=== PATIENT | male | born 1955 | race Caucasian/White ===

== ENCOUNTER 2023-01-13 06:57 | Inpatient (IN) ==
[2023-01-13] MEDS ORDERED: LIDOCAINE 5% 1 PATCH TD STA (07:16)
[2023-01-13] MEDS ORDERED: MoRPHine SULFATE 2 MG/ML CARP IV STA (07:16)
--- NOTE | 2023-01-13 07:23 | Emergency Department Note ---
History of Present Illness General Chief complaint: Back Injury/Pain Time Seen by Provider: 01/13/23 07:04 History of Present Illness Maximum Pain Intensity: 10 This is a 67-year-old male that presents to the emergency department via private vehicle accompanied by with complaints of "right low back/leg pain". The patient notes over the past few days he has had some mild discomfort to the right low back and then last night while sitting seem to sharply worsen. He notes that it radiates from the right low back down the right leg. He has to stay in a slightly hunched over position to have any comfort. He notes that if he attempts to lay flat or stand the pain is significant. He notes low back pain earlier this year which led to him receiving an injection he lives was a steroid injection at [facility] by Dr. Ma on November 21 of this year. Patient notes that the pain he has today is significantly worsened compared to pain he has had before in the back. He denies any fevers, chills, chest pain, shortness of breath or abdominal pain. He notes perhaps some numbness in the right anterior thigh region. No weakness. No bowel or bladder incontinence. No numbness or tingling in genital region. No fevers. No infectious symptoms. No history of spine surgery. Home Medications Medication Instructions Recorded Confirmed Type aspirin 81 mg tablet,delayed 81 mg PO PM 04/14/19 01/13/23 History release (Aspir-) atorvastatin 40 mg tablet 40 mg PO HS 04/14/19 01/13/23 History losartan 25 mg tablet 25 mg PO PM 04/14/19 01/13/23 History semaglutide 1 mg/dose (2 mg/1.5 1 mg subcut WK 04/14/19 01/13/23 History mL) subcutaneous pen injector (Ozempic) glipizide 10 mg tablet, extended See Rx Instructions .Route .COMPLEX 01/13/23 01/13/23 History release 24 hr glipizide 5 mg tablet, extended See Rx Instructions .Route .COMPLEX 01/13/23 01/13/23 History release 24 hr metformin 500 mg tablet,extended 2,000 mg PO PM 01/13/23 01/13/23 History release 24 hr Allergies Allergy/AdvReac Type Severity Reaction Status Date / Time bee venom protein (honey bee) Allergy Intermediate ITCHING/SWE Verified 01/13/23 09:58 LLING Penicillins Allergy Unknown RASH Verified 01/13/23 09:58 Past Med/Surg History Medical History Osteoarthritis Diabetes mellitus, type 2 Hyperlipidemia Hypertension Surgical History History of right cataract surgery 04/20/2019. 2mg versed. no issues. History of appendectomy History of total knee replacement BILAT History of colonoscopy History of tooth extraction History of tonsillectomy Family History Father Colon cancer Social History Smoking Status: Never smoker Second Hand Exposure: No; Do You Dip or Chew Tobacco: No; Hx Alcohol Use: No Hx Substance Use: Yes Last Used Substance Other:: Last used in 1985. Substance Use Type Other:: Alcohol Preferred Language: Pashto Communication Ability: Effective Laboratory Aide Required: No Beliefs That Will Affect Care: None Current Living Situation: Spouse Other Information That Helps Us Care for You: No Feels Safe at Home: Yes Safety Concerns: Feels Safe At This Time Assistive Devices: Denture - Upper and Denture - Lower Review of Systems A total of 10 systems reviewed and were otherwise negative Physical Exam Vital Signs Vital Signs - 24 hr 01/13/23 07:01 01/13/23 07:37 01/13/23 07:37 Temperature 36.2 C L Temperature Source Temporal Artery Scan Pulse Rate 76 Pulse Rate [Apical] 75 Respiratory Rate 18 18 Respiratory Effort / Characteristics Non-Labored Respiratory Depth Normal Blood Pressure 175/88 H Blood Pressure [Left Arm] Blood Pressure Mean 117 Blood Pressure Mean [Left Arm] Pulse Oximetry 97 98 99 Oxygen Delivery Method Room Air Room Air Sepsis Recent Fever Within 48 Hours No Sepsis New/Unexplained Change in Mental Status No Sepsis Action Taken by Nursing No Action Required 01/13/23 09:36 01/13/23 09:38 Temperature Temperature Source Pulse Rate 81 Pulse Rate [Apical] 75 Respiratory Rate 16 Respiratory Effort / Characteristics Respiratory Depth Blood Pressure Blood Pressure [Left Arm] 135/82 Blood Pressure Mean Blood Pressure Mean [Left Arm] 99 Pulse Oximetry 97 Oxygen Delivery Method Sepsis Recent Fever Within 48 Hours Sepsis New/Unexplained Change in Mental Status Sepsis Action Taken by Nursing VITAL SIGNS - Vital signs and nursing notes were reviewed. Stable and afebrile. GENERAL -67-year-old male appearing his stated age who is in no acute distress but appears to be in pain. Communicates well with provider and answers questions appropriately. SKIN - Without rashes. No meningeal or petechial rash. No herpetic lesions. The skin overlying the right low back is unremarkable. HEAD - NC/AT. EYES - PERRL with EOMI bilaterally. Sclera anicteric. EARS - No deformities of external structures noted on gross examination bilaterally. NOSE - Midline and without cyanosis. No epistaxis or purulent drainage noted. MOUTH/OROPHARYNX - Without perioral cyanosis. NECK - Neck with FROM. No nuchal rigidity. LUNGS - Chest wall symmetric without accessory muscle use, intercostals retractions, or central cyanosis. Normal vesicular breath sounds CTA B/L. No wheezes, rales, or rhonchi appreciated. CARDIAC - RRR with S1/S2. No murmur, rubs, or gallops appreciated. ABDOMEN - Abdominal contour normal without pulsations or visible masses. BS normoactive all four quadrants. No tenderness, palpable masses, hepatosplenomegaly, or ascites noted. EXTREMITIES - No clubbing or peripheral cyanosis. +5/5 strength noted in UE/LE bilaterally. All Musculoskeletalthe patient is able to stand at the bedside but in a hunched over position. He is not able to stand up straight or any normal position. He is also not able to lay flat without severe pain. NEUROLOGIC - Cranial nerves II through XII grossly intact. No deficits of the lower extremities. PSYCH - A&O, and cooperates fully with examiner. Pt is very pleasant and interacts well with examiner. Course Administered Medications Hydrocodone Bitart/Acetaminophen (Hydrocodone/Acetamophen 5/325mg Tab) 1 tab PO Q6H PRN PRN Reason: Severe Pain (Scale 7, 8, 9,10) Stop: 01/27/23 11:41 Last Admin: 01/13/23 20:20 Dose: 1 tab Documented By: BALA Aspirin (Aspirin 81 Mg Ectab) 81 mg PO PM SYMONE Stop: 02/12/23 20:59 Last Admin: 01/13/23 20:21 Dose: 81 mg Documented By: BALA Atorvastatin Calcium (Atorvastatin 40 Mg Tab) 40 mg PO HS [facility] Stop: 02/12/23 20:59 Last Admin: 01/13/23 20:20 Dose: 40 mg Documented By: BALA Docusate Sodium (Docusate Sodium 100 Mg Cap) 100 mg PO BID [facility] Stop: 02/12/23 10:59 Last Admin: 01/13/23 20:23 Dose: 100 mg Documented By: Admin: 01/13/23 11:15 Dose: 100 mg Documented By: KHUSHI Heparin Sodium (Porcine) (Heparin Sod 5,000 Unit/0.5 Ml Vial) 5,000 units SQ Q12 [facility] Stop: 02/12/23 20:59 Last Admin: 01/13/23 20:21 Dose: 5,000 units Documented By: BALA Insulin Aspart (Insulin Aspart Per Unit Charge) 0 units SC ACHS [facility] Stop: 02/12/23 11:29 Last Admin: 01/13/23 21:39 Dose: Not Given Documented By: BALA Co-signed By: JEROD Admin: 01/13/23 17:32 Dose: Not Given Documented By: Admin: 01/13/23 12:56 Dose: Not Given Documented By: JOSE Insulin Glargine (Lantus Per Unit Charge) 8 units SQ BID [facility] Stop: 02/12/23 10:44 Last Admin: 01/13/23 21:39 Dose: 8 units Documented By: BALA Co-signed By: JEROD Admin: 01/13/23 11:15 Dose: 8 units Documented By: KHUSHI Co-signed By: JERE Losartan Potassium (Losartan Potassium 25 Mg Tab) 25 mg PO PM [facility] Stop: 02/12/23 20:59 Last Admin: 01/13/23 20:21 Dose: 25 mg Documented By: BALA Miscellaneous (Remove Lidoderm Patch) 1 each N/A DAILY@2100 [facility] Stop: 02/12/23 20:59 Last Admin: 01/13/23 21:40 Dose: 1 each Documented By: BALA Oxycodone HCl (Oxycodone Hcl Ir 5 Mg Tab (Immediate Release)) 5 mg PO Q6H PRN PRN Reason: Moderate Pain (Scale 4, 5, 6) Stop: 01/27/23 11:41 Last Admin: 01/13/23 14:26 Dose: 5 mg Documented By: JOSE Discontinued Medications Fentanyl Citrate (Fentanyl Citrate Pf 100 Mcg/2 Ml Vial) 50 mcg IV NOW STA Stop: 01/13/23 08:16 Last Admin: 01/13/23 08:20 Dose: 50 mcg Documented By: AUGUSTUS Ketorolac Tromethamine (Ketorolac Tromethamine 15 Mg/Ml Vial) 10 mg IV NOW ONE Stop: 01/13/23 10:05 Last Admin: 01/13/23 10:26 Dose: 10 mg Documented By: AUGUSTUS Lidocaine (Lidocaine 5% 1 Patch) 1 patch TD NOW STA Stop: 01/13/23 07:17 Last Admin: 01/13/23 07:28 Dose: 1 patch Documented By: AUGUSTUS Morphine Sulfate (Morphine Sulfate 2 Mg/Ml Carp) 2 mg IV NOW STA Stop: 01/13/23 07:17 Last Admin: 01/13/23 07:28 Dose: 2 mg Documented By: AUGUSTUS Medical Decision Making Laboratory Data 01/13/23 07:30 01/13/23 07:30 Lab Results 01/13/23 Range/Units 07:30 WBC 6.97 (4.8-10.8) K/ul RBC 4.69 L (4.70-6.10) M/uL Hgb 13.9 L (14.0-18.0) g/dl Hct 41.2 L (42.0-52.0) % MCV 87.8 (80.0-100.0) fL MCH 29.6 (25.0-34.0) pg MCHC 33.7 (32.0-36.0) g/dL RDW Std Deviation 45.8 (36.4-46.3) fL RDW Coeff of [place] 14.3 (11.5-14.5) % Plt Count 201 (130-400) K/uL MPV 10.0 (9.4-12.4) fL Immature Gran % (Auto) 0.6 % Neut % (Auto) 70.5 % Lymph % (Auto) 19.9 % [place] % (Auto) 5.9 % Eos % (Auto) 2.7 % Baso % (Auto) 0.4 % Neut # (Auto) 4.91 (1.40-6.50) K/uL Lymph # (Auto) 1.39 (1.20-3.40) K/uL [place] # (Auto) 0.41 (0.11-0.59) K/uL Eos # (Auto) 0.19 (0.00-0.50) K/uL Baso # (Auto) 0.03 (0.00-0.20) K/uL Immature Gran # (Auto) 0.04 (0.01-0.20) K/uL Sodium 142 (136-145) mmol/L Potassium 4.2 (3.5-5.1) mmol/L Chloride 109 H (98-107) mmol/L Carbon Dioxide 22 (21-32) mmol/L Anion Gap 11 (3-11) BUN 22 (6-23) mg/dl Creatinine 1.05 (0.6-1.4) mg/dl Est Cr Clr Drug Dosing 71.6 ml/min Est GFR ( Amer) 84.1 ml/min Est GFR (Non-Af Amer) 72.6 ml/min BUN/Creatinine Ratio 21.0 H (10-20) Glucose 117 H (70-99(Fasting)) mg/dl Calcium 9.2 (8.6-10.3) mg/dl Total Bilirubin 0.6 (0.2-1.0) mg/dl AST 29 (13-39) U/L ALT 26 (7-52) U/L Alkaline Phosphatase 48 (34-104) U/L Total Protein 7.4 (6.0-8.3) gm/dl Albumin 4.4 (3.4-5.0) gm/dl Globulin 3.0 (2.5-4.0) gm/dl Albumin/Globulin Ratio 1.5 (0.9-2) Imaging Data Radiologist's Impression: CT abd pelvis wo con, CT lumbar spine wo con CLINICAL HISTORY: R low back pain, into R gluteal area, down R leg TECHNIQUE: Helical axial images of the abdomen and pelvis were obtained. Automated dose lowering techniques and/or adjustment according to patient size were utilized for this exam. This exam was performed without intravenous contrast. COMPARISON: None available at the time of this dictation. FINDINGS: Lower chest: No acute abnormality. Atherosclerotic disease is seen in the coronary arteries. Liver: Unremarkable. No focal lesions are seen. Gallbladder and biliary tree: No calcified gallstones. Normal caliber wall. No intra- or extrahepatic biliary ductal dilation. Pancreas: Unremarkable, no focal lesions. Spleen: Unremarkable. Adrenals: Unremarkable. Kidneys and ureters: Nonobstructive nephrolithiasis is seen. Bladder: Unremarkable. Reproductive organs: Unremarkable. Bowel: Diverticulosis is seen without evidence of diverticulitis. There is a tiny hiatal hernia. Lymph nodes Retroperitoneal: Unremarkable. Pelvic: Unremarkable. Mesenteric: Unremarkable. Peritoneum: Normal. Vessels: Atherosclerotic calcifications are seen. Abdominal wall: Left fat containing inguinal hernia. Bones: Prominent degenerative changes are seen in the spine and left greater than right hip joints. Partial visualization of degenerative disc disease in the lower spine which may result in significant neural foraminal stenosis. IMPRESSION: 1. No acute abnormalities in particular no evidence of fracture or other acute abnormality to explain leg pain. Degenerative changes are seen in the spine, if there is concern for neural foraminal stenosis, MRI can be performed. 2. Nonobstructive nephrolithiasis. 3. Diverticulosis without diverticulitis. ACT 112: Negative or not required by law. Electronically signed by: Saúl Ag M.D. 01/13/2023 8:52 AM MDM Narrative Patient was seen and evaluated as above in room A02. Review was performed of triage nursing notes and vital signs. After obtaining a thorough history and physical examination the above work up was performed. Patient presents today for evaluation of rather acute and sudden worsening of right low back pain that radiates down the right leg. No known trauma or injury. The patient is not able to stand straight up or lie flat. He notes severe pain when attempting to do those movements. He has to stay essentially in a crouched or hunched position. No evidence of cauda equina syndrome. Options of care were discussed with the patient. IV access was established. He was medicated with IV analgesics as well as lidocaine patch. Labs were drawn. There is no leukocytosis. There is minor anemia noted with hemoglobin at 13.9. No emergent metabolic disturbance. Glucose 117. Urinalysis reveals what is likely a contaminated sample. Noting the patient's symptoms decision was made to proceed with L-spine CT as well as abdomen/pelvis CT to further evaluate noting the severity of his pain. Patient was sent to the CT scanner after receiving IV analgesics but unfortunately was unable to lie flat and had to return for additional IV analgesics. Results as above. There were no acute abnormalities seen. Degenerative changes are seen in the spine. Although MRI may be beneficial to further evaluate, the patient notes he is not able to lay flat for extended period of time presently. The patient does not have any neurovascular deficits. The patient did receive IV analgesics here in the emergency department. He continued with inability to fully stand up straight or lie flat for any period of time. I discussed options in regard to inpatient versus outpatient management. I discussed these options with his present at bedside as well. At this time we will proceed with inpatient management. I am concerned that if the patient would go home in this present state he would be of increased fall risk and would have I believe a difficult time managing his pain as even despite IV pain meds here, his pain persisted. Case was discussed with the hospitalist service. Please refer to further documentation regarding his stay. I suspect lumbar radiculopathy on the right. I did decide to hold off on steroids at the present time pending further evaluation and management. The patient is diabetic. While in the department, I personally reevaluated the patient several times and each time the patient was found to be resting comfortably. The patient was educated upon management, educated upon todays findings/results, educated upon importance of follow up from today's visit, educated upon symptoms in which to return, had questions answered prior to discharge, verbalized understanding, and was discharged home in good condition. Case was discussed with the attending physician. GCS: 15 In the evaluation and treatment of this patient the following differential diagnosis entertained: Fracture, dislocation, subluxation, cauda equina syndrome, AAA, diverticulitis, appendicitis, torsion, osteomyelitis, piriformis syndrome, strain, sprain, among others. Impression & Plan Radicular pain of right lower extremity, Right low back pain Discharge Plan Visit Data Chief Complaint: Back Injury/Pain ED Provider: [facility] Midlevel Provider: Moody Zaidi Discharge Problem: Radicular pain of right lower extremity, Right low back pain Patient Disposition: Admitted As Inpatient Condition: Good Discharge Instructions Interventions: ED Discharge Assessment Last Done: 01/13/23 11:47
[2023-01-13 07:56] LABS: Basophils # (auto) 0.03 K/uL (0.00-0.20); Basophils % (auto) 0.4 %; Eosinophils # (auto) 0.19 K/uL (0.00-0.50); Eosinophils % (auto) 2.7 %; Hematocrit (blood only) 41.2 % (42.0-52.0); Hemoglobin 13.9 g/dl (14.0-18.0); Immature Granulocytes # (auto) 0.04 K/uL (0.01-0.20); Immature Granulocytes % (auto) 0.6 %; Lymphocytes # (auto) 1.39 K/uL (1.20-3.40); Lymphocytes % (auto) 19.9 %; Mean Corpuscular Hemoglobin 29.6 pg (25.0-34.0); Mean Corpuscular Hgb Conc 33.7 g/dL (32.0-36.0); Mean Corpuscular Volume 87.8 fL (80.0-100.0); Monocytes # (auto) 0.41 K/uL (0.11-0.59); Monocytes % (auto) 5.9 %; Neutrophils # (auto) 4.91 K/uL (1.40-6.50); Neutrophils % (auto) 70.5 %; Platelet Count 201 K/uL (130-400); RDW Coefficient of Variation 14.3 % (11.5-14.5); RDW Standard Deviation 45.8 fL (36.4-46.3); Red Blood Count 4.69 M/uL (4.70-6.10); White Blood Count 6.97 K/ul (4.8-10.8)
[2023-01-13 08:15] LABS: Albumin Globulin Ratio 1.5 (0.9-2); Albumin Level 4.4 gm/dl (3.4-5.0); Bilirubin,Total 0.6 mg/dl (0.2-1.0); Calcium 9.2 mg/dl (8.6-10.3); Creatinine Clr Calc Pharmacy 71.6 ml/min; Est GFR (African American) 84.1 ml/min; Est GFR (Non-African American) 72.6 ml/min; Potassium 4.2 mmol/L (3.5-5.1); Total Protein 7.4 gm/dl (6.0-8.3)
[2023-01-13] MEDS ORDERED: fentaNYL citrate PF 100 MCG/2 ML VIAL IV STA (08:15)
--- NOTE | 2023-01-13 08:53 | CT Scan Report ---
CT abd pelvis wo con, CT lumbar spine wo con CLINICAL HISTORY: R low back pain, into R gluteal area, down R leg TECHNIQUE: Helical axial images of the abdomen and pelvis were obtained. Automated dose lowering tech niques and/or adjustment according to patient size were utilized for this exam. This exam was perfor med without intravenous contrast. COMPARISON: None available at the time of this dictation. FINDINGS: Lower chest: No acute abnormality. Atherosclerotic disease is seen in the coronary arteries. Liver: Unremarkable. No focal lesions are seen. Gallbladder and biliary tree: No calcified gallstones. Normal caliber wall. No intra- or extrahepatic biliary ductal dilation. Pancreas: Unremarkable, no focal lesions. Spleen: Unremarkable. Adrenals: Unremarkable. Kidneys and ureters: Nonobstructive nephrolithiasis is seen. Bladder: Unremarkable. Reproductive organs: Unremarkable. Bowel: Diverticulosis is seen without evidence of diverticulitis. There is a tiny hiatal hernia. Lymph nodes Retroperitoneal: Unremarkable. Pelvic: Unremarkable. Mesenteric: Unremarkable. Peritoneum: Normal. Vessels: Atherosclerotic calcifications are seen. Abdominal wall: Left fat containing inguinal hernia. Bones: Prominent degenerative changes are seen in the spine and left greater than right hip joints. P artial visualization of degenerative disc disease in the lower spine which may result in significant neural foraminal stenosis. IMPRESSION: 1. No acute abnormalities in particular no evidence of fracture or other acute abnormality to explai n leg pain. Degenerative changes are seen in the spine, if there is concern for neural foraminal sten osis, MRI can be performed. 2. Nonobstructive nephrolithiasis. 3. Diverticulosis without diverticulitis. ACT 112: Negative or not required by law. Electronically signed by: Saúl Ag M.D. 01/13/2023 8:52 AM
[2023-01-13] MEDS ORDERED: KETOROLAC TROMETHAMINE 15 MG/ML VIAL IV ONE (10:04)
[2023-01-13] MEDS ORDERED: ONDANSETRON INJ 2 MG/ML 2 ML VIAL IV PRN (10:39)
[2023-01-13] MEDS ORDERED: ALUMINUM/MAGNESIUM SUSP 30 ML UDC PO PRN (10:39)
[2023-01-13] MEDS ORDERED: POLYETHYLENE (MIRALAX) 17 GM PACK PO PRN (10:39)
[2023-01-13] MEDS ORDERED: ACETAMINOPHEN 325 MG TAB PO PRN (10:39)
[2023-01-13] MEDS ORDERED: GLUCOSE 40% GEL 15 GM TUBE PO PRN (10:42)
[2023-01-13] MEDS ORDERED: CARBOHYDRATES FOR HYPOGLYCEMIA PO PRN (10:42)
[2023-01-13] MEDS ORDERED: DEXTROSE 50% 50 ML SYRINGE IV PRN (10:42)
[2023-01-13] MEDS ORDERED: GLUCOSE 10 TAB/TUBE PO PRN (10:42)
[2023-01-13] MEDS ORDERED: GLUCAGON FOR INJ 1 MG VIAL SQ PRN (10:42)
--- NOTE | 2023-01-13 10:56 | History & Physical Report ---
Date of Service January 13, 2023 Assessment & Plan (1) Radicular pain of right lower extremity: (2) Right low back pain: Plan Patient came in with abrupt worsening of right lower back pain since yesterday, radiating down to RLE. He is being managed for the following: Right low back pain RLE radicular symptoms Symptoms as above, admitting imaging with no acute finding or fracture. Concern for neural foraminal stenosis, MRI could not be performed as patient not able to lie flat. Continue with pain management, bowel regimen included, nausea control. MRI lumbar spine in the a.m., orthospine consult in the a.m. if symptoms persist. PT/OT when able. Other chronic medical conditions: As mentioned in the HPI, continue with/resume home meds as and when able. DVT prophylaxis: Heparin subcu Full code History of Present Illness Chief Complaint: Right low back pain Primary Care Provider: Preeti Landin MD 67-year-old male with PMH of T2DM, HLD, HTN, BPH presented to the ED with complaint of abrupt worsening of right lower back pain since yesterday, patient notes that he has been having some right low back pain for past couple of days. Reports pain is sharp, radiating down right lower extremity up to ankle, unable to lie flat or stand, slept on recliner last night, it is affecting his activities of daily living severely and hence decided to come to the hospital. Patient reports pain of 8/10 intensity. Patient denies fever/headache/dizziness/sore throat/cough/chest pain/palpitations/abdominal pain/acute changes in his bowel or bladder habits. Patient reports he generally walks 3 miles a day without any shortness of breath/chest pain/getting winded/dizziness. Patient reports no smoking, quitting drinking in 1995, denies use of recreational drugs Full code Medications reviewed with the patient, plan of care discussed with the patient and patient was agreeable. Allergies Allergy/AdvReac Type Severity Reaction Status Date / Time bee venom protein (honey bee) Allergy Intermediate ITCHING/SWE Verified 01/13/23 09:58 LLING Penicillins Allergy Unknown RASH Verified 01/13/23 09:58 Home Medications Medication Instructions Recorded Confirmed Type aspirin 81 mg tablet,delayed 81 mg PO PM 04/14/19 01/13/23 History release (Aspir-) atorvastatin 40 mg tablet 40 mg PO HS 04/14/19 01/13/23 History losartan 25 mg tablet 25 mg PO PM 04/14/19 01/13/23 History semaglutide 1 mg/dose (2 mg/1.5 1 mg subcut WK 04/14/19 01/13/23 History mL) subcutaneous pen injector (Ozempic) glipizide 10 mg tablet, extended See Rx Instructions .Route .COMPLEX 01/13/23 01/13/23 History release 24 hr glipizide 5 mg tablet, extended See Rx Instructions .Route .COMPLEX 01/13/23 01/13/23 History release 24 hr metformin 500 mg tablet,extended 2,000 mg PO PM 01/13/23 01/13/23 History release 24 hr Past Med/Surg History Medical History Osteoarthritis Diabetes mellitus, type 2 Hyperlipidemia Hypertension Surgical History History of right cataract surgery 04/20/2019. 2mg versed. no issues. History of appendectomy History of total knee replacement BILAT History of colonoscopy History of tooth extraction History of tonsillectomy Family History Father Colon cancer Social History Smoking Status: Never smoker Second Hand Exposure: No; Do You Dip or Chew Tobacco: No; Hx Alcohol Use: No Hx Substance Use: No Preferred Language: Croatian Communication Ability: Effective Fitness Club Manager Required: No Beliefs That Will Affect Care: None Current Living Situation: Spouse Feels Safe at Home: Yes Assistive Devices: Denture - Upper, Denture - Lower and Glasses Review of Systems Review of Systems: Negative otherwise mentioned in HPI. Physical Exam Physical Exam: GENERAL: Alert and oriented x3. Mild distress due to pain, on RA. HEENT: No pallor, no icterus. Pupils equal, round and reactive to light. Oral mucosa moist. NECK: No JVD, no neck masses. HEART: S1 and S2 heard. Regular rate and rhythm. No murmur, no gallop. RESPIRATORY SYSTEM: Normal AP diameter. No accessory muscle use. No wheezing, no crackles. ABDOMEN: Soft, bowel sounds present, nontender, no distention. CENTRAL NERVOUS SYSTEM: No facial droop. Speech is clear. Obeys simple commands. Moves extremities. EXTREMITIES: No edema, no erythema seen. SLRT could not be performed as patient cannot lie flat, patient was sitting up in bed/leaning forward. Results & Data Results & Data Vital Signs (Past 12 Hours) Vital Signs Temp Pulse Pulse Resp BP BP Pulse Ox 01/13/23 10:39 56 L 16 122/82 97 01/13/23 09:38 81 01/13/23 09:36 75 16 135/82 97 01/13/23 07:37 99 01/13/23 07:37 75 18 98 01/13/23 07:01 36.2 C L 76 18 175/88 H 97 O2 Del Method 01/13/23 10:39 01/13/23 09:38 01/13/23 09:36 01/13/23 07:37 01/13/23 07:37 Room Air 01/13/23 07:01 Room Air
[2023-01-13] MEDS: LANTUS PER UNIT CHARGE SQ SCH ×2 (11:15→21:39)
[2023-01-13] MEDS: DOCUSATE SODIUM 100 MG CAP PO SCH ×2 (11:15→20:23)
[2023-01-13] MEDS: INSULIN ASPART PER UNIT CHARGE SC SCH ×3 (12:56→21:39)
[2023-01-13] MEDS: oxyCODONE HCL IR 5 MG TAB (IMMEDIATE RELEASE) PO PRN (14:26)
[2023-01-13 18:17] LABS: Appearance Urine Cloudy (Clear); Bacteria Urine Automated Negative (Negative); Bilirubin Urine Negative (Negative); Blood Urine 3+ (Negative); Color Urine Yellow; Glucose Urine UA Negative (Negative); Ketones Urine Trace (Negative); Leukocyte Esterase Urine Negative (Negative); Nitrite Urine Negative (Negative); Protein Urine Trace (Negative); RBC Urine Automated >30 /hpf (0-4); Specific Gravity Urine 1.025 (1.000-1.030); Urobilinogen Urine Negative (Negative)
[2023-01-13] MEDS: ATORVASTATIN 40 MG TAB PO SCH (20:20)
[2023-01-13] MEDS: HYDROCODONE/ACETAMOPHEN 5/325MG TAB PO PRN (20:20)
[2023-01-13] MEDS: HEPARIN SOD 5,000 UNIT/0.5 ML VIAL SQ SCH (20:21)
[2023-01-13] MEDS: ASPIRIN 81 MG ECTAB PO SCH (20:21)
[2023-01-13] MEDS ORDERED: LOSARTAN POTASSIUM 25 MG TAB PO SCH (21:00)
[2023-01-13] MEDS: KETOROLAC TROMETHAMINE 15 MG/ML VIAL IV PRN (23:28)
[2023-01-14] MEDS: HYDROCODONE/ACETAMOPHEN 5/325MG TAB PO PRN (03:10)
[2023-01-14 06:13] LABS: Hematocrit (blood only) 36.2 % (42.0-52.0); Hemoglobin 12.4 g/dl (14.0-18.0); Mean Corpuscular Hgb Conc 34.3 g/dL (32.0-36.0); Mean Corpuscular Volume 87.7 fL (80.0-100.0); Mean Platelet Volume 9.7 fL (9.4-12.4); Platelet Count 158 K/uL (130-400); RDW Standard Deviation 44.4 fL (36.4-46.3); Red Blood Count 4.13 M/uL (4.70-6.10); White Blood Count 5.53 K/ul (4.8-10.8)
[2023-01-14 06:31] LABS: BUN Creatinine Ratio 22.8 (10-20); Calcium 8.6 mg/dl (8.6-10.3); Creatinine Clr Calc Pharmacy 66.1 ml/min; Est GFR (African American) 76.2 ml/min; Est GFR (Non-African American) 65.7 ml/min; Potassium 4.2 mmol/L (3.5-5.1)
[2023-01-14] MEDS: INSULIN ASPART PER UNIT CHARGE SC SCH ×4 (08:36→22:30)
[2023-01-14] MEDS: LANTUS PER UNIT CHARGE SQ SCH ×2 (08:36→22:31)
[2023-01-14] MEDS: oxyCODONE HCL IR 5 MG TAB (IMMEDIATE RELEASE) PO PRN ×2 (08:37→18:49)
[2023-01-14] MEDS: HEPARIN SOD 5,000 UNIT/0.5 ML VIAL SQ SCH ×2 (08:39→20:53)
[2023-01-14] MEDS: LIDOCAINE 5% 1 PATCH TD SCH (08:40)
[2023-01-14] MEDS: KETOROLAC TROMETHAMINE 15 MG/ML VIAL IV PRN (12:09)
[2023-01-14] MEDS: DOCUSATE SODIUM 100 MG CAP PO SCH ×2 (12:09→20:56)
[2023-01-14] MEDS: predniSONE 20 MG TAB PO SCH (14:09)
--- NOTE | 2023-01-14 16:05 | Hospitalist Progress Note ---
Date of Service January 14, 2023 Assessment & Plan (1) Radicular pain of right lower extremity: (2) Right low back pain: Plan Patient came in with abrupt worsening of right lower back pain since yesterday, radiating down to RLE. He is being managed for the following: Lumbosacral radiculopathy Ambulatory dysfunction ? Lumbar foraminal stenosis Had Injection 4 weeks ago by per patient --Lumbar CT:No acute abnormalities in particular no evidence of fracture or other acute abnormality to explain leg pain. Degenerative changes are seen in the spine, if there is concern for neural foraminal stenosis, MRI can be performed. -- Refuses to get MRI as inability to lie flat secondary to pain Fall precautions PT OT Consulted orthopedics Pain control Bowel regimen to prevent constipation Nonobstructive nephrolithiasis. Diverticulosis without diverticulitis. Incidental findings on CT Follow-up as outpatient Hyperlipidemia Continue atorvastatin Hypertension Continue losartan DM II Hold PO meds Continue insulin per protocol Monitor blood glucose levels DVT Px: Heparin SQ Code Status Full code Admission and Anticipated Discharge Date Admission Date: January 13, 2023 Subjective Patient is seen and examined at bedside States having right lower back pain radiating to right lower extremity Also reports ambulatory dysfunction secondary to pain Has been requiring walker for ambulation Denies any bowel or bladder incontinence Also denies any chest pain, dyspnea, dizziness, nausea, vomiting, abdominal pain Refuses to get MRI as has trouble lying flat due to pain Review of Systems Review of Systems: All systems reviewed & are unremarkable except as noted in Subjective Physical Exam Physical Exam: Physical Exam: Vitals signs as noted above General Appearance:Moderately built and nourished, no apparent distress Head: normocephalic, Atraumatic Eyes: normal inspection, EOMI Neck: supple, Trachea midline Respiratory/Chest: Normal breath sounds, CTA, No accessory muscle use Cardiovascular: S1, S2, No murmur Abdomen/GI:Soft, Non tender, Bowel sounds present Extremities/Musculoskeletal:normal inspection, no edema, +Right Sciatic tenderness Neurologic/Psych:AAOX3, grossly no focal neurological deficits Skin: normal color, warm Results & Data Results & Data Vital Signs (Past 12 Hours) Vital Signs Temp Pulse Resp BP Pulse Ox Pulse Ox O2 Del Method 01/14/23 15:36 36.5 C 67 17 161/88 H 99 Room Air 01/14/23 14:02 99 01/14/23 08:17 36.5 C 64 17 165/87 H 99 Room Air O2 Del Method 01/14/23 15:36 01/14/23 14:02 Room Air 01/14/23 08:17 Laboratory Results Short CBC 01/14/23 Range/Units 05:55 WBC 5.53 (4.8-10.8) K/ul Hgb 12.4 L (14.0-18.0) g/dl Hct 36.2 L (42.0-52.0) % Plt Count 158 (130-400) K/uL BMP 01/14/23 05:55 Sodium 137 Potassium 4.2 Chloride 105 Carbon Dioxide 26 BUN 26 H Creatinine 1.14 Glucose 121 H Calcium 8.6 Urine 01/13/23 Range/Units 18:00 Urine Color Yellow Urine Appearance Cloudy A (Clear) Urine pH 5.0 (4.5-7.5) Ur Specific [place] 1.025 (1.000-1.030) Urine Protein Trace H (Negative) Urine Glucose (UA) Negative (Negative)
[2023-01-14] MEDS ORDERED: LORazepam 2 MG/1 ML VIAL IV PRN (18:39)
[2023-01-14] MEDS ORDERED: HYDROmorphone INJ 1 MG/ML SYRINGE IV ONE (18:45)
--- NOTE | 2023-01-14 20:49 | Magnetic Resonance Report ---
Exam(s): MRI L SPINE Without Contrast EXAM: MR Lumbar Spine Without Intravenous Contrast CLINICAL HISTORY: Reason for exam: back and right leg pain. TECHNIQUE: Magnetic resonance images of the lumbar spine without intravenous contrast in multiple planes. COMPARISON: CT lumbar spine 01/13/2023. FINDINGS: Vertebrae: Modic degenerative endplate changes are seen in the lumbar spine. Grade 1 anterolisthesis of L4 on L5. Chronic compression deformity of the T11 and T12 vertebral bodies. Spinal cord: Unremarkable. No discrete signal abnormality is seen in the distal spinal cord or the descending nerve roots on motion degraded examination. Soft tissues: Unremarkable. DISCS/SPINAL CANAL/NEURAL FORAMINA: T12-L1: Disc bulge with endplate osteophytes and bilateral facet arthrosis. No significant spinal canal stenosis or foraminal narrowing. L1-L2: Disc bulge with endplate osteophytes and bilateral facet arthrosis. No significant spinal canal stenosis or foraminal narrowing. L2-L3: Disc bulge with endplate osteophytes and bilateral facet arthrosis. Mild spinal canal stenosis. Mild bilateral foraminal narrowing. L3-L4: Disc bulge with endplate osteophytes and bilateral facet arthrosis. Moderate spinal canal stenosis. Moderate right and mild-to- moderate left foraminal narrowing. L4-L5: Disc bulge with endplate osteophytes and severe bilateral facet arthrosis. Bilateral facet joint effusions as well as synovial cysts. Moderate spinal canal stenosis. Severe bilateral foraminal narrowing with possible impingement of exiting bilateral L4 nerve roots. L5-S1: Disc bulge with endplate osteophytes and severe bilateral facet arthrosis. Bilateral facet joint effusions. No significant spinal canal stenosis. Moderate to severe bilateral foraminal narrowing. Other findings: Examination is severely degraded by extensive patient motion. IMPRESSION: 1. Examination is severely degraded by extensive patient motion. 2. Moderate to severe degenerative change of the lumbar spine as described. 3. Moderate spinal canal stenosis is seen L3-L4 and L4-L5. 4. Severe bilateral foraminal narrowing at L4-L5 with possible impingement of the exiting bilateral L4 nerve roots. Recommend correlation for symptoms. Electronically signed by: Arya Islas MD 01/14/23 20:48 PM
[2023-01-14] MEDS: LOSARTAN POTASSIUM 50 MG TAB PO SCH (20:51)
[2023-01-14] MEDS: ASPIRIN 81 MG ECTAB PO SCH (20:52)
[2023-01-14] MEDS: ATORVASTATIN 40 MG TAB PO SCH (20:52)
[2023-01-15] MEDS: HYDROCODONE/ACETAMOPHEN 5/325MG TAB PO PRN ×2 (00:09→12:43)
[2023-01-15 06:35] LABS: Hematocrit (blood only) 38.3 % (42.0-52.0); Hemoglobin 13.1 g/dl (14.0-18.0); Mean Corpuscular Hemoglobin 29.6 pg (25.0-34.0); Mean Corpuscular Hgb Conc 34.2 g/dL (32.0-36.0); Mean Corpuscular Volume 86.7 fL (80.0-100.0); Mean Platelet Volume 10.1 fL (9.4-12.4); Platelet Count 198 K/uL (130-400); RDW Coefficient of Variation 13.7 % (11.5-14.5); RDW Standard Deviation 43.5 fL (36.4-46.3); Red Blood Count 4.42 M/uL (4.70-6.10); White Blood Count 6.24 K/ul (4.8-10.8)
[2023-01-15 06:53] LABS: BUN Creatinine Ratio 19.4 (10-20); Calcium 9.1 mg/dl (8.6-10.3); Creatinine Clr Calc Pharmacy 73.2 ml/min; Est GFR (African American) 86.1 ml/min; Est GFR (Non-African American) 74.3 ml/min; Magnesium 1.4 mg/dl (1.7-2.4); Potassium 4.1 mmol/L (3.5-5.1)
[2023-01-15] MEDS: predniSONE 20 MG TAB PO SCH (07:54)
[2023-01-15] MEDS: LIDOCAINE 5% 1 PATCH TD SCH (07:54)
[2023-01-15] MEDS: HEPARIN SOD 5,000 UNIT/0.5 ML VIAL SQ SCH ×2 (07:55→19:52)
[2023-01-15] MEDS: oxyCODONE HCL IR 5 MG TAB (IMMEDIATE RELEASE) PO PRN ×2 (08:00→22:03)
[2023-01-15] MEDS: LANTUS PER UNIT CHARGE SQ SCH ×2 (08:01→22:41)
[2023-01-15] MEDS: INSULIN ASPART PER UNIT CHARGE SC SCH ×4 (08:01→22:40)
[2023-01-15] MEDS: DOCUSATE SODIUM 100 MG CAP PO SCH (08:03)
[2023-01-15] MEDS: MAGNESIUM SULFATE / D5W 1 GM/100 ML BAG IV SCH ×2 (08:49→10:30)
[2023-01-15] MEDS: DOCUSATE SODIUM/SENNA 50/8.6MG TAB PO SCH ×2 (10:32→19:51)
--- NOTE | 2023-01-15 10:51 | Orthopedic Consultation ---
Date of Consultation January 15, 2023 Assessment & Plan (1) Lumbar disc herniation with radiculopathy: Assessment lumbar disc herniation with radiculopathy, lumbar spondylolisthesis L4-L5, lumbar spinal stenosis L4-5 L5-S1. Plan at this time would like discussion today with patient regarding his symptom complex and MRI. The MRI demonstrates evidence of grade 1 spondylolisthesis L4-L5 with severe neuroforaminal disease on the right with evidence of a foraminal disc herniation markedly displacing the exiting L4 nerve root. L5-S1 has marked facet hypertrophy with facet cyst posteriorly. There is neuroforaminal disease. Plan at this time he would like to see surgical invention in light of his severe pain and inability ambulate weakness. This is reasonable considering his neuro deficit and pattern of neural compression. Would require lumbar decompression fusion L4-5 and possibly L5-S1. Risk benefits pros cons and alternatives were outlined detail. Risk include but not limited to anesthesia blindness stroke paralysis nerve damage blood loss requiring transfusion infection requiri ng reoperation benefits of lumbar complain of his radiculopathy and return to full function. At this time we will have him worked up medically and plan for surgery soon as possible. History of Present Illness Reason for Consultation: Back and right leg pain Attending Physician: Prashanth Caldwell MD History of Present Illness This is a 59-year-old male who presents to the hospital yesterday with severe right leg pain and inability to ambulate. He states symptoms began Saturday simply while walking. He denies any specific trauma fall or event. Denies any previous history of back or leg symptoms. He is otherwise a very active man. He states his left lower extremity is asymptomatic. He is noting significant weakness in the right leg. Allergies Allergy/AdvReac Type Severity Reaction Status Date / Time bee venom protein (honey bee) Allergy Intermediate ITCHING/SWE Verified 01/13/23 09:58 LLING Penicillins Allergy Unknown RASH Verified 01/13/23 09:58 Home Medications Medication Instructions Recorded Confirmed Type aspirin 81 mg tablet,delayed 81 mg PO PM 04/14/19 01/13/23 History release (Aspir-) atorvastatin 40 mg tablet 40 mg PO HS 04/14/19 01/13/23 History losartan 25 mg tablet 25 mg PO PM 04/14/19 01/13/23 History semaglutide 1 mg/dose (2 mg/1.5 1 mg subcut WK 04/14/19 01/13/23 History mL) subcutaneous pen injector (Ozempic) glipizide 10 mg tablet, extended See Rx Instructions .Route .COMPLEX 01/13/23 01/13/23 History release 24 hr glipizide 5 mg tablet, extended See Rx Instructions .Route .COMPLEX 01/13/23 01/13/23 History release 24 hr metformin 500 mg tablet,extended 2,000 mg PO PM 01/13/23 01/13/23 History release 24 hr Patient History Medical History Osteoarthritis Diabetes mellitus, type 2 Hyperlipidemia Hypertension Surgical History History of right cataract surgery 04/20/2019. 2mg versed. no issues. History of appendectomy History of total knee replacement BILAT History of colonoscopy History of tooth extraction History of tonsillectomy Family History Father Colon cancer Social History Smoking Status: Never smoker Second Hand Exposure: No; Do You Dip or Chew Tobacco: No; Hx Alcohol Use: No Hx Substance Use: Yes Last Used Substance Other:: Last used in 1985. Substance Use Type Other:: Alcohol Preferred Language: Czech Communication Ability: Effective Parts Finisher Required: No Beliefs That Will Affect Care: None Current Living Situation: Spouse Other Information That Helps Us Care for You: No Feels Safe at Home: Yes Safety Concerns: Feels Safe At This Time Assistive Devices: None Physical Exam Physical Exam: On exam he is most comfortable in bed with his legs flexed. Exhibits +5-5 jesus ntarflexion dorsiflexion quadriceps on the left with a 4 - quadriceps on the right with sensory deficits. He has marked tension signs straight leg raising on the right. Deep tendon reflexes diminished. Results & Data Vital Signs (Past 12 Hours) Vital Signs Temp Pulse Resp BP Pulse Ox O2 Del Method 01/15/23 08:41 36.7 C 68 16 150/94 H 96 Room Air
--- NOTE | 2023-01-15 12:28 | Hospitalist Progress Note ---
Date of Service January 15, 2023 Assessment & Plan (1) Radicular pain of right lower extremity: (2) Right low back pain: Plan Patient came in with abrupt worsening of right lower back pain since yesterday, radiating down to RLE. He is being managed for the following: Lumbosacral radiculopathy Ambulatory dysfunction ? Lumbar foraminal stenosis Had Injection 4 weeks ago by per patient --Lumbar CT:No acute abnormalities in particular no evidence of fracture or other acute abnormality to explain leg pain. Degenerative changes are seen in the spine, if there is concern for neural foraminal stenosis, MRI can be performed. --MRI:1. Examination is severely degraded by extensive patient motion.2. Moderate to severe degenerative change of the lumbar spine as described.3. Moderate spinal canal stenosis is seen L3-L4 and L4-L5.4. Severe bilateral foraminal narrowing at L4-L5 with possible impingement of the exiting bilateral L4 nerve roots. Recommend correlation for symptoms. Fall precautions PT OT Consulted orthopedics - appreciate recs, plan for possible lumbar decompression fusion L4-L5 and possibly L5-S1, will obtain EKG and chest x-ray for preoperative work CXR: No acute abn; EKG pending pt active/avid golf, walks 9 holes, denies CP/SOB, able to perform > 4 Mets of activity Pain control increase bowel regimen to senna s one tab bid, prn miralax Nonobstructive nephrolithiasis. Diverticulosis without diverticulitis. Incidental findings on CT Follow-up as outpatient Hyperlipidemia Continue atorvastatin Hypertension Continue losartan Bp on higher side 2/2 pain DM II Hold PO meds Continue insulin per protocol Monitor blood glucose levels DVT Px: Heparin SQ Code Status Full code Dispo: plan for possible surgical intervention, will do pre op testing Pt was seen and examined in collaboration with Dr. Caldwell, please see addendum Admission and Anticipated Discharge Date Admission Date: January 15, 2023 Supervising Physician Co-Signing Physician Notes Patient is seen and examined at bedside. Continues to complain of right sided back pain radiating down right lower extremity. No other complaints. Physical exam unchanged from yesterday. MRI spine suggestive of moderate to severe degenerative changes in the lumbar spine, moderate spinal canal stenosis L3-L4 and L4-L5, severe bilateral foraminal narrowing at L4-L5 with possible impingement of exiting bilateral L4 nerve. Appreciate orthopedics input. Plan for lumbar decompression fusion surgery by Dr. Talamantes on 01/17/2023. Bowel regimen to prevent constipation. Fall precautions. I personally reviewed the record. Patient is interviewed and examined at bedside. Patient's care is coordinated with Esthela Cervantes PA-C. Please refer to the documentation above for details of patient's presentation and for discussion of other issues. Subjective Patient was seen and examined in room 315. Continues to complain right-sided back pain. States pain started all of a sudden whenever he was getting up to go to the bathroom. Pain is mostly down the right lower extremity, limiting the foot. He occasionally has some numbness but denies any tingling. He denies any bowel or bladder anesthesia. He feels he is getting constipated secondary to pain meds. Pain meds do help alleviate the severe pain. But has significant pain with movement. Review of Systems Review of Systems: All systems reviewed & are unremarkable except as noted in HPI & below Physical Exam Physical Exam: Gen: WD/WN, NAD, A&O x3 HEENT: Normocephalic, atraumatic, conjunctivae moist, sclerae anicteric, mucous membranes moist. Lung: Clear to Auscultation bilaterally, no wheezes/rales/rhonchi Heart: Regular rate, regular rhythm, no murmurs, rubs, or gallops Abdomen: Soft, NT, ND +BS x 4 Extremities: No edema Skin: Warm, no rash, negative turgor. Results & Data Results & Data Vital Signs (Past 12 Hours) Vital Signs Temp Pulse Resp BP Pulse Ox O2 Del Method 01/15/23 08:41 36.7 C 68 16 150/94 H 96 Room Air Medications Administered Current Inpatient Medications Acetaminophen (Acetaminophen 325 Mg Tab) 650 mg PO Q4H PRN PRN Reason: pain/fever Stop: 02/12/23 10:38 Hydrocodone Bitart/Acetaminophen (Hydrocodone/Acetamophen 5/325mg Tab) 1 tab PO Q6H PRN PRN Reason: Severe Pain (Scale 7, 8, 9,10) Stop: 01/27/23 11:41 Last Admin: 01/15/23 00:09 Dose: 1 tab Al Hydrox/Mg Hydrox/Simethicone (Aluminum/Magnesium Susp 30 Ml Udc) 30 ml PO Q6H PRN PRN Reason: Dyspepsia Stop: 02/12/23 10:38 Aspirin (Aspirin 81 Mg Ectab) 81 mg PO PM SYMONE Stop: 02/12/23 20:59 Last Admin: 01/14/23 20:52 Dose: 81 mg Atorvastatin Calcium (Atorvastatin 40 Mg Tab) 40 mg PO HS SYMONE Stop: 02/12/23 20:59 Last Admin: 01/14/23 20:52 Dose: 40 mg Dextrose (Dextrose 50% 50 Ml Syringe) 25 - 50 ml IV UD PRN; Protocol PRN Reason: Hypoglycemia Protocol Stop: 02/12/23 10:41 Glucagon (Glucagon For Inj 1 Mg Vial) 1 mg SQ UD PRN; Protocol PRN Reason: Hypoglycemia Protocol Stop: 02/12/23 10:41 Glucose (Glucose 10 Tab/Tube) 4 - 8 tab PO UD PRN; Protocol PRN Reason: Hypoglycemia Treatment Stop: 02/12/23 10:41 Glucose (Glucose 40% Gel 15 Gm Tube) 15 - 30 gm PO UD PRN; Protocol PRN Reason: Hypoglycemia Protocol Stop: 02/12/23 10:41 Heparin Sodium (Porcine) (Heparin Sod 5,000 Unit/0.5 Ml Vial) 5,000 units SQ Q12 SYMONE Stop: 02/12/23 20:59 Last Admin: 01/15/23 07:55 Dose: 5,000 units Insulin Aspart (Insulin Aspart Per Unit Charge) 0 units SC ACHS [facility] Stop: 02/12/23 11:29 Last Admin: 01/15/23 08:01 Dose: 4 units Insulin Glargine (Lantus Per Unit Charge) 8 units SQ BID [facility] Stop: 02/12/23 10:44 Last Admin: 01/15/23 08:01 Dose: 8 units Ketorolac Tromethamine (Ketorolac Tromethamine 15 Mg/Ml Vial) 10 mg IV Q6H PRN PRN Reason: moderate to severe pain Stop: 01/18/23 11:41 Last Admin: 01/14/23 12:09 Dose: 10 mg Lidocaine (Lidocaine 5% 1 Patch) 1 patch TD QAM [facility] Stop: 02/13/23 08:59 Last Admin: 01/15/23 07:54 Dose: 1 patch Lorazepam (Lorazepam 2 Mg/1 Ml Vial) 1 mg IV Q8H PRN PRN Reason: Anxiety/Agitation Stop: 02/13/23 18:38 Losartan Potassium (Losartan Potassium 50 Mg Tab) 50 mg PO PM [facility] Stop: 02/13/23 20:59 Last Admin: 01/14/23 20:51 Dose: 50 mg Magnesium Hydroxide (Magnesium Hydroxide Susp 30 Ml Udc) 30 ml PO Q6H PRN PRN Reason: Constipation Stop: 02/12/23 10:38 Miscellaneous (Carbohydrates For Hypoglycemia ) 15 - 30 gm PO UD PRN PRN Reason: Hypoglycemia Protocol Stop: 02/12/23 10:41 Miscellaneous (Remove Lidoderm Patch) 1 each N/A DAILY@2100 [facility] Stop: 02/12/23 20:59 Last Admin: 01/14/23 20:53 Dose: 1 each Ondansetron HCl (Ondansetron Inj 2 Mg/Ml 2 Ml Vial) 4 mg IV Q6H PRN PRN Reason: Nausea Stop: 02/12/23 10:38 Oxycodone HCl (Oxycodone Hcl Ir 5 Mg Tab (Immediate Release)) 5 mg PO Q6H PRN PRN Reason: Moderate Pain (Scale 4, 5, 6) Stop: 01/27/23 11:41 Last Admin: 01/15/23 08:00 Dose: 5 mg Polyethylene Glycol (Polyethylene (Miralax) 17 Gm Pack) 17 gm PO DAILY PRN PRN Reason: Constipation Stop: 02/12/23 10:38 Prednisone (Prednisone 20 Mg Tab) 20 mg PO DAILY [facility] Stop: 02/13/23 12:14 Last Admin: 01/15/23 07:54 Dose: 20 mg Senna/Docusate Sodium (Docusate Sodium/Senna 50/8.6mg Tab) 1 tab PO BID [facility] Stop: 02/14/23 08:59 Last Admin: 01/15/23 10:32 Dose: 1 tab
--- NOTE | 2023-01-15 12:41 | XRay Report ---
XR chest 1V portable HISTORY: 67 years-old Male pre op preoperative exam COMPARISON: None TECHNIQUE: AP view of the chest FINDINGS: Cardiomediastinal and hilar silhouettes are within normal limits. No pneumothorax, pleural effusion o r airspace consolidation. Distal descending thoracic aortic tortuosity. Bones appear grossly intact. IMPRESSION: No acute process. ACT 112: Negative or not required by law. The above report was generated using voice recognition software. It may contain grammatical, syntax o r spelling errors. Electronically signed by: Selwyn Shane M.D. 01/15/2023 12:40 PM
[2023-01-15] MEDS: ATORVASTATIN 40 MG TAB PO SCH (19:51)
[2023-01-15] MEDS: LOSARTAN POTASSIUM 50 MG TAB PO SCH (19:51)
[2023-01-15] MEDS: ASPIRIN 81 MG ECTAB PO SCH (19:51)
[2023-01-16] MEDS: HYDROCODONE/ACETAMOPHEN 5/325MG TAB PO PRN ×2 (02:28→13:23)
[2023-01-16 07:10] LABS: Hematocrit (blood only) 39.1 % (42.0-52.0); Hemoglobin 13.7 g/dl (14.0-18.0); Mean Corpuscular Hemoglobin 29.7 pg (25.0-34.0); Mean Corpuscular Volume 84.8 fL (80.0-100.0); Mean Platelet Volume 9.9 fL (9.4-12.4); Platelet Count 210 K/uL (130-400); RDW Coefficient of Variation 13.8 % (11.5-14.5); RDW Standard Deviation 42.5 fL (36.4-46.3); Red Blood Count 4.61 M/uL (4.70-6.10); White Blood Count 8.25 K/ul (4.8-10.8)
[2023-01-16 07:40] LABS: Calcium 9.2 mg/dl (8.6-10.3); Magnesium 1.6 mg/dl (1.7-2.4); Potassium 4.1 mmol/L (3.5-5.1)
[2023-01-16 07:46] LABS: BUN Creatinine Ratio 20.6 (10-20); Creatinine Clr Calc Pharmacy 70.5 ml/min; Est GFR (African American) 82.2 ml/min
[2023-01-16] MEDS: INSULIN ASPART PER UNIT CHARGE SC SCH ×4 (08:27→21:29)
[2023-01-16] MEDS: LANTUS PER UNIT CHARGE SQ SCH ×2 (08:27→21:29)
[2023-01-16] MEDS: oxyCODONE HCL IR 5 MG TAB (IMMEDIATE RELEASE) PO PRN ×2 (08:31→20:36)
[2023-01-16] MEDS: LIDOCAINE 5% 1 PATCH TD SCH (08:32)
[2023-01-16] MEDS: DOCUSATE SODIUM/SENNA 50/8.6MG TAB PO SCH ×2 (08:32→20:32)
[2023-01-16] MEDS: predniSONE 20 MG TAB PO SCH (08:34)
[2023-01-16] MEDS: HEPARIN SOD 5,000 UNIT/0.5 ML VIAL SQ SCH (08:35)
--- NOTE | 2023-01-16 09:03 | Anesthesiology Consultation ---
Date of Service January 16, 2023 Assessment & Plan Chart Review Chart Review: Acceptable Risk for Surgery and Patient NOT seen in Pre Admission Testing Consults Requested none History Surgery Operation Date: 01/17/23 07:45 Proposed Procedures p L4-S1 Decompression and Fusion - Grady Talamantes DO Height/Weight Height: 5 ft 8 in Weight: 85.9 kg Allergies Allergy/AdvReac Type Severity Reaction Status Date / Time bee venom protein (honey bee) Allergy Intermediate ITCHING/SWE Verified 01/13/23 09:58 LLING Penicillins Allergy Unknown RASH Verified 01/13/23 09:58 Medications Home Medications Medication Instructions Recorded Confirmed Last Taken aspirin 81 mg tablet,delayed 81 mg PO PM 04/14/19 01/13/23 01/12/23 release (Aspir-) atorvastatin 40 mg tablet 40 mg PO HS 04/14/19 01/13/23 01/12/23 losartan 25 mg tablet 25 mg PO PM 04/14/19 01/13/23 01/12/23 semaglutide 1 mg/dose (2 mg/1.5 1 mg subcut WK 04/14/19 01/13/23 01/07/23 mL) subcutaneous pen injector (Fast FiBR) glipizide 10 mg tablet, extended See Rx Instructions .Route .COMPLEX 01/13/23 01/13/23 01/12/23 release 24 hr glipizide 5 mg tablet, extended See Rx Instructions .Route .COMPLEX 01/13/23 01/13/23 01/12/23 release 24 hr metformin 500 mg tablet,extended 2,000 mg PO PM 01/13/23 01/13/23 01/12/23 release 24 hr Active Medications Generic Name Dose Route Start Last Admin Trade Name Freq PRN Reason Stop Dose Admin Hydrocodone Bitart/Acetaminophen 1 tab 01/13/23 11:42 01/16/23 02:28 Hydrocodone/Acetamophen 5/325mg Tab PO 01/27/23 11:41 1 tab Q6H PRN Administration Severe Pain (Scale 7, 8, 9,10) Aspirin 81 mg 01/13/23 21:00 01/15/23 19:51 Aspirin 81 Mg Ectab PO 02/12/23 20:59 81 mg PM SYMONE Administration Atorvastatin Calcium 40 mg 01/13/23 21:00 01/15/23 19:51 Atorvastatin 40 Mg Tab PO 02/12/23 20:59 40 mg HS SYMONE Administration Heparin Sodium (Porcine) 5,000 units 01/13/23 21:00 01/16/23 08:35 Heparin Sod 5,000 Unit/0.5 Ml Vial SQ 02/12/23 20:59 5,000 units Q12 SYMONE Administration Insulin Aspart 0 units 01/13/23 11:30 01/16/23 08:27 Insulin Aspart Per Unit Charge SC 02/12/23 11:29 5 units ACHS SYMONE Administration Insulin Glargine 8 units 01/13/23 10:45 01/16/23 08:27 Lantus Per Unit Charge SQ 02/12/23 10:44 8 units BID SYMONE Administration Ketorolac Tromethamine 10 mg 01/13/23 11:42 01/14/23 12:09 Ketorolac Tromethamine 15 Mg/Ml Vial IV 01/18/23 11:41 10 mg Q6H PRN Administration moderate to severe pain Lidocaine 1 patch 01/14/23 09:00 01/16/23 08:32 Lidocaine 5% 1 Patch TD 02/13/23 08:59 1 patch QAM SYMONE Administration Losartan Potassium 50 mg 01/14/23 21:00 01/15/23 19:51 Losartan Potassium 50 Mg Tab PO 02/13/23 20:59 50 mg PM SYMONE Administration Miscellaneous 1 each 01/13/23 21:00 01/15/23 19:52 Remove Lidoderm Patch N/A 02/12/23 20:59 Not Given DAILY@2100 SYMONE Oxycodone HCl 5 mg 01/13/23 11:42 01/16/23 08:31 Oxycodone Hcl Ir 5 Mg Tab (Immediate Release) PO 01/27/23 11:41 5 mg Q6H PRN Administration Moderate Pain (Scale 4, 5, 6) Prednisone 20 mg 01/14/23 12:15 01/16/23 08:34 Prednisone 20 Mg Tab PO 02/13/23 12:14 20 mg DAILY SYMONE Administration Senna/Docusate Sodium 1 tab 01/15/23 09:00 01/16/23 08:32 Docusate Sodium/Senna 50/8.6mg Tab PO 02/14/23 08:59 1 tab BID SYMONE Administration Past Medical History Medical History Osteoarthritis Diabetes mellitus, type 2 Hyperlipidemia Hypertension Past Family History Family History Father Colon cancer Past Surgical History Surgical History History of right cataract surgery 04/20/2019. 2mg versed. no issues. History of appendectomy History of total knee replacement BILAT History of colonoscopy History of tooth extraction History of tonsillectomy Social History Smoking Status: Never smoker Do You Dip or Chew Tobacco: No Hx Alcohol Use: No Hx Substance Use: Yes substance use type: marijuana and amphetamines Substance Use Type Other:: Alcohol Last Used Substance Other:: Last used in 1985. Physical Exam Vital Signs Last Vital Signs Temp 36.5 C 01/16/23 07:52 Pulse 67 01/16/23 07:52 Resp 16 01/16/23 07:52 BP 150/85 H 01/16/23 07:52 Pulse Ox 97 01/16/23 07:52 O2 Del Method Room Air 01/16/23 07:52 Testing Laboratory Results 01/16/23 06:45 01/16/23 06:45 Urine Color Yellow 01/13/23 18:00 Urine Appearance Cloudy (Clear) A 01/13/23 18:00 Urine pH 5.0 (4.5-7.5) 01/13/23 18:00 Ur Specific [place] 1.025 (1.000-1.030) 01/13/23 18:00 Urine Protein Trace (Negative) H 01/13/23 18:00 Urine Glucose (UA) Negative (Negative) 01/13/23 18:00 Urine Ketones Trace (Negative) H 01/13/23 18:00 Urine Nitrite Negative (Negative) 01/13/23 18:00 Ur Leukocyte Esterase Negative (Negative) 01/13/23 18:00 Urine WBC (Auto) 1-5 /hpf (0-5) 01/13/23 18:00 Urine RBC (Auto) >30 /hpf (0-4) H 01/13/23 18:00 U Hyaline Cast (Auto) 1-5 /lpf (0-5) 01/13/23 18:00 U Epithel Cells (Auto) 5-10 /lpf (0-5) H 01/13/23 18:00 Urine Bacteria (Auto) Negative (Negative) 01/13/23 18:00 01/16/23 01/15/23 07:35 21:01 POC Glucose 206 H 217 H Electrocardiogram Date: 01/15/23 Findings: + NSR @ (with PACs) Chest X-Ray Date: 01/15/23 Findings: + NAD
[2023-01-16] MEDS ORDERED: MAGNESIUM SULFATE / D5W 1 GM/100 ML BAG IV ONE (10:00)
--- NOTE | 2023-01-16 10:01 | Orthopedic Progress Note ---
Date of Service January 16, 2023 Assessment & Plan (1) Lumbar disc herniation with radiculopathy: Plan: At this time we will make him n.p.o. after midnight and plan for surgery tomorrow 1 OR time is available. Risk benefits pros cons alternatives were again outlined in detail and all questions were addressed. Admission and Anticipated Discharge Date Admission Date: January 15, 2023 Subjective Patient continues to have severe right leg pain and marked limitation with ambulation. Physical Exam Physical Exam: On exam he continues to weakness to the right lower extremity particular the quadriceps and dorsiflexion. Results & Data Vital Signs (Past 12 Hours) Vital Signs Temp Pulse Resp BP Pulse Ox O2 Del Method 01/16/23 07:52 36.5 C 67 16 150/85 H 97 Room Air 01/16/23 07:30 Room Air
--- NOTE | 2023-01-16 13:33 | Hospitalist Progress Note ---
Date of Service January 16, 2023 Assessment & Plan (1) Radicular pain of right lower extremity: (2) Right low back pain: Plan Patient came in with abrupt worsening of right lower back pain since yesterday, radiating down to RLE. He is being managed for the following: Lumbosacral radiculopathy Ambulatory dysfunction ? Lumbar foraminal stenosis Had Injection 4 weeks ago by per patient --Lumbar CT:No acute abnormalities in particular no evidence of fracture or other acute abnormality to explain leg pain. Degenerative changes are seen in the spine, if there is concern for neural foraminal stenosis, MRI can be performed. --MRI:1. Examination is severely degraded by extensive patient motion.2. Moderate to severe degenerative change of the lumbar spine as described.3. Moderate spinal canal stenosis is seen L3-L4 and L4-L5.4. Severe bilateral foraminal narrowing at L4-L5 with possible impingement of the exiting bilateral L4 nerve roots. Recommend correlation for symptoms. Fall precautions PT OT Consulted orthopedics - appreciate recs, plan for possible lumbar decompression fusion L4-L5 and possibly L5-S1 Preoperative chest x-ray reviewed: No acute abnormality EKG reveals a sinus rhythm with PACs at a rate of 67 bpm, T wave inversions in leads III and aVF, this was compared to EKG done in 04/2019 which is unchanged, patient had stress echo in 2019 which was negative for inducible ischemia and most recent echocardiogram was 10/2021 which revealed EF 60%, mild concentric LVH, grade 1 diastolic, mildly enlarging ascending thoracic aorta 3.8 cm pt active/avid golf, walks 9 holes, denies CP/SOB, able to perform > 4 Mets of activity Pain control increase bowel regimen to senna s one tab bid, prn miralax pt medical stable to undergo surgical intervention, will replace magnesium Hypomagnesemia replete repeat mag in a.m. Nonobstructive nephrolithiasis. Diverticulosis without diverticulitis. Incidental findings on CT Follow-up as outpatient Hyperlipidemia Continue atorvastatin Hypertension Continue losartan Bp on higher side 2/2 pain DM II Hold PO meds Continue insulin per protocol Monitor blood glucose levels DVT Px: D/C Heparin due to upcoming procedure SCDs Code Status Full code Dispo: plan for surgical intervention tomorrow, pt NPO after midnight Pt was seen and examined in collaboration with Dr. Caldwell, please see addendum Admission and Anticipated Discharge Date Admission Date: January 15, 2023 Supervising Physician Co-Signing Physician Notes Patient is seen and examined at bedside. Back pain is controlled. Reports chronic cough unchanged. No new complaints. Blood work reviewed. On exam patient is moderately built and nourished, no apparent distress, normocephalic atraumatic, EOMI, normal breath sounds, clear to auscultation, S1-S2, no murmur, no peripheral edema, abdomen soft, nontender, normal bowel sounds, alert, awake, oriented, grossly no focal deficits. Appreciate orthopedics input. Plan for lumbar decompression fusion surgery by Dr. Talamantes on 01/17/2023. Bowel regimen to prevent constipation. Fall precautions. Lumbosacral radiculopathy and Ambulatory dysfunction secondary to moderate spinal stenosis. Pain control. Bowel regimen to prevent constipation. Appreciate orthopedics input. Plan for lumbar decompression surgery tomorrow. I personally reviewed the record. Patient is interviewed and examined at bedside. Patient's care is coordinated with Esthela Cervantes PA-C. Please refer to the documentation above for details of patient's presentation and for discussion of other issues. Subjective Patient was seen and examined in room 315. Continues to complain right-sided back pain. He continues to have low back pain lower extremity numbness. Plan is to undergo surgical intervention tomorrow. Preoperative testing reviewed with patient at bedside. 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 Review of Systems Review of Systems: All systems reviewed & are unremarkable except as noted in HPI & below Physical Exam Physical Exam: Gen: WD/WN, NAD, A&O x3 HEENT: Normocephalic, atraumatic, conjunctivae moist, sclerae anicteric, mucous membranes moist. Lung: Clear to Auscultation bilaterally, no wheezes/rales/rhonchi Heart: Regular rate, regular rhythm, no murmurs, rubs, or gallops Abdomen: Soft, NT, ND +BS x 4 Extremities: No edema Skin: Warm, no rash, negative turgor. Results & Data Results & Data Vital Signs (Past 12 Hours) Vital Signs Temp Pulse Resp BP Pulse Ox O2 Del Method 01/16/23 07:52 36.5 C 67 16 150/85 H 97 Room Air 01/16/23 07:30 Room Air Laboratory Results Short CBC 01/16/23 Range/Units 06:45 WBC 8.25 (4.8-10.8) K/ul Hgb 13.7 L (14.0-18.0) g/dl Hct 39.1 L (42.0-52.0) % Plt Count 210 (130-400) K/uL BMP 01/16/23 06:45 Sodium 136 Potassium 4.1 Chloride 102 Carbon Dioxide 27 BUN 22 Creatinine 1.07 Glucose 165 H Calcium 9.2
[2023-01-16] MEDS ORDERED: LORazepam 1 MG in SYRINGE 0.5 ML IV PRN (14:11)
--- NOTE | 2023-01-16 15:54 | Electrocardiogram Report ---
Test Reason : Blood Pressure : / mmHG Vent. Rate : 067 BPM Atrial Rate : 067 BPM P-R Int : 188 ms QRS Dur : 098 ms QT Int : 424 ms P-R-T Axes : -12 018 005 degrees QTc Int : 448 ms Sinus rhythm with Premature atrial complexes Otherwise normal ECG When compared with ECG of 02-MAR-2011 10:30, Premature atrial complexes are now Present Confirmed by Brando Amador ([id number]) on 01/16/2023 3:53:52 PM Referred By: REFERRED SELF Confirmed By:Brando Amador
[2023-01-16] MEDS: ATORVASTATIN 40 MG TAB PO SCH (20:32)
[2023-01-16] MEDS: ASPIRIN 81 MG ECTAB PO SCH (20:33)
[2023-01-16] MEDS: MAGNESIUM CHLORIDE W/CALCIUM 64MG DELAYED REL TAB PO SCH (20:33)
[2023-01-16] MEDS: LOSARTAN POTASSIUM 50 MG TAB PO SCH (20:33)
[2023-01-16] MEDS: KETOROLAC TROMETHAMINE 15 MG/ML VIAL IV PRN (20:37)
[2023-01-17] MEDS: HYDROCODONE/ACETAMOPHEN 5/325MG TAB PO PRN (01:33)
[2023-01-17] MEDS ORDERED: Nursing to Pharmacy Communication SCH ×2 (03:45→11:00)
[2023-01-17] MEDS ORDERED: INSULIN ASPART PER UNIT CHARGE SC SCH (06:00)
[2023-01-17] MEDS ORDERED: CLINDAMYCIN/D5W 900 MG/50 ML BAG IV SCH (06:00)
[2023-01-17] MEDS ORDERED: PROPOFOL IV EMULSION 10 MG/ML 20 ML VIAL IV ONE ×2 (06:56→08:26)
[2023-01-17] MEDS ORDERED: fentaNYL citrate PF 100 MCG/2 ML VIAL ONE (06:56)
[2023-01-17] MEDS ORDERED: ONDANSETRON INJ 2 MG/ML 2 ML VIAL ONE (06:56)
[2023-01-17] MEDS ORDERED: ROCURONIUM BROMIDE 10 MG/ML 5 ML VIAL IV ONE ×2 (06:56→08:15)
[2023-01-17] MEDS ORDERED: DEXAMETHASONE SOD INJ 4 MG/ML VIAL ONE ×2 (06:57→06:58)
[2023-01-17] MEDS ORDERED: SUGAMMADEX SODIUM 200 MG/2 ML VIAL IV ONE (06:57)
[2023-01-17 06:58] LABS: Hematocrit (blood only) 42.2 % (42.0-52.0); Hemoglobin 14.6 g/dl (14.0-18.0); Mean Corpuscular Hemoglobin 30.2 pg (25.0-34.0); Mean Corpuscular Hgb Conc 34.6 g/dL (32.0-36.0); Mean Corpuscular Volume 87.4 fL (80.0-100.0); Mean Platelet Volume 10.3 fL (9.4-12.4); Platelet Count 242 K/uL (130-400); RDW Coefficient of Variation 13.8 % (11.5-14.5); RDW Standard Deviation 43.6 fL (36.4-46.3); Red Blood Count 4.83 M/uL (4.70-6.10); White Blood Count 8.62 K/ul (4.8-10.8)
[2023-01-17] MEDS: LACTATED RINGER'S 1,000 ML IV SCH (07:09)
[2023-01-17] MEDS ORDERED: ePHEDrine sulfate 50 MG/ML AMP IV PRN (07:34)
[2023-01-17] MEDS ORDERED: PROMETHAZINE HCL 12.5 MG in SODIUM CHLORIDE 0.9% 50 ML IV PRN ×2 (07:34→10:25)
[2023-01-17] MEDS ORDERED: fentaNYL citrate PF 100 MCG/2 ML VIAL IV PRN (07:34)
[2023-01-17] MEDS ORDERED: HYDROmorphone INJ 2 MG/ML SYR/VIAL IV PRN (07:34)
[2023-01-17] MEDS ORDERED: ONDANSETRON INJ 2 MG/ML 2 ML VIAL IV PRN ×2 (07:34→10:25)
[2023-01-17] MEDS ORDERED: ATROPINE SULFATE 0.1 MG/ML 10ML SYR IV PRN (07:34)
--- NOTE | 2023-01-17 07:38 | History & Physical Bridge Note ---
Date of Service January 17, 2023 History & Physical Bridge Note I have examined the patient, reviewed the History & Physical and in the interval since the performance of the History & Physical I have noted the following changes of clinical significance: no changes noted Lumbar decompression and fusion L4-L5 possible L5-S1
[2023-01-17 07:43] LABS: BUN Creatinine Ratio 25.2 (10-20); Calcium 9.5 mg/dl (8.6-10.3); Creatinine Clr Calc Pharmacy 63.4 ml/min; Est GFR (African American) 72.3 ml/min; Est GFR (Non-African American) 62.4 ml/min; Magnesium 1.8 mg/dl (1.7-2.4)
[2023-01-17] MEDS ORDERED: BUPIVACAINE/EPINEPHRINE 0.25% 1:200,000 30 ML VIAL ONE (07:44)
[2023-01-17] MEDS ORDERED: CLINDAMYCIN 900 MG/D5W 50 ML BAG IV ONE (07:48)
[2023-01-17] MEDS ORDERED: PHENYLEPHRINE 100MCG/ML 10ML SYR IV ONE (08:16)
[2023-01-17] MEDS ORDERED: GLYCOPYRROLATE 0.2 MG/ML VIAL ONE (08:17)
[2023-01-17] MEDS ORDERED: ePHEDrine sulfate 50 MG/5 ML SYR ONE (08:19)
[2023-01-17] MEDS ORDERED: FLOSEAL HEMOSTATIC MATRIX 10ML TOP ONE (08:26)
--- NOTE | 2023-01-17 09:29 | Operative Report ---
Post Operative Report Pre & Post Diagnosis Operation Date: 01/17/23 07:45 Preop diagnosis Lumbar spondylolisthesis L4-5 Herniated disc L4-5 Spinal stenosis L4-5 Postop Same I identified the patient and participated in the time-out.: Yes Procedure Operation Date: 01/17/23 07:45 #1 lumbar decompression bilaterally facetectomies and foraminotomies L3 L4-5. #2 posterior spinal fusion L4-5 per #3 placed posterior instrumentation L4-5 #4 interbody fusion L4-5 #5 placement Spira 15 x 26 mm at L4-5. #6 placement locally harvested morselized autograft and posterior gutters. #7 placement I factor interbody space and infuse collagen sponge, master graft in the posterior gutters. Surgeon Grady Talamantes DO Scenic Designer Patito Dawson Estimated Blood Loss 100 Findings Consistent with Post-Op Diagnosis Specimens None Indications This is a 59-year-old male who presents above-mentioned diagnosis. Patient has significant pain and ability to ambulate is here for urgent decompression fus ion. Description of Procedure Patient was met with identified informed consent obtained. Patient was then taken to the operative suite underwent ablation placed in a prone position the Jex table top Padilla frame. Operative prominences well-padded eyes inspected to ensure no external pressure placed upon the. This point the lumbar spine was prepped and draped in a sterile fashion. Sharp dissection with the assistance of Bovie cautery to form down to and exposing the lamina transverse processes of L4-5. From caudal cephalad fashion complete laminectomy L4 partial laminectomy L3 was performed including bilateral medial facetectomies and foraminotomies addressing all spinal stenosis as well as disc herniation in the foramen at L4-5 on the right. After complete decompression pedicle screws were placed at L4-5 bilaterally with assistance of fluoroscopy and the proper sized marin placed. By way the transforaminal approach on the right a complete discectomy of L4-L5 was performed endplates guided to subcortical bleeding bone and a 15 x 26 mm Spira cage with I factor tapped position. The rods were then compressed locked into final position bilaterally. The transverse processes of L4-5 burred to subcortical bleeding bone. Infuse collagen sponge, mass graft locally harvested morselized autograft was placed in the posterior gutters. 15 round CHRISTINA inserted. The incision was then closed with 1 Vicryl the fascia 2-0 Vicryl subcutaneously and 4 Monocryl for final skin closure. Steri-Strips sterile dressings placed. Patient waken taken to PACU in stable condition. Please note spinal cord monitoring was utilized at the procedure no changes noted. Lastly Patito Dawson was present at the entire surgeon while the patient positioning complex portion of the surgery and final skin closure. I attest to the content of the Intraoperative Record and any orders documented therein. Any exceptions are noted below.
[2023-01-17] MEDS ORDERED: diphenhydrAMINE Capsule 25 MG CAP PO PRN (10:25)
[2023-01-17] MEDS ORDERED: NALOXONE HCL 0.4 MG/1 ML VIAL/CARP IV PRN (10:25)
[2023-01-17] MEDS ORDERED: HYDROmorphone INJ 1 MG/ML SYRINGE IV PRN (10:25)
[2023-01-17] MEDS ORDERED: DO NOT ADMINISTER FLU VACCINE PRN (10:25)
[2023-01-17] MEDS ORDERED: SOD PHOSPHATE/SOD BIPHOSPHATE ENEMA 132 ML BTL PR PRN (10:25)
[2023-01-17] MEDS ORDERED: ONDANSETRON 4 MG OD TAB PO PRN (10:25)
[2023-01-17] MEDS ORDERED: traMADol HCL 50 MG TABLET PO PRN (10:25)
[2023-01-17] MEDS ORDERED: METOCLOPRAMIDE HCL INJ 5 MG/ML 2 ML VIAL IV PRN (10:25)
[2023-01-17] MEDS ORDERED: DO NOT ADMINISTER PNEUMOCOCCAL VACCINE PRN (10:25)
[2023-01-17] MEDS ORDERED: LORazepam 0.5 MG TAB PO PRN (10:25)
[2023-01-17] MEDS ORDERED: LORazepam 0.5 MG in SYRINGE 0.25 ML IV PRN (10:25)
[2023-01-17] MEDS ORDERED: HYDROmorphone INJ 0.5 MG/0.5 ML SYR IV PRN (10:25)
[2023-01-17] MEDS ORDERED: ACETAMINOPHEN 1,000 MG/100 ML VIAL IV PRN (10:25)
[2023-01-17] MEDS ORDERED: FAMOTIDINE 20 MG TAB PO PRN (10:25)
[2023-01-17] MEDS ORDERED: bisacodyL 10 MG SUPP PR PRN (10:25)
[2023-01-17] MEDS ORDERED: ALUMINUM/MAGNESIUM SUSP 30 ML UDC PO PRN (10:25)
[2023-01-17] MEDS ORDERED: MAGNESIUM HYDROXIDE SUSP 30 ML UDC PO PRN (10:25)
[2023-01-17] MEDS ORDERED: hydrOXYzine HCl 25 MG TAB PO PRN (10:25)
--- NOTE | 2023-01-17 10:36 | Fluoroscopy Report ---
INTRAOPERATIVE RADIOGRAPHS CLINICAL HISTORY: L4-L5 spinal fusion. Fluoro time: 17 seconds Ka,r: 13.50 mGy FINDINGS: 2 spot fluoroscopic views of the lumbar spine are presented. There has been discectomy at L 4-L5 with laminectomy and posterior fusion at this level. Interpedicular screws are in place. The ort hopedic hardware appears intact. IMPRESSION: Intraoperative images from lumbar spinal fusion surgery as above. Electronically signed by: Baron Farrell M.D. 01/17/2023 10:35 AM
[2023-01-17] MEDS: LIDOCAINE 5% 1 PATCH TD SCH (10:37)
[2023-01-17] MEDS: predniSONE 20 MG TAB PO SCH (10:38)
[2023-01-17] MEDS: LANTUS PER UNIT CHARGE SQ SCH ×2 (10:58→20:51)
[2023-01-17] MEDS: SODIUM CHLORIDE 0.9% 1,000 ML IV SCH ×2 (11:00→20:59)
[2023-01-17] MEDS: oxyCODONE HCL IR 5 MG TAB (IMMEDIATE RELEASE) PO PRN ×3 (11:11→20:56)
[2023-01-17] MEDS: MAGNESIUM CHLORIDE W/CALCIUM 64MG DELAYED REL TAB PO SCH ×2 (12:35→20:55)
[2023-01-17] MEDS: DOCUSATE SODIUM/SENNA 50/8.6MG TAB PO SCH ×2 (12:35→21:00)
[2023-01-17] MEDS: INSULIN ASPART PER UNIT CHARGE SC SCH ×4 (12:38→23:37)
--- NOTE | 2023-01-17 12:50 | Anesthesiology Progress Note ---
Date of Service January 17, 2023 Anesthesia Post Procedure Vital Signs Vital Signs: Temp Pulse Pulse Resp BP BP Pulse Ox 01/17/23 12:20 36.5 C 100 H 16 121/75 94 01/17/23 11:20 36.5 C 91 H 16 123/82 93 01/17/23 10:50 36.4 C L 82 16 130/81 95 01/17/23 10:20 36.4 C L 86 16 150/75 H 95 01/17/23 10:05 36.8 C 96 H 18 152/96 H 93 01/17/23 09:55 98 H 20 140/92 99 01/17/23 09:45 107 H 18 150/98 H 100 01/17/23 09:39 36.2 C L 113 H 14 157/98 H 100 01/17/23 07:01 36.7 C 68 20 147/82 H 93 01/16/23 20:35 36.5 C 67 16 155/92 H 95 01/16/23 15:46 36.6 C 67 16 142/79 H 96 O2 Del Method O2 Flow Rate 01/17/23 12:20 Room Air 01/17/23 11:20 Room Air 01/17/23 10:50 Room Air 01/17/23 10:20 Room Air 01/17/23 10:05 Room Air 01/17/23 09:55 Oxymask 6 01/17/23 09:45 Oxymask 6 01/17/23 09:39 Oxymask 6 01/17/23 07:01 Room Air 01/16/23 20:35 Room Air 01/16/23 15:46 Room Air Pain Intensity Lower Back: Pain Intensity: 8 Transfer of Care Handoff Completed per policy Notes Mental Status: alert / awake / arousable and participated in evaluation Patient Amnestic to Procedure: Yes Nausea / Vomiting: adequately controlled Pain: adequately controlled Airway Patency, RR, SpO2: stable & adequate BP & HR: stable & adequate Hydration State: stable & adequate Anesthetic Complications: no major complications apparent
--- NOTE | 2023-01-17 15:00 | Hospitalist Progress Note ---
Date of Service January 17, 2023 Assessment & Plan (1) Radicular pain of right lower extremity: (2) Right low back pain: Plan Patient came in with abrupt worsening of right lower back pain since yesterday, radiating down to RLE. He is being managed for the following: Lumbosacral radiculopathy Ambulatory dysfunction Had Injection [address] Ma per patient --Lumbar CT:No acute abnormalities in particular no evidence of fracture or other acute abnormality to explain leg pain. Degenerative changes are seen in the spine, if there is concern for neural foraminal stenosis, MRI can be performed. --MRI:1. Examination is severely degraded by extensive patient motion.2. Moderate to severe degenerative change of the lumbar spine as described.3. Moderate spinal canal stenosis is seen L3-L4 and L4-L5.4. Severe bilateral foraminal narrowing at L4-L5 with possible impingement of the exiting bilateral L4 nerve roots. Recommend correlation for symptoms. POD#0 s/p lumbar decompression bilaterally facetectomies and foraminotomies L3 L 4-5, posterior spinal fusion L4-[address] Talamantes Per ortho for pain control, wound care, anticoagulation and activities Monitor H&H (EBL 100ml, pre-op hgb 14.6), continue incentive spirometry, PT/OT when appropriate Hypomagnesemia replete repeat mag in a.m. Nonobstructive nephrolithiasis. Diverticulosis without diverticulitis. Incidental findings on CT Follow-up as outpatient Hyperlipidemia Continue atorvastatin Hypertension Continue losartan DM II Hold PO meds Continue insulin per protocol Monitor blood glucose levels DVT Px: SCDs Code Status: Full code Pt was seen and examined in collaboration with Dr. Caldwell, please see addendum Admission and Anticipated Discharge Date Admission Date: January 15, 2023 Supervising Physician Co-Signing Physician Notes Patient is seen and examined at bedside. Patient underwent lumbar surgery today. Patient doing well postoperatively. Offers no complaints. Denies any chest pain, dyspnea, dizziness, nausea. Family at bedside during encounter. On exam patient is moderately built and nourished, no apparent distress, normocephalic atraumatic, EOMI, normal breath sounds, clear to auscultation, S1- S2, no murmur, no peripheral edema, abdomen soft, nontender, normal bowel sounds, alert, awake, oriented, grossly no focal deficits. Lumbar spondylolisthesis L4-L5, herniated disc L4-L5, spinal stenosis L4-L5 S/P lumbar decompression, fusion surgery by Dr. Talamantes on 01/17/2023. Appreciate orthopedics input. Monitor for postop anemia. Fall precautions. Pain control. Bowel regimen to prevent constipation. PT OT evaluation as able. I personally reviewed the record. Patient is interviewed and examined at bedside. Patient's care is coordinated with Melida Mazariegos PA-C. Please refer to the documentation above for details of patient's presentation and for discussion of other issues. Subjective Patient was seen and examined in room 315 in follow up for R sided back pain. Examined after spinal surgery this morning. Awake and alert with R anterior thigh pain similar to previous. No lower extremity numbness or surgical site discomfort at this time. 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 No F/C, lightheadedness, CP, SOB, N/V, abd pain, dysuria, diarrhea or constipation. Review of Systems Review of Systems: At least ten systems reviewed and negative except as noted in the HPI. Physical Exam Physical Exam: Gen: WD/WN, NAD, laying in bed resting comfortably, A&Ox3 HEENT: Normocephalic, atraumatic, conjunctivae moist, sclerae anicteric, mucous membranes moist Lung: Clear to Auscultation bilaterally, no wheezes/rales/rhonchi Heart: Regular rate, regular rhythm, no murmurs, rubs, or gallops Abdomen: Soft, NT, ND +BS x 4 Extremities: Spinal dressing c/d/i, +CHRISTINA drain, no edema, no sensory or motor deficits noted in BLE Skin: Warm, no rash Results & Data Results & Data Vital Signs (Past 12 Hours) Vital Signs Temp Pulse Pulse Resp BP BP Pulse Ox 01/17/23 13:20 36.7 C 98 H 16 131/79 95 01/17/23 12:20 36.5 C 100 H 16 121/75 94 01/17/23 11:20 36.5 C 91 H 16 123/82 93 01/17/23 10:50 36.4 C L 82 16 130/81 95 01/17/23 10:20 36.4 C L 86 16 150/75 H 95 01/17/23 10:05 36.8 C 96 H 18 152/96 H 93 01/17/23 09:55 98 H 20 140/92 99 01/17/23 09:45 107 H 18 150/98 H 100 01/17/23 09:39 36.2 C L 113 H 14 157/98 H 100 01/17/23 07:01 36.7 C 68 20 147/82 H 93 O2 Del Method O2 Flow Rate 01/17/23 13:20 Room Air 01/17/23 12:20 Room Air 01/17/23 11:20 Room Air 01/17/23 10:50 Room Air 01/17/23 10:20 Room Air 01/17/23 10:05 Room Air 01/17/23 09:55 Oxymask 6 01/17/23 09:45 Oxymask 6 01/17/23 09:39 Oxymask 6 01/17/23 07:01 Room Air Laboratory Results Short CBC 01/17/23 Range/Units 06:05 WBC 8.62 (4.8-10.8) K/ul Hgb 14.6 (14.0-18.0) g/dl Hct 42.2 (42.0-52.0) % Plt Count 242 (130-400) K/uL BMP 01/17/23 06:05 Sodium 136 Potassium 4.0 Chloride 102 Carbon Dioxide 25 BUN 30 H Creatinine 1.19 Glucose 168 H Calcium 9.5 Diagnostic Findings Lumbar Spine CT 01/13/23 07:16 CT abd pelvis wo con, CT lumbar spine wo con CLINICAL HISTORY: R low back pain, into R gluteal area, down R leg TECHNIQUE: Helical axial images of the abdomen and pelvis were obtained. Automated dose lowering techniques and/or adjustment according to patient size were utilized for this exam. This exam was performed without intravenous contrast. COMPARISON: None available at the time of this dictation. FINDINGS: Lower chest: No acute abnormality. Atherosclerotic disease is seen in the coronary arteries. Liver: Unremarkable. No focal lesions are seen. Gallbladder and biliary tree: No calcified gallstones. Normal caliber wall. No intra- or extrahepatic biliary ductal dilation. Pancreas: Unremarkable, no focal lesions. Spleen: Unremarkable. Adrenals: Unremarkable. Kidneys and ureters: Nonobstructive nephrolithiasis is seen. Bladder: Unremarkable. Reproductive organs: Unremarkable. Bowel: Diverticulosis is seen without evidence of diverticulitis. There is a tiny hiatal hernia. Lymph nodes Retroperitoneal: Unremarkable. Pelvic: Unremarkable. Mesenteric: Unremarkable. Peritoneum: Normal. Vessels: Atherosclerotic calcifications are seen. Abdominal wall: Left fat containing inguinal hernia. Bones: Prominent degenerative changes are seen in the spine and left greater than right hip joints. Partial visualization of degenerative disc disease in the lower spine which may result in significant neural foraminal stenosis. IMPRESSION: 1. No acute abnormalities in particular no evidence of fracture or other acute abnormality to explain leg pain. Degenerative changes are seen in the spine, if there is concern for neural foraminal stenosis, MRI can be performed. 2. Nonobstructive nephrolithiasis. 3. Diverticulosis without diverticulitis. ACT 112: Negative or not required by law. Electronically signed by: Saúl Ag M.D. 01/13/2023 8:52 AM Abdomen/Pelvis CT 01/13/23 08:16 CT abd pelvis wo con, CT lumbar spine wo con CLINICAL HISTORY: R low back pain, into R gluteal area, down R leg TECHNIQUE: Helical axial images of the abdomen and pelvis were obtained. Automated dose lowering techniques and/or adjustment according to patient size were utilized for this exam. This exam was performed without intravenous contrast. COMPARISON: None available at the time of this dictation. FINDINGS: Lower chest: No acute abnormality. Atherosclerotic disease is seen in the coronary arteries. Liver: Unremarkable. No focal lesions are seen. Gallbladder and biliary tree: No calcified gallstones. Normal caliber wall. No intra- or extrahepatic biliary ductal dilation. Pancreas: Unremarkable, no focal lesions. Spleen: Unremarkable. Adrenals: Unremarkable. Kidneys and ureters: Nonobstructive nephrolithiasis is seen. Bladder: Unremarkable. Reproductive organs: Unremarkable. Bowel: Diverticulosis is seen without evidence of diverticulitis. There is a tiny hiatal hernia. Lymph nodes Retroperitoneal: Unremarkable. Pelvic: Unremarkable. Mesenteric: Unremarkable. Peritoneum: Normal. Vessels: Atherosclerotic calcifications are seen. Abdominal wall: Left fat containing inguinal hernia. Bones: Prominent degenerative changes are seen in the spine and left greater than right hip joints. Partial visualization of degenerative disc disease in the lower spine which may result in significant neural foraminal stenosis. IMPRESSION: 1. No acute abnormalities in particular no evidence of fracture or other acute abnormality to explain leg pain. Degenerative changes are seen in the spine, if there is concern for neural foraminal stenosis, MRI can be performed. 2. Nonobstructive nephrolithiasis. 3. Diverticulosis without diverticulitis. ACT 112: Negative or not required by law. Electronically signed by: Saúl Ag M.D. 01/13/2023 8:52 AM Lumbar Spine MRI 01/14/23 09:38 Exam(s): MRI L SPINE Without Contrast EXAM: MR Lumbar Spine Without Intravenous Contrast CLINICAL HISTORY: Reason for exam: back and right leg pain. TECHNIQUE: Magnetic resonance images of the lumbar spine without intravenous contrast in multiple planes. COMPARISON: CT lumbar spine 01/13/2023. FINDINGS: Vertebrae: Modic degenerative endplate changes are seen in the lumbar spine. Grade 1 anterolisthesis of L4 on L5. Chronic compression deformity of the T11 and T12 vertebral bodies. Spinal cord: Unremarkable. No discrete signal abnormality is seen in the distal spinal cord or the descending nerve roots on motion degraded examination. Soft tissues: Unremarkable. DISCS/SPINAL CANAL/NEURAL FORAMINA: T12-L1: Disc bulge with endplate osteophytes and bilateral facet arthrosis. No significant spinal canal stenosis or foraminal narrowing. L1-L2: Disc bulge with endplate osteophytes and bilateral facet arthrosis. No significant spinal canal stenosis or foraminal narrowing. L2-L3: Disc bulge with endplate osteophytes and bilateral facet arthrosis. Mild spinal canal stenosis. Mild bilateral foraminal narrowing. L3-L4: Disc bulge with endplate osteophytes and bilateral facet arthrosis. Moderate spinal canal stenosis. Moderate right and mild-to- moderate left foraminal narrowing. L4-L5: Disc bulge with endplate osteophytes and severe bilateral facet arthrosis. Bilateral facet joint effusions as well as synovial cysts. Moderate spinal canal stenosis. Severe bilateral foraminal narrowing with possible impingement of exiting bilateral L4 nerve roots. L5-S1: Disc bulge with endplate osteophytes and severe bilateral facet arthrosis. Bilateral facet joint effusions. No significant spinal canal stenosis. Moderate to severe bilateral foraminal narrowing. Other findings: Examination is severely degraded by extensive patient motion. IMPRESSION: 1. Examination is severely degraded by extensive patient motion. 2. Moderate to severe degenerative change of the lumbar spine as described. 3. Moderate spinal canal stenosis is seen L3-L4 and L4-L5. 4. Severe bilateral foraminal narrowing at L4-L5 with possible impingement of the exiting bilateral L4 nerve roots. Recommend correlation for symptoms. Electronically signed by: Arya Islas MD 01/14/23 20:48 PM Chest X-Ray 01/15/23 12:21 XR chest 1V portable HISTORY: 67 years-old Male pre op preoperative exam COMPARISON: None TECHNIQUE: AP view of the chest FINDINGS: Cardiomediastinal and hilar silhouettes are within normal limits. No pneumothorax, pleural effusion or airspace consolidation. Distal descending thoracic aortic tortuosity. Bones appear grossly intact. IMPRESSION: No acute process. ACT 112: Negative or not required by law. The above report was generated using voice recognition software. It may contain grammatical, syntax or spelling errors. Electronically signed by: Selwyn Shane M.D. 01/15/2023 12:40 PM Lumbar Spine X-Ray 01/17/23 07:45 INTRAOPERATIVE RADIOGRAPHS CLINICAL HISTORY: L4-L5 spinal fusion. Fluoro time: 17 seconds Ka,r: 13.50 mGy FINDINGS: 2 spot fluoroscopic views of the lumbar spine are presented. There has been discectomy at L4-L5 with laminectomy and posterior fusion at this level. Interpedicular screws are in place. The orthopedic hardware appears intact. IMPRESSION: Intraoperative images from lumbar spinal fusion surgery as above. Electronically signed by: Baron Farrell M.D. 01/17/2023 10:35 AM
[2023-01-17] MEDS: CLINDAMYCIN/D5W 600 MG/50 ML BAG IV SCH ×2 (16:49→23:38)
[2023-01-17] MEDS: ACETAMINOPHEN 500 MG TAB PO PRN (20:16)
[2023-01-17] MEDS: LOSARTAN POTASSIUM 50 MG TAB PO SCH (20:56)
[2023-01-17] MEDS: ASPIRIN 81 MG ECTAB PO SCH (20:56)
[2023-01-17] MEDS: ATORVASTATIN 40 MG TAB PO SCH (20:56)
[2023-01-17] MEDS ORDERED: DOCUSATE SODIUM/SENNA 50/8.6MG TAB PO SCH (21:00)
[2023-01-17] MEDS ORDERED: PHARMACY GLYCEMIC MGMT CONSULT PRN (21:00)
--- NOTE | 2023-01-17 21:28 | Pharmacy Report ---
Pharmacy Glycemic Short Note 2 - Date of Service January 17, 2023 - Glycemic Short BSG Results (Last 24 hours): 01/17/23 01/17/23 01/17/23 05:49 06:05 07:17 Glucose 168 H POC Glucose 163 H 181 H 01/17/23 01/17/23 01/17/23 09:44 11:55 16:46 Glucose POC Glucose 247 H 254 H 302 H* 01/17/23 01/17/23 16:48 20:18 Glucose POC Glucose 296 H 281 H OUTPATIENT ANTIDIABETIC REGIMEN: * glipizide, metformin, ozempic ASSESSMENT: * 67 year old now s/p surgery, POD 0 - pharmacy consulted for glycemic control postop. BSGs in upper 200s. Plan to tighten to stress of 3 novolog and add on overnight checks. Patient did receive steroids intraoperatively, therefore will give an additional 10 units of basal x 1 now PLAN FOR INPATIENT GLYCEMIC CONTROL: * Hold outpatient oral diabetes medications * Basal insulin * Lantus 10 units x 1 now (in addition to 8 units at hs) * Will reassess basal tomorrow AM as steroids ordered ongoing * Bolus insulin * NovoLog per scale ACHS or Q6hrs while NPO * Goal Range: Low 120 mg/dL - High 160 mg/dL * Correction Factor: 20 mg/dL/unit * Nutritional / Prandial insulin per carb ratio of 1 unit per 7 grams CHO consumed
[2023-01-17] MEDS ORDERED: LANTUS PER UNIT CHARGE SQ ONE (21:30)
[2023-01-18] MEDS: oxyCODONE HCL IR 5 MG TAB (IMMEDIATE RELEASE) PO PRN ×3 (02:52→19:15)
[2023-01-18] MEDS: INSULIN ASPART PER UNIT CHARGE SC SCH ×5 (03:21→21:42)
[2023-01-18] MEDS: POLYETHYLENE (MIRALAX) 17 GM PACK PO SCH ×3 (05:30→17:37)
[2023-01-18 06:42] LABS: Basophils # (auto) 0.01 K/uL (0.00-0.20); Basophils % (auto) 0.1 %; Eosinophils # (auto) 0.04 K/uL (0.00-0.50); Eosinophils % (auto) 0.4 %; Hematocrit (blood only) 35.6 % (42.0-52.0); Immature Granulocytes # (auto) 0.04 K/uL (0.01-0.20); Immature Granulocytes % (auto) 0.4 %; Lymphocytes # (auto) 1.09 K/uL (1.20-3.40); Lymphocytes % (auto) 11.6 %; Mean Corpuscular Hemoglobin 29.3 pg (25.0-34.0); Mean Corpuscular Hgb Conc 33.7 g/dL (32.0-36.0); Mean Platelet Volume 10.1 fL (9.4-12.4); Monocytes # (auto) 1.15 K/uL (0.11-0.59); Monocytes % (auto) 12.3 %; Neutrophils # (auto) 7.03 K/uL (1.40-6.50); Neutrophils % (auto) 75.2 %; Platelet Count 196 K/uL (130-400); RDW Coefficient of Variation 14.1 % (11.5-14.5); RDW Standard Deviation 44.7 fL (36.4-46.3); Red Blood Count 4.09 M/uL (4.70-6.10); White Blood Count 9.36 K/ul (4.8-10.8)
[2023-01-18 06:58] LABS: BUN Creatinine Ratio 21.4 (10-20); Calcium 8.9 mg/dl (8.6-10.3); Creatinine Clr Calc Pharmacy 73.2 ml/min; Est GFR (African American) 86.1 ml/min; Est GFR (Non-African American) 74.3 ml/min; Magnesium 1.6 mg/dl (1.7-2.4); Potassium 4.1 mmol/L (3.5-5.1)
[2023-01-18] MEDS: LACTATED RINGER'S 1,000 ML IV SCH (07:07)
[2023-01-18 08:11] LABS: Estimated Average Glucose 143 mg/dl; Hemoglobin A1C 6.6 % (4.5-5.6)
[2023-01-18] MEDS ORDERED: SODIUM CHLORIDE 0.9% 500 ML IV ONE (08:17)
[2023-01-18] MEDS: ACETAMINOPHEN 500 MG TAB PO PRN (08:24)
[2023-01-18] MEDS: dexAMETHasone 6 MG in SYRINGE 0 ML IV SCH (08:46)
[2023-01-18] MEDS: MAGNESIUM CHLORIDE W/CALCIUM 64MG DELAYED REL TAB PO SCH ×2 (08:46→20:00)
[2023-01-18] MEDS: DOCUSATE SODIUM/SENNA 50/8.6MG TAB PO SCH ×2 (08:47→19:59)
[2023-01-18] MEDS: LIDOCAINE 5% 1 PATCH TD SCH (08:47)
[2023-01-18] MEDS: LANTUS PER UNIT CHARGE SC SCH (08:48)
[2023-01-18] MEDS: SODIUM CHLORIDE 0.9% 1,000 ML IV SCH (09:06)
--- NOTE | 2023-01-18 09:20 | Pharmacy Report ---
Pharmacy Glycemic Short Note 2 - Date of Service January 18, 2023 - Glycemic Short BSG Results (Last 24 hours): 01/17/23 01/17/23 01/17/23 09:44 11:55 16:46 Glucose POC Glucose 247 H 254 H 302 H* 01/17/23 01/17/23 01/17/23 16:48 20:18 23:20 Glucose POC Glucose 296 H 281 H 230 H 01/18/23 01/18/23 01/18/23 03:21 06:07 07:37 Glucose 161 H POC Glucose 139 H 177 H OUTPATIENT ANTIDIABETIC REGIMEN: * glipizide, metformin, ozempic HbA1c: 6.6 (01/18/23) ASSESSMENT: 01/18/23: * POD #1 s/p lumbar decompression/fusion * BSGs elevated postoperatively, very likely due to stress of surgery and IV steroids * Ordered dexamethasone 6 mg IV daily x 3 days * Will give ~0.4 unit/kg basal today with IV dexamethasone and continue aggressive weight-based Novolog parameters 01/17/23: * 67 year old now s/p surgery, POD 0 - pharmacy consulted for glycemic control postop. BSGs in upper 200s. Plan to tighten to stress of 3 novolog and add on overnight checks. Patient did receive steroids intraoperatively, therefore will give an additional 10 units of basal x 1 now PLAN FOR INPATIENT GLYCEMIC CONTROL: * Hold outpatient oral diabetes medications * Basal insulin * Lantus 30 units SC daily w/ dexamethasone (~0.4 unit/kg) * Bolus insulin * NovoLog per scale ACHS or Q6hrs while NPO * Goal Range: Low 110 mg/dL - High 140 mg/dL * Correction Factor: 20 mg/dL/unit * Nutritional / Prandial insulin per carb ratio of 1 unit per 5 grams CHO consumed
--- OUTSIDE RECORDS SUMMARY | 2023-01-18 12:27 | External Medical Summary | Summary of Care ---
Author Name Unknown Organization [facility] Address [address] [facility] [place] [address] Phone [phone] Care Team Providers Care French Instructor Name Role Phone Preeti Landin MD Primary Care Provider [phone] Encounter Details Date Type Department Care Team Description 08/13/2022 Telephone Urology Yanely Guadalupe [address] [place] [id number] Ryan Faulkner Jr., MD [address] [place] [id number] Allergies Active Allergy Reactions Severity Noted Date Comments Bee Venom 04/28/2019 Empagliflozin 01/24/2022 Inc Anion gap Lisinopril Cough 11/19/2018 Imp off med Penicillin G 06/30/1997 hives documented as of this encounter (statuses as of 08/13/2022) Medications Medication Sig Dispensed Refills Start Date End Date Status EPINEPHrine, anaphylaxis, (EPI-PEN) 0.3 MG/0.3ML SOAJ injectionIndications :Bee sting allergy For a severe reaction: Place orange end against the outer thigh, press firmly, hold in place for 10 seconds and go to the Emergency room. 2 Device 3 10/01/2017 Active aspirin enteric coated 81 MG TBECIndications:Type 2 diabetes mellitus with hemoglobin A1c goal of less than 7.0% (HCC) Take 1 Tab by mouth daily. 100 Tab 3 01/16/2018 Active ONETOUCH ULTRASOFT LANCETS MISC Use 3 times daily as directed -E11.9 100 Each 11 02/18/2019 Active Lancet Devices (ONETOUCH DELICA LANCING DEV) MISC Use 3 times daily as directed -E11.9 100 Each 11 02/18/2019 Active OneTouch Ultra Blue In Vitro Strip (Glucose Blood)Indications:Ty pe 2 diabetes mellitus with hemoglobin A1c goal of less than 7.0% (HCC) Patient tests 2 times a day. Dx E11.9 100 Strip 5 04/01/2020 Active Glucose Blood In Vitro Strip Use 3 times daily as directed -E11.9 100 Strip 11 04/01/2020 Active Ozempic (1 MG/DOSE) 4 MG/3ML Subcutaneous Solution Pen-injector (Semaglutide (1 MG/DOSE))Indications :Type 2 diabetes mellitus with hemoglobin A1c goal of less than 7.5% (HCC) INJECT UNDER THE SKIN 1 MG ONCE A WEEK . DX:E11.9 9 mL 3 01/10/2022 Active Ibuprofen 200 MG Oral Tablet (Motrin IB)Indications:Repet itive strain injury of left shoulder, initial encounter,Biceps tendinitis of left shoulder Take 2 Tablets (400 mg) by mouth 2 times a day as needed for Pain, Moderate. 50 Tablet 1 01/24/2022 Active Tadalafil 5 MG Oral Tablet (Cialis) Take 1 Tablet (5 mg) by mouth in the morning. 30 Tablet 5 02/07/2022 Active Gabapentin 100 MG Oral Capsule (Neurontin)Indicatio ns:Type 2 diabetes mellitus with hemoglobin A1c goal of less than 7.5% (HCC),Numbness and tingling of foot TAKE 1 CAPSULE BY MOUTH AT 8 PM. START 05/15/21 30 Capsule 2 05/17/2022 Active glipiZIDE ER 5 MG Oral Tablet Extended Release 24 Hour (glipiZIDE XL)Indications:Type 2 diabetes mellitus with hemoglobin A1c goal of less than 7.5% (HCC) Take 1 Tablet by mouth daily before dinner. 30 minutes before a meal. With 10 mg tab -dec dose from 07/13/2022 90 Tablet 1 07/12/2022 Active glipiZIDE ER 10 MG Oral Tablet Extended Release 24 Hour (glipiZIDE XL)Indications:Type 2 diabetes mellitus with hemoglobin A1c goal of less than 7.5% (HCC) Take 1 Tablet by mouth daily before dinner. 30 minutes before a meal. with 5mg tab -dec dose from 07/13/2022 90 Tablet 1 07/12/2022 Active metFORMIN HCl ER 500 MG Oral Tablet Extended Release 24 Hour (Glucophage XR)Indications:Type 2 diabetes mellitus with hemoglobin A1c goal of less than 7.5% (HCC) TAKE 4 TABLETS BY MOUTH EVERY DAY WITH DINNER 360 Tablet 3 07/30/2022 Active Losartan Potassium 50 MG Oral Tablet (Cozaar)Indications: Type 2 diabetes mellitus with hemoglobin A1c goal of less than 7.5% (HCC) Take 0.5 Tablets by mouth every evening. 45 Tablet 1 08/07/2022 Active Atorvastatin Calcium 40 MG Oral Tablet (Lipitor)Indications :Dyslipidemia, goal LDL below 100 Take 1 Tablet by mouth every evening. 90 Tablet 1 08/07/2022 Active documented as of this encounter (statuses as of 08/13/2022) Active Problems Problem Noted Date Ascending aorta dilation 01/11/2021 Abnormal EKG 05/15/2019 Overview: 05/28-Preop>DSE neg--The proximal ascending aorta was borderline enlarged with a diameter of 3.9 centimeters--card rec f/u echo q 1-2 yrs++ Status post bilateral knee replacements 01/16/2018 Family history of colon cancer in father 01/16/2018 Post-traumatic osteoarthritis of left el bow 10/22/2016 Erectile dysfunction due to arterial ins ufficiency 04/23/2016 Other allergic rhinitis 03/17/2015 HTN, goal below 140/80 04/29/2014 Vitamin D insufficiency 02/28/2014 Type 2 diabetes mellitus with hemoglobin A1c goal of less than 7.5% 11/07/2012 Overview: ICD-10 update of inactive term Dyslipidemia, goal LDL below 100 013 Generalized osteoarthritis 11/07/2012 BPH (benign prostatic hyperplasia) Tubular adenoma of colon Overview: 11/27-moderate perianal erythema,sig tics, 1 mm polyp transverse colon removed, repeat in 5 years documented as of this encounter (statuses as of 08/13/2022) Resolved Problems Problem Noted Date Resolved Date Scrotal hematoma 01/26/2016 04/23/2016 Excessive daytime sleepiness 10/17/2015 HTN, goal below 140/80 11/19/2012 5 Hydrocele 11/07/2012 01/11/2021 Corns and callosities 11/07/2012 01/16/2018 Allergic rhinitis 11/07/2012 01/16/2018 Dyslipidemia, goal to be determined 02/17/2009 11/07/2012 Overview: Per Lipid Taxonomy. Mixed dyslipidemia 01/19/2002 02/17/2009 Overview: Per Lipid Taxonomy. Sprain of knee and leg 01/25/1998 3 documented as of this encounter (statuses as of 08/13/2022) Immunizations Name Administration Dates Next Due DTaP - Dipth/Tet/Acell Pertussis 08/08/2010,06/10 Hepatitis B, 20+ yrs 08/07/2022,02/28/2022,01/24 Pneumococcal Conjugate Vacc, 13 Valent (Prevnar) 03/24/2020 Pneumococcal Polysaccharide PPV23 (Pneumovax) 05/15/2021,02/06/2013 Seasonal Influenza, Quadriva lent Hd (Fluzone Hd) 11/27/2021,12/14/2020 Seasonal Influenza, Quadriva lent, No Preserve, 6 Mons & Above, IM 11/30/2019,11/19/2018,01/08/2018 Seasonal Influenza, Quadriva lent, No Preserve, IM 12/10/2017 Seasonal Influenza, Split, I IV3, With Preserve, Inj 01/07/2017,12/10/2015,01/07/2015,02/11,12/09/2012 TDAP (age 10 and older)(Boostrix) 09/14/2014 Varicella Zoster Vaccine (Adult) 04/23/2016 Zoster Vaccine Recombinant (Shingrix) 02/18/2019 ,11/19/2018 documented as of this encounter Social History Tobacco Use Types Packs/Day Years Used Date Smoking Tobacco: Never Smokeless Tobacco: Former Snuff Alcohol Use Standard Drinks/Week Comments Not Currently 66.7 (1 standard dri nk = 0.6 oz pure alcohol) 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 Food Insecurity Answer Date Recorded Within the past 12 months, y ou worried that your food would run out before you got money to buy more. Never true 02/18/2019 Within the past 12 months, t he food you bought just didn't last and you didn't have money to get more. Never true 02/18/2019 Sex Assigned at Date Recorded Male 11/19/2018 4:37 PM E DT Job Start Date Occupation Industry Not on file Not on file Not on file documented as of this encounter Miscellaneous Notes * Telephone Encounter - Alejandra Humphrey LPN - 08/13/2022 9:26 AM EDT [facility] will schedule appt with Dr Faulkner at [facility] 08/20 or 08/27 documented in this encounter Plan of Treatment Upcoming Encounters Date Type Specialty Care Team Description 08/24/2022 Office Visit Orthopedics Rigoberto Espinosa MD [address] [place] [id number] 02/07/2023 Office Visit Internal Medicine [facility]i Landin [facility] [address] [facility] [id number] Scheduled Procedures Name Priority Associated Diagnoses Date/Ti me COLONOSCOPY FLEXIBLE PROXIMA L DIAGNOSTIC Recall History of colonic polyps Health Maintenance Due Date Last Done Comments COVID-19 Vaccine (#1) 1955 Depression Screening, Annual for Pts 12 and Over 02/19/2020 02/18/2019 DIABETES-EYE EXAM 06/02/2022 06/02/2021, , 11/04/2018, Additional history exists HbA1c 01/05/2023 07/06/2022, 10/2021, 10/19/2021, Additional history exists Albumin/Creatinine Ratio 01/16/2023 022, 01/04/2021, 10/28/2019, Additional history exists GFR 07/07/2023 07/06/2022, 10/2021, 10/31/2021, Additional history exists Yearly B-12 07/07/2023 07/06/2022, 05/0 08/2021, 01/04/2021, Additional history exists DIABETES-FOOT EXAM 08/08/2023 08/07/2022, 0 07/17/2021, 09/03/2020, Additional history exists COLONOSCOPY-EVERY 5 YRS AGES 18-100 11/08/2023 11/07/2018, 11/07/2018, 10/28/2015 DTaP,Tdap,and Td Vaccines (4 - Td or Tdap) 09/14/2024 09/14/2014, 08/08/2010, 07/05/2009 Lipid Panel 07/07/2027 07/06/2022, 10/2021, 01/16/2022, Additional history exists Zoster Vaccines Completed 02/18/2019, 11/09, 04/23/2016 Pneumococcal Vaccine: 65+ Years Completed 05/15/2021, 03/24/2020, 02/06/2013 Influenza Vaccine (FLU shot) Completed , 12/14/2020, 11/30/2019, Additional history exists Hepatitis B Completed 08/07/2022, 02/09, 01/24/2022 GARDASIL-HPV IMMUNIZATION SERIES Aged Out No longer eligible based on patient's age to complete this topic MENINGOCOCCAL (MENACTRA/MENVEO) Aged Out No longer eligible based on patient's age to complete this topic documented as of this encounter Medical Devices Not on filedocumented as of this encounter Advance Directives Latest Code Status on File Code Status Date Activated Date Inactivated Comments Full Code 05/20/2019 1:54 PM 05/20/2019 7:33 PM This order reflects the patients wishes and were consensually agreed upon. Code Status History Code Status Date Activated Date Inactivated Comments Full Code 03/02/2016 7:29 AM 03/02/2016 2:45 PM Thi s order reflects the patients wishes and were consensually agreed upon. Full Code 01/26/2016 7:17 AM 01/26/2016 2:52 PM Thi s order reflects the patients wishes and were consensually agreed upon. Full Code 12/23/2015 6:37 AM 12/23/2015 2:41 PM Thi s order reflects the patients wishes and were consensually agreed upon. Care Teams French Instructor Relationship Specialty Start Date End Date Preeti Landin MD [address] [place] [address] PCP - General Internal Medicine 01/11/21 documented as of this encounter
--- OUTSIDE RECORDS SUMMARY | 2023-01-18 12:27 | External Medical Summary | Summary of Care ---
Author Name Unknown Organization [facility] Address [address] [place] [address] Phone [phone] Care Team Providers Care Clerical Support Name Role Phone Preeti Landin MD Primary Care Provider [phone] Reason for Visit * Reason Comments eRx-Medication Refill Encounter Details Date Type Department Care Team Description [facility] [address] [place] [address] Preeti Landin MD [address] [place] [address] Type 2 diabetes mellitus with hemoglobin A1c goal of less than 7.5% ([facility]) Allergies Active Allergy Reactions Severity Noted Date Comments Bee Venom 04/28/2019 Empagliflozin 01/24/2022 Inc Anion gap Lisinopril Cough 11/19/2018 Imp off med Penicillin G 06/30/1997 hives documented as of this encounter (statuses as of 12/26/2022) Medications Medication Sig Dispensed Refills Start Date End Date Status EPINEPHrine, anaphylaxis, (EPI-PEN) 0.3 MG/0.3ML SOAJ injectionIndicatio ns:Bee sting allergy For a severe reaction: Place orange end against the outer thigh, press firmly, hold in place for 10 seconds and go to the Emergency room. 2 Device 3 10/01/2017 Active aspirin enteric coated 81 MG TBECIndications:Ty pe 2 diabetes mellitus with hemoglobin A1c [...] OneTouch Ultra Blue In Vitro Strip (Glucose Blood)Indications: Type 2 diabetes mellitus with hemoglobin A1c goal of less than 7.0% (HCC) Patient tests 2 times a day. Dx E11.9 100 Strip 5 04/01/2020 Active Glucose Blood In Vitro Strip Use 3 times daily as directed -E11.9 100 Strip 11 04/01/2020 Active Ibuprofen 200 MG Oral Tablet (Motrin IB)Indications:Rep etitive strain injury of left shoulder, initial encounter,Biceps tendinitis of left shoulder Take 2 Tablets (400 mg) by mouth 2 times a day as needed for Pain, Moderate. 50 Tablet 1 01/24/2022 Active Tadalafil 5 MG Oral Tablet (Cialis) Take 1 Tablet (5 mg) by mouth in the morning. 30 Tablet 5 02/07/2022 Active Gabapentin 100 MG Oral Capsule (Neurontin)Indicat ions:Type 2 diabetes mellitus with hemoglobin A1c goal of less than 7.5% (HCC),Numbness and tingling of foot TAKE 1 CAPSULE BY MOUTH AT 8 PM. START 05/15/21 30 Capsule 2 05/17/2022 Active glipiZIDE ER 5 MG Oral Tablet Extended Release 24 Hour (glipiZIDE XL)Indications:Typ e 2 diabetes mellitus with hemoglobin A1c goal of less than 7.5% (HCC) Take 1 Tablet by mouth daily before dinner. 30 minutes before a meal. With 10 mg tab -dec dose from 07/13/2022 90 Tablet 1 07/12/2022 Active glipiZIDE ER 10 MG Oral Tablet Extended Release 24 Hour (glipiZIDE XL)Indications:Typ e 2 diabetes mellitus with hemoglobin A1c goal of less than 7.5% (HCC) Take 1 Tablet by mouth daily before dinner. 30 minutes before a meal. with 5mg tab -dec dose from 07/13/2022 90 Tablet 1 07/12/2022 Active metFORMIN HCl ER 500 MG Oral Tablet Extended Release 24 Hour (Glucophage XR)Indications:Typ e 2 diabetes mellitus with hemoglobin A1c goal of less than 7.5% (HCC) TAKE 4 TABLETS BY MOUTH EVERY DAY WITH DINNER 360 Tablet 3 07/30/2022 Active Losartan Potassium 50 MG Oral Tablet (Cozaar)Indication s:Type 2 diabetes mellitus with hemoglobin A1c goal of less than 7.5% (HCC) Take 0.5 Tablets by mouth every evening. 45 Tablet 1 08/07/2022 Active Atorvastatin Calcium 40 MG Oral Tablet (Lipitor)Indicatio ns:Dyslipidemia, goal LDL below 100 Take 1 Tablet by mouth every evening. 90 Tablet 1 08/07/2022 Active Ozempic (1 MG/DOSE) 4 MG/3ML Subcutaneous Solution Pen-injector (Semaglutide (1 MG/DOSE))Indicatio ns:Type 2 diabetes mellitus with hemoglobin A1c goal of less than 7.5% (HCC) INJECT UNDER THE SKIN 1 MG ONCE A WEEK . DX:E11.9 9 mL 3 12/26/2022 Active Ozempic (1 MG/DOSE) 4 MG/3ML Subcutaneous Solution Pen-injector (Semaglutide (1 MG/DOSE))Indicatio ns:Type 2 diabetes mellitus with hemoglobin A1c goal of less than 7.5% (HCC) INJECT UNDER THE SKIN 1 MG ONCE A WEEK . DX:E11.9 9 mL 3 01/10/2022 3 Discontinued documented as of this encounter (statuses as of 12/26/2022) Active Problems Problem Noted Date Ascending aorta [...] as of this encounter (statuses as of 12/26/2022) Resolved Problems Problem Noted Date Resolved Date [...] as of this encounter (statuses as of 12/26/2022) Immunizations Name Administration Dates Next Due DTaP Dipth/Tet/Acell Pertussis (Infanrix), Peds 08/08/2010,07/05/2009 Hepatitis B, 20+ yrs 08/07/2022,02/28/2022,01/24 Pneumococcal Conjugate Vacc, 13 Valent (Prevnar) 03/24/2020 Pneumococcal Polysaccharide PPV23 (Pneumovax) 05/15/2021,02/06/2013 SEASONAL INFLUENZA, PF, 6 M & Above, IM , (FLULAVAL or FLUZONE) 11/30/2019,11/19/2018,01/08/2018 Seasonal Influenza, Quadriva lent Hd (Fluzone Hd) 11/27/2021,12/14/2020 Seasonal Influenza, Quadriva lent, No Preserve, IM [...] encounter Miscellaneous Notes * Telephone Encounter - Preeti Landin MD - 12/26/2022 11:35 AM EDTSigned Prescriptions: Disp Refills Ozempic (1 MG/DOSE) 4 MG/3ML Subcutaneous *9 mL 3 Sig: INJECT UNDER THE SKIN 1 MG ONCE A WEEK . DX:E11.9 Authorizing Provider: PREETI LANDIN * Telephone Encounter - Taniya Potts LPN - 12/26/2022 7:04 AM EDTPending Prescriptions: Disp Refills Ozempic (1 MG/DOSE) 4 MG/3ML Subcutaneous *9 mL 3 Sig: INJECT UNDER THE SKIN 1 MG ONCE A WEEK . DX:E11.9 * Telephone Encounter - Taniya Potts LPN - 12/26/2022 7:04 AM EDT This medication has been pended for renewal in accordance with our office medication renewal policy. Pending Prescriptions: Disp Refills Ozempic (1 MG/DOSE) 4 MG/3ML Subcutaneous*9 mL 3 Sig: INJECT UNDER THE SKIN 1 MG ONCE A WEEK . DX:E11.9 Visit date not found (in office), Visit date not found (telemedicine) Visit date not found If no future appointments scheduled, and last appointment is greater than a year ago, please schedule patient for a follow-up appointment Last date the medication was ordered: 01/10/2022 Pharmacy: [id number] [facility] Labs: Lab Results Component Value Date/Time CREATININE - [facility] 1.0 07/06/2022 08:19 AM CREATININE - [facility] 1.1 10/28/2019 03:56 PM CREATININE, RANDOM URINE - [facility] 253 01/16/2022 07:07 AM CREATININE, RANDOM URINE - [facility] 206 10/28/2019 04:08 PM No components found for: E G documented in this encounter Plan of Treatment Upcoming Encounters Date Type Specialty Care Team Description 02/07/2023 Office Visit Internal Medicine Preeti Landin MD [address] [place] [id number] Scheduled Procedures Name Priority Associated Diagnoses Date/Ti me COLONOSCOPY FLEXIBLE PROXIMA L DIAGNOSTIC Recall History of colonic polyps Health Maintenance Due Date Last Done Comments COVID-19 Vaccine (#1) 1955 Depression Screening 02/19/2020 02/18/2019 DIABETES-EYE EXAM 06/02/2022 06/02/2021, , 11/04/2018, Additional history exists Influenza Vaccine (FLU shot) (#1) 2022 11/27/2021, 12/14/2020, 11/30/2019, Additional history exists HbA1c 01/05/2023 07/06/2022, 11/0 10/2021, 10/19/2021, Additional history exists Albumin/Creatinine Ratio 01/16/2023 022, 01/04/2021, 10/28/2019, Additional history exists B-12 07/07/2023 07/06/2022, 05/0 08/2021, 01/04/2021, Additional history exists GFR 07/07/2023 07/06/2022, 11/0 10/2021, 10/31/2021, Additional history exists Diabetic Foot Exam 08/08/2023 08/07/2022, 0 07/17/2021, 09/03/2020, Additional history exists COLONOSCOPY-EVERY 5 YRS AGES 18-100 11/08/2023 11/07/2018, 11/07/2018, 10/28/2015 DTaP,Tdap,and Td Vaccines (4 - Td or Tdap) 09/14/2024 09/14/2014, 08/08/2010, 07/05/2009 Lipid Panel 07/07/2027 07/06/2022, 110 10/2021, 01/16/2022, Additional history exists Zoster Vaccines Completed 02/18/2019, 11/09, 04/23/2016 Pneumococcal Vaccine: 65+ Years Completed 05/15/2021, 03/24/2020, 02/06/2013 Hepatitis B Completed 08/07/2022, 02/09, 01/24/2022 GARDASIL-HPV IMMUNIZATION SERIES Aged Out No longer eligible based on patient's age to complete this topic MENINGOCOCCAL (MENACTRA/MENVEO) Aged Out No longer eligible based on patient's age to complete this topic documented as of this encounter Medical Devices Not on filedocumented as of this encounter Visit Diagnoses Diagnosis Type 2 diabetes mellitus with hemoglobin A1c goal of less than 7.5% (HCC) documented in this encounter Advance Directives Latest Code Status [...] and were consensually agreed upon. Care Teams Clerical Support Relationship Specialty Start Date End Date Preeti Landin MD [address] [facility], [place] [id number] PCP - General Internal Medicine 01/11/21 documented as of this encounter
--- OUTSIDE RECORDS SUMMARY | 2023-01-18 12:27 | External Medical Summary | Summary of Care ---
Author Name Unknown Organization [facility] Address [address] [facility] [place] [address] Phone [phone] Care Team Providers Care Data Warehouse Analyst Name Role Phone Preeti Landin MD Primary Care Provider [phone] Reason for Referral * Evaluate & Treat - Unlimited Visits (Within 10 days (routine)) - Authorized Specialty Diagnoses / Procedures Referred By Conthoward blancas Referred To Contact Pain Management / Pain Medicine Diagnoses SI (sacroiliac) pain Rigoberto Espinosa MD [address] [facility] [place] [address] Referral ID Status Reason Start Date Expiration Date Visits Requested Visits Authorized [id number] Authorized Specialty Services Required 08/24/2022 999 999 Question Answer Referral Priority Within 10 days (routine) Reason for referral? Interventional Pain Management - (Injection) What is the preferred location to have this test performed? [facility] Comments Patient Name: Eduardo Shelby Date of : 1955 Department Phone Number: MRI or CT (if unable to have a MRI) is recommended if any of the following apply: 1. Patient has neck or back pain with radiation to extremities. A previous MRI will be accepted if symptoms unchanged since prior MRI. 2. Spinal surgery since last MRI. If yes, order a MRI with and without contrast. 3. Hx or ongoing cancer treatment. Patient will need spine x-ray (Ap/Lat) for axial neck or back pain if not done previously. Fax No. [facility] [phone] or contact lead front end developer [phone] Fax No. [facility] [phone] or contact lead front end developer [phone] Fax No. [facility] [phone] or contact lead front end developer [phone] Reason for Visit * Reason Comments NEW PATIENT Left hip pain * Evaluate & Treat - Unlimited Visits (Within 30 days (routine)) - Authorized Specialty Diagnoses / Procedures Referred By Contac t Referred To Contact Orthopaedic Surgery / Orthopedics Diagnoses Hip pain, left Arthritis of left hip Preeti Landin MD [address] [place] [address] Referral ID Status Reason Start Date Expiration Date Visits Requested Visits Authorized [id number] Authorized Specialty Services Required 08/07/2022 999 999 Encounter Details Date Type Department Care Team Description 08/24/2022 Office Visit Orthopaedics [facility] [address] [place] [address] Rigoberto Espinosa MD [address] [place] [facility] [place] [address] Chronic hip pain, left*; SI (sacroiliac) pain Allergies Active Allergy Reactions Severity Noted Date Comments Bee Venom 04/28/2019 Empagliflozin 01/24/2022 Inc Anion gap Lisinopril Cough 11/19/2018 Imp off med Penicillin G 06/30/1997 hives documented as of this encounter (statuses as of 08/24/2022) Medications Medication Sig Dispensed Refills Start Date [...] as of this encounter (statuses as of 08/24/2022) Active Problems Problem Noted Date Ascending aorta [...] as of this encounter (statuses as of 08/24/2022) Resolved Problems Problem Noted Date Resolved Date [...] as of this encounter (statuses as of 08/24/2022) Immunizations Name Administration Dates Next Due DTaP [...] on file documented as of this encounter Progress Notes * Rigoberto Espinosa MD - 08/24/2022 9:00 AM EDT Eduardo Shelby [id number] Eduardo Shelby is a 64 year old male who presents for consultation for f/[facility]. Consultation by Dr. Preeti Landin MD I saw him originally for this on 12/23/2019 Most recent complete visit for this was on 01/13/2020, however I have seen him since for procedure only visits Eduardo Shelby is here unaccompanied Quality: reviewed and agree with Nursing Notes for HPI elements History: History on 12/23/2019 - Pt presents [facility] for left hip pain. States he played golf Saturday morning but by afternoon he was having left groin pain. Pain will radiate into the thighslightly but not very distally. No paresthesias. No treatments tried at this point. Assessment and Plan on 12/23/2019: 1) left hip pain Likely secondary degenerative changes noted on radiograph Treatment options discussed Patient like to try intra-articular steroid injection This was performed today in the office with ultrasound guidance. Follow-up in 3 weeks Did note some improvement following the injection Additional history on Patient presents today for left hip injection 12/23/19. Patient notes has seen some improvement, level 2/10, states when on it along time, still hurts Since that visit: I saw him most recently for this on 03/22/2020 for completion of viscosupplementation with gelsyn in the Left hip Reports that Left hip is painful. Has had past injections with [facility]. States that they were helpful. There are xrays of the SI and Lumbar spine in epic from July. States that sitting is uncomfortable. Walking is less painful than sitting. ROS: ROS per HPI otherwise non-contributory Past Medical History: Diagnosis Date Allergic rhinitis 11/07/2012 BPH (benign prostatic hyperplasia) Corns and callosities 11/07/2012 DM type 2, goal A1c below 7 11/07/2012 Dyslipidemia, goal LDL below 100 11/07/2012 Erectile dysfunction due to arterial insufficiency 04/23/2016 Excessive daytime sleepiness 10/17/2015 Generalized osteoarthritis 11/07/2012 HTN, goal below 140/80 11/19/2012 HTN, goal below 140/90 04/29/2014 Hydrocele 11/07/2012 Mixed dyslipidemia Noise-induced hearing loss Other allergic rhinitis 03/17/2015 Other specified type of hydrocele 09/26/06 Post-traumatic osteoarthritis of left elbow 10/22/2016 Post-traumatic osteoarthritis of right elbow 10/22/2016 Tubular adenoma of colon Vitamin D insufficiency 02/28/2014 Family History Problem Relation Age of Onset Heart Disorder Mother Cancer Father 83 colon No Known Problems Sister No Known Problems Sister No Known Problems Sister No Known Problems Brother Social History Socioeconomic History Marital status: Spouse name: Not on file Number of children: 0 Years of education: 12 Highest education level: Not on file Occupational History Occupation: [employer] 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 Sexual activity: Yes Partners: Female Lifestyle Physical activity Days per week: Not on file Minutes per session: Not on file Stress: Not on file Relationships Social connections Talks on phone: Not on file Gets together: Not on file Attends congregation service: Not on file Active member of club or organization: Not on file Attends meetings of clubs or organizations: Not on file Relationship status: Not on file Intimate partner violence Fear of current or ex partner: Not on file Emotionally abused: Not on file Physically abused: Not on file Forced sexual activity: Not on file Other Topics Concern Service No Blood Transfusions No Caffeine Concern No Occupational Exposure Yes Hobby Hazards No Sleep Concern No Stress Concern No Weight Concern No Special Diet Yes Back Care Not Asked Exercise Not Asked Bike Helmet Not Asked Seat Belt Yes Self-Exams Not Asked Social History Narrative Not on file Vaping/E-Cigarette Use Vaping/E-Cigarette Use Never User Vaping/E-Cigarette Substances Vaping/E-Cigarette Devices Physical Exam Constitutional: Generally well-nourished and in no acute distress Psychiatric: Mood and Affect normal Eyes: EOMI Respiratory: Normal respiratory effort with regular rate and rhythm Cardiovascular: No edema in the affected extremity (s) Hip and Pelvis Exam Gait: Limp: Positive Antalgic: Positive Scars / Previous Surgery or Trauma: None Alignment: Normal Palpation: No greater trochanter tenderness, significant tenderness left SI joint , no anterior groin tendernessHernia: No ROM: Flexion (normal 120-130): L - 120 Internal rotation 0, external rotation 30 Mild increase in pain with internal rotation of the hip Strength: Out of 5 with hip flexion Lumbar Spine Tests: negative SLR Slump Test: Negative Radiology (I have personally reviewed the following films): 08/24/2022: Three-view x-ray of the left hip Moderate degenerative change, no significant change compared to previous radiographs from 12/23/2019 - per my interpretation. Awaiting formal radiology interpretation. 08/07/2022: SI joint xr FINDINGS No visible fracture. Alignment is normal. No convincing radiographic evidence of sacroiliitis. There is mild-moderate osteoarthritis involving both SI joints, stable to mildly increased compared to prior radiographs. Left greater than right hip osteoarthritis, partially visualized. IMPRESSION IMPRESSION 1. No radiographic evidence of sacroiliitis. 2. Degenerative changes as above. 07/17/2021: 2 view xr lumbar spine (AP and lateral views) FINDINGS Slight grade 1 anterolisthesis L4-L5. Mild diffuse degenerative disc disease. Bony demineralization. No evidence for fracture. IMPRESSION IMPRESSION Mild degenerative disc disease 12/23/2019: Three-view x-ray left hip FINDINGS Moderate osteoarthritis left hip. No fracture or dislocation. IMPRESSION IMPRESSION Moderate osteoarthritis left hip. Assessment and Plan: 1) left hip pain Note: I have treated this patient the past for left hip DJD with treatments as listed below. For, on presentation today the majority of his pain is at his left SI joint Substantial improvement following intra-articular hip injection provided in the office ultrasound guidance on 12/23/2019 He he also had substantial improvement with completion of viscosupplementation on 03/22/2020 with gelsyn Pain management referral Follow-up with me in 2 months Rigoberto Espinosa MD Primary Care Sports Medicine [facility] [address] [facility] [address] documented in this encounter Nursing Notes * Marleny Bravo ATC - 08/24/2022 8:41 AM EDT Reports that Left hip is painful. Has had past injections with [facility]. States that they were helpful. There are xrays of the SI and Lumbar spine in [facility] from July. States that sitting is uncomfortable. Walking is less painful than sitting. documented in this encounter Plan of Treatment Upcoming Encounters Date Type Specialty Care Team Description 09/10/2022 Office Visit Pain Medicine Brittani Coleman PA-C [address] [facility] [place] [id number] 10/24/2022 Office Visit Orthopedics Rigoberto Espinosa MD [address] [place] [address] 02/07/2023 Office Visit Internal Medicine Preeti Landin MD [address] [facility], [place] [address] Pending Results Name Type Priority Associated Diagnoses Date /Time XR HIP UNILAT 2-3 VIEWS INCLUDING AP PELVIS Medical Imaging Routine Chronic hip pain, left 08/24/2022 9:06 AM EDT Scheduled Procedures Name Priority Associated Diagnoses Date/Ti me COLONOSCOPY FLEXIBLE PROXIMA L DIAGNOSTIC Recall History of colonic polyps Scheduled Referrals Name Type Priority Associated Diagnoses Orde r Schedule PAIN MEDICINE REFERRAL OP Referral Within 10 days (routine) SI (sacroiliac) pain Ordered: 08/24/2022 Health Maintenance Due Date Last Done Comments COVID-19 Vaccine (#1) 1955 Depression Screening, Annual for Pts 12 and Over 02/19/2020 02/18/2019 DIABETES-EYE EXAM 06/02/2022 06/02/2021, , 11/04/2018, Additional history exists HbA1c 01/05/2023 07/06/2022, 110 10/2021, 10/19/2021, Additional history exists Albumin/Creatinine Ratio 01/16/2023 022, 01/04/2021, 10/28/2019, Additional history exists GFR 07/07/2023 07/06/2022, 11/0 10/2021, 10/31/2021, Additional history exists Yearly B-12 07/07/2023 07/06/2022, 05/0 08/2021, 01/04/2021, Additional history exists DIABETES-FOOT EXAM 08/08/2023 08/07/2022, 0 07/17/2021, 09/03/2020, Additional history exists COLONOSCOPY-EVERY 5 YRS AGES 18-100 11/08/2023 11/07/2018, 11/07/2018, 10/28/2015 DTaP,Tdap,and Td Vaccines (4 - Td or Tdap) 09/14/2024 09/14/2014, 08/08/2010, 07/05/2009 Lipid Panel 07/07/2027 07/06/2022, 11/0 10/2021, 01/16/2022, Additional history exists Zoster Vaccines [...] as of this encounter Visit Diagnoses Diagnosis Chronic hip pain, left- Primary SI (sacroiliac) pain Disorders of sacrum documented in this encounter Advance Directives Latest [...] and were consensually agreed upon. Care Teams Data Warehouse Analyst Relationship Specialty Start Date End Date Preeti Landin MD [address] [place] [address], [place] [address] PCP - General Internal Medicine 01/11/21 documented as of this encounter
--- OUTSIDE RECORDS SUMMARY | 2023-01-18 12:27 | External Medical Summary | Summary of Care ---
Author Name Unknown Organization [facility] Address [address] [facility] [place] [address] Phone [phone] Care Team Providers Care Product Sales Engineer Name Role Phone Preeti Landin MD Primary Care Provider [phone] Reason for Visit * Reason Comments Back Pain * Evaluate & Treat - Unlimited Visits (Within 10 days (routine)) - Authorized Specialty Diagnoses / Procedures Referred By Speedy blancas Referred To Contact Pain Management / Pain Medicine Diagnoses SI (sacroiliac) pain Rigoberto Espinosa MD [address] [place] [phone] Referral ID Status Reason Start Date Expiration Date Visits Requested Visits Authorized [id number] Authorized Specialty Services Required 08/24/2022 999 [id number] Encounter Details Date Type Department Care Team Description 10/02/2022 Office Visit [facility], [facility] [address] [place] [id number] CousinRivera hunter DO [address] [place] [phone] Sacroiliitis (HCC)* Allergies Active Allergy Reactions Severity Noted Date Comments Bee Venom 04/28/2019 Empagliflozin 01/24/2022 Inc Anion gap Lisinopril Cough 11/19/2018 Imp off med Penicillin G 06/30/1997 hives documented as of this encounter (statuses as of 10/02/2022) Medications Medication Sig Dispensed Refills Start Date [...] mouth daily. 100 Tab 3 01/16/2018 Active MxBiodevicesTOUCH ULTRASOFT LANCETS MISC Use 3 times daily as directed -E11.9 100 Each 11 02/18/2019 Active Lancet Devices (MxBiodevicesTOUCH DELICA LANCING DEV) MISC Use 3 times [...] as of this encounter (statuses as of 10/02/2022) Active Problems Problem Noted Date Ascending aorta [...] as of this encounter (statuses as of 10/02/2022) Resolved Problems Problem Noted Date Resolved Date [...] as of this encounter (statuses as of 10/02/2022) Immunizations Name Administration Dates Next Due DTaP [...] as of this encounter Progress Notes * Rivera Ma, DO - 10/02/2022 2:06 PM EDT GENERAL HISTORY & PHYSICAL EXAMINATION - Anesthesia and Pain Service Name: Eduardo Shelby Location: [facility] REFERRING PHYSICIAN: Preeti Landin MD Thank you for referring Eduardo Shelby. CHIEF COMPLAINT: Left buttock pain HPI: Eduardo Shelby is a 67 year old male who presents for consultation at the request of Dr. Espinosa, regarding a long-standing history of intermittent pain in the left buttock and hip area. Patient indicates couple years ago he was seen by the orthopedic department for left hip and groin pain indid undergo ultrasound-guided injection of the hip joint with prompt improvement is symptoms. He had a recent recurrence of pain although more posterior in the buttock area without groin symptoms. Hehad some aching toward the lateral aspect of his hip or upper thigh but not extending to the knee. He denies motor weakness or bowel bladder dysfunction. He is comfortable walking but has increased pain sitting or going from seated to standing position. He was seen for orthopedic re-evaluation it was felt that this was more likely an SI joint mediated pain and he was sent for my review today in consideration of possible injection. He did have recent x-rays of the hips pelvis and lumbar spine which I reviewed. PAST MEDICAL HISTORY: Past Medical History: Diagnosis Date Allergic rhinitis [...] adenoma of colon Vitamin D insufficiency 02/28/2014 Past Medical History - Pertinent Findings: PAST SURGICAL HISTORY: Past Surgical History: Procedure Laterality Date ARTHROPLASTY KNEE TOTAL Bilateral 2010 DrEllis COLONOSCOPY, DIAGNOSTIC (RECTUM) 08/18/10 hyperplastic polyp- Dr Cox- repeat in 5 years COLONOSCOPY, DIAGNOSTIC (RECTUM) 10/28/2015 adenomatous polyps, diverticulosis, repeat 3 yrs/[facility] COLONOSCOPY, DIAGNOSTIC (RECTUM) 11/07/2018 diverticulosis sigmoid colon/biopsies show adenomatous polyps/recall 5 years/FLEXIBLE PROXIMAL DIAGNOSTIC performed by Lizeth Walsh MD at [facility] ELBOW ARTHROSCOPY/REMOVE OBJECT Right 05/20/2019 ARTHROSCOPY ELBOW WITH REMOVAL LOOSE BODY performed by Breanna Matre DO at [facility] EXPLORATION OF SCROTUM Right 01/26/2016 ADULT SCROTAL EXPLORATION performed by Reena Murillo MD at [facility] EXPLORE PENETRATING WND, ABDMN/BACK Right 03/02/2016 EXPLORATION OF PENETRATING WOUND ABDOMEN FLANK OR BACK performed by Reena Murillo MD at [facility] KNEE ARTHROSCOPY/MENISCUS REPAIR 2004 right and left - Dr. Rivers MANIPULATE ELBOW W/ANESTH Right 05/20/2019 MANIPULATION ELBOW WITH ANESTHESIA performed by Breanna Marte DO at [facility] OPEN WOUND DEBRIDEMENT UP TO 20 CM2 Right 03/02/2016 OPEN WOUND DEBRIDEMENT UP TO 20 CM2 performed by Reena Murillo MD at [facility] RELEASE ELBOW JOINT Right 05/20/2019 ARTHROTOMY ELBOW WITH CAPSULAR EXCISION FOR CAPSULAR RELEASE performed by Breanna Marte DO at [facility] REMOVAL OF APPENDIX age 11 REMOVAL OF HYDROCELE, UNILATERAL Right 12/23/2015 EXCISION HYDROCELE UNILATERAL performed by Reena Murillo MD at [facility] REVISION OF ULNAR NERVE AT ELBOW Right 10/26/2020 NEUROPLASTY AND OR TRANSPOSITION ULNAR NERVE ELBOW performed by Breanna Marte DO at [facility] US SCROTUM/TESTES 09/26/06 bilateral hydrocele FAMILY HISTORY: Family History Problem Relation Age of Onset Heart Disorder Mother Cancer Father 83 colon No Known Problems Sister No Known Problems Sister No Known Problems Sister No Known Problems Brother Family History - Pertinent Findings: SOCIAL HISTORY: Social History Tobacco Use Smoking status: Never Smokeless tobacco: Former Types: Snuff Vaping Use Vaping Use: Never used Substance Use Topics Alcohol use: Not Currently Alcohol/week: 66.7 standard drinks Types: 80 12 oz of beer per week 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 Ordered medications to be given in the future also display. Current Outpatient Medications Medication Sig Dispense Refill EPINEPHrine, anaphylaxis, (EPI-PEN) 0.3 MG/0.3ML SOAJ injection For a severe reaction: Place orange end against the outer thigh, press firmly, hold in place for 10 seconds and go to the Emergencyroom. 2 Device 3 aspirin enteric coated 81 MG TBEC Take 1 Tab by mouth daily. 100 Tab 3 ONETOUCH ULTRASOFT LANCETS MISC Use 3 times daily as directed -E11.9 100 Each 11 Lancet Devices (ONETOUCH DELICA LANCING DEV) MISC Use 3 times daily as directed -E11.9 100 Each11 OneTouch Ultra Blue In Vitro Strip (Glucose Blood) Patient tests 2 times a day. Dx E11.9 100 Strip 5 Glucose Blood In Vitro Strip Use 3 times daily as directed -E11.9 100 Strip 11 Ozempic (1 MG/DOSE) 4 MG/3ML Subcutaneous Solution Pen-injector (Semaglutide (1 MG/DOSE)) INJECT UNDER THE SKIN 1 MG ONCE A WEEK . DX:E11.9 9 mL 3 Ibuprofen 200 MG Oral Tablet (Motrin IB) Take 2 Tablets (400 mg) by mouth 2 times a day as needed for Pain, Moderate. 50 Tablet 1 Tadalafil 5 MG Oral Tablet (Cialis) Take 1 Tablet (5 mg) by mouth in the morning. 30 Tablet 5 Gabapentin 100 MG Oral Capsule (Neurontin) TAKE 1 CAPSULE BY MOUTH AT 8 PM. START 05/15/21 30 Capsule 2 glipiZIDE ER 5 MG Oral Tablet Extended Release 24 Hour (glipiZIDE XL) Take 1 Tablet by mouth daily before dinner. 30 minutes before a meal. With 10 mg tab - dec dose from 07/13/2022 90 Tablet 1 glipiZIDE ER 10 MG Oral Tablet Extended Release 24 Hour (glipiZIDE XL) Take 1 Tablet by mouth daily before dinner. 30 minutes before a meal. with 5mg tab - dec dose from 07/13/2022 90 Tablet 1 metFORMIN HCl ER 500 MG Oral Tablet Extended Release 24 Hour (Glucophage XR) TAKE 4 TABLETS BY MOUTH EVERY DAY WITH DINNER 360 Tablet 3 Losartan Potassium 50 MG Oral Tablet (Cozaar) Take 0.5 Tablets by mouth every evening. 45 Tablet 1 Atorvastatin Calcium 40 MG Oral Tablet (Lipitor) Take 1 Tablet by mouth every evening. 90 Tablet 1 No current facility-administered medications for this visit. ALLERGIES: Bee venom, Jardiance [empagliflozin], Lisinopril, and Penicillin g ROS: Constitutional: Negative for fatigue, fever, appetite change, unexplained weight loss. ENT: Negative for hearing loss, sore throat. Respiratory: Negative for cough, shortness of breath, dyspnea. Musculoskeletal: Positive for left buttock Neurological: Negative for headaches, seizures. Genitourinary: Negative for dysuria, urinary frequency, hematuria. Hematologic/ Lymphatic: Negative for easy bleeding, bruising, lymphadenopathy. Gastrointestinal: Negative for abdominal pain, nausea, vomiting, constipation, diarrhea. Cardiovascular: Negative for chest pain, palpitations, ankle swelling, orthopnea. PHYSICAL EXAMINATION: Most Recent Vital Signs: There were no vitals filed for this visit. General Appearance: Patient appears to be about stated age, pleasant and cooperative with normal affect. HEENT: head normocephalic, pupils equal round and reactive to light and accommodation, EOMI, hearing intact and equal bilaterally and nose clear, throat normal Heart: regular rate and rhythm Lungs: Clear to Auscultation MS: He can stand ambulate without gait abnormality. He has +5 over 5 motor function lower extremities. There are no gross sensory deficits noted. There is tenderness over the left sacroiliac joint positive ROSS. He does not have groin pain with range of motion testing of the hips. There is no painwith straight leg raising. He has +1 over 4 Achilles and patellar reflexes bilaterally. IMAGING: X-rays of the hips reveal at least mild the osteoarthritic changes bilaterally. There may be some sclerotic changes the SI joints. Lumbar spine x-rays show wrist early degenerative loss of disc height the there is upper lumbar scoliotic curvature. ASSESSMENT: Left sacroiliitis Possible lumbar radicular pain PLAN: Certainly reasonable pursue injection of the left sacroiliac joint with fluoroscopic guidance for both diagnostic and therapeutic benefit. Procedural risks including bleeding, infection, worsening pain or steroid side effects were reviewed and accepted. He would like to proceed will be scheduled pending insurance approval. If this is unsuccessful then a may consider MRI lumbar spine depending on the presentation. Rivera Ma DO 10/02/2022 I spent a total of 30-39 minutes (exact time 32 mins) on the date of service in preparation, delivery, and documentation of the care provided to Eduardo Shelby excluding any time spent in the performance of separately billed services. documented in this encounter Plan of Treatment Upcoming Encounters Date Type Specialty Care Team Description 10/24/2022 Office Visit Orthopedics Rigoberto Espinosa MD [address] [place] [phone] 11/21/2022 Hospital Encounter Surgery Rivera Ma DO [address] [place] [phone] 11/21/2022 Surgery Surgery Rivera Ma DO [address] [place] [phone] INJECTION SACROILIAC JOINT 02/07/2023 Office Visit Internal Medicine Preeti Landin MD [address] [facility] [place] [address] Scheduled Orders Name Type Priority Associated Diagnoses Orde r Schedule SACROILIAC JOINT INJECT W/GUIDANCE Procedures Routine Sacroiliitis (HCC) Ordered: 10/02/2022 Scheduled Procedures Name Priority Associated Diagnoses Date/Ti me INJECTION SACROILIAC JOINT Lumbar radiculopathy 11/21/2022 2:00 PM EDT COLONOSCOPY FLEXIBLE PROXIMAL DIAGNOSTIC Recall History of colonic polyps Health [...] 01/04/2021, Additional history exists GFR 07/07/2023 07/06/2022, 110 10/2021, 10/31/2021, Additional history exists DIABETES-FOOT EXAM 08/08/2023 08/07/2022, [...] as of this encounter Visit Diagnoses Diagnosis Sacroiliitis (HCC)- Primary Sacroiliitis, not elsewhere classified Lumbar radiculopathy Thoracic or lumbosacral neuritis or radiculitis, unspecified documented in this encounter Advance Directives Latest [...] and were consensually agreed upon. Care Teams Product Sales Engineer Relationship Specialty Start Date End Date Preeti Landin MD [address] [place] [address] PCP - General Internal Medicine 01/11/21 documented as of this encounter
--- OUTSIDE RECORDS SUMMARY | 2023-01-18 12:27 | External Medical Summary | Summary of Care ---
Author Name Unknown Organization [facility] Address [address] [facility] [place] [address] Phone [phone] Care Team Providers Care Coil Winder Hand Name Role Phone Preeti Landin MD Primary Care Provider [phone] Reason for Visit * Auth/Cert Specialty Diagnoses / Procedures Referred By Contac t Referred To Contact Diagnoses Lumbar radiculopathy Lumbar radiculopathy [M54.16] Procedures SACROILIAC JOINT INJECT W/GUIDANCE INJECTION SACROILIAC JOINT Referral ID Status Reason Start Date Expiration Date Visits Re quested Visits Authorized [id number] Encounter Details Date Type Department Care Team Description 11/21/2022 Hospital Encounter OR [facility], Operating Room [facility] [address] [place] [id number] PeteelsaRiveraianDO [address] [place] [id number] Allergies Active Allergy Reactions Severity Noted Date Comments Bee Venom 04/28/2019 Empagliflozin 01/24/2022 Inc Anion gap Lisinopril Cough 11/19/2018 Imp off med Penicillin G 06/30/1997 hives documented as of this encounter (statuses as of 11/22/2022) Medications Medication Sig Dispensed Refills Start Date [...] as of this encounter (statuses as of 11/22/2022) Active Problems Problem Noted Date Ascending aorta [...] as of this encounter (statuses as of 11/22/2022) Resolved Problems Problem Noted Date Resolved Date [...] as of this encounter (statuses as of 11/22/2022) Immunizations Name Administration Dates Next Due DTaP Dipth/Tet/Acell Pertussis (Infanrix), Peds 08/08/2010,07/05/2009 Hepatitis B, 20+ yrs 08/07/2022,02/28/2022,01/24 Pneumococcal Conjugate Vacc, 13 Valent (Prevnar) 03/24/2020 Pneumococcal Polysaccharide PPV23 (Pneumovax) 05/15/2021,02/06/2013 Seasonal Influenza, PF, 6 mo ns & Above, IM , (Flulaval) 11/30/2019,11/19/2018,01/08/2018 Seasonal Influenza, Quadriva lent Hd (Fluzone [...] on file documented as of this encounter Last Filed Vital Signs Vital Sign Reading Time Taken Comments Blood Pressure 137/67 11/21/2022 1:51 PM EDT Pulse 65 11/21/2022 1:51 PM EDT Temperature 36.3 C (97.4 F) 11/21/2022 1:51 PM ED T Respiratory Rate 17 11/21/2022 1:51 PM EDT Oxygen Saturation 96% 11/21/2022 1:51 PM EDT Inhaled Oxygen Concentration - - Weight - - Height - - Body Mass Index - - documented in this encounter Discharge Instructions * Discharge Instr - AVS* Rivera Ma DO - 11/21/2022 1:48 PM EDT [facility] [address] [place] [address] Discharge Date: 11/21/2022 You may call [facility] at [phone] during business hours. For after-hours emergencies call 911. Your attending physician at the time of your discharge was: Rivera Ma DO [address] [facility] [place] [address] The information below provides you with the instructions and the list of medications you need to betaking following discharge from the hospital. If you have any questions, please ask before leaving.Please carry this letter with you when you see your doctor in the clinic. Diet: Resume your normal diet If you are diabetic, follow your blood sugars closely for next 2-3 days as they are likely to be elevated. If you are having difficulty controlling your blood sugars call your family doctor or the physician that treats your diabetes. Activity: Do not engage in strenuous activity today Resume your normal activities tomorrow Do not soak in water for 24 hours. No swimming, hot tub or bath but showering is allowed. Do not use heat on the injection site for 24 hours. If uncomfortable ice may be helpful. Some injections may make your arms or legs weak for a few hours. Be extremely careful when walking or changing positions that you do not fall. Have someone assist you for the next 6 hours. If weakness or numbness becomes progressive CALL IMMEDIATELY or GO TO THE NEAREST EMERGENCY ROOM Keep a diary of your pain until seen in the office to help us determine how effective the injectionwas Do not restart physical therapy or chiropractic manipulation until 48 hours after your injection Call : If weakness or numbness suddenly becomes worse or become progressive If the injection site becomes red, swollen, warm to the touch, begins to bleed or drain fluid, or is excessively painful. If you have any questions Medications: Resume all the medications you were taking prior to your injection. Resume your anticoagulants tomorrow unless otherwise instructed by your family physician, employee development manager or the anticoagulation clinic. Additional Instructions: Driving: . Date you may return to work or school: Follow Up: Call [phone] in 4 weeks. documented in this encounter Progress Notes * Rivera Ma DO - 11/21/2022 1:48 PM EDT [facility] [place] [address] [facility] [place] [phone] OUTPATIENT SURGERY DISCHARGE SUMMARY NOTE Name: Eduardo Shelby Location: OR [facility]/OR Date: 11/21/2022 Time: 1:48 PM Surgery Date: 11/21/2022 Procedure: Procedure(s): INJECTION SACROILIAC JOINT No laterality found for procedure #1 Surgeon: Surgeon(s): Rivera Ma DO Discharge Diagnosis: Left sacroiliitis After examination of this patient, I have determined he is ready for discharge to home when the patient meets criteria. Discharge instructions were given to the patient. documented in this encounter H&P Notes * Rivera Ma DO - 11/21/2022 7:00 AM EDT Interventional Pain Pre-Procedure Assessment Name:Eduardo Shelby Date:11/21/2022 Time:7:00 AM Procedure(s): Left sacroiliac joint injection Diagnosis: Left sacroiliitis Pre-Procedure Assessment: Prior to the procedure, the patient was identified. The patient's history, medications and allergies were reviewed . The patient is competent. The risks and benefits of the proposed procedure and theplanned sedation were discussed with the patient. All questions were answered and informed consent for the procedure was obtained. Prior to Admission medications Medication Sig Last Dose Discont. Atorvastatin Calcium 40 MG Oral Tablet (Lipitor) Take 1 Tablet by mouth every evening. Losartan Potassium 50 MG Oral Tablet (Cozaar) Take 0.5 Tablets by mouth every evening. metFORMIN HCl ER 500 MG Oral Tablet Extended Release 24 Hour (Glucophage XR) TAKE 4 TABLETS BY MOUTH EVERY DAY WITH DINNER glipiZIDE ER 10 MG Oral Tablet Extended Release 24 Hour (glipiZIDE XL) Take 1 Tablet by mouth dailybefore dinner. 30 minutes before a meal. with 5mg tab -dec dose from 07/13/2022 glipiZIDE ER 5 MG Oral Tablet Extended Release 24 Hour (glipiZIDE XL) Take 1 Tablet by mouth daily before dinner. 30 minutes before a meal. With 10 mg tab - dec dose from 07/13/2022 Gabapentin 100 MG Oral Capsule (Neurontin) TAKE 1 CAPSULE BY MOUTH AT 8 PM. START 05/15/21 Tadalafil 5 MG Oral Tablet (Cialis) Take 1 Tablet (5 mg) by mouth in the morning. Ibuprofen 200 MG Oral Tablet (Motrin IB) Take 2 Tablets (400 mg) by mouth 2 times a day as needed for Pain, Moderate. Ozempic (1 MG/DOSE) 4 MG/3ML Subcutaneous Solution Pen-injector (Semaglutide (1 MG/DOSE)) INJECT UNDER THE SKIN 1 MG ONCE A WEEK . DX:E11.9 Glucose Blood In Vitro Strip Use 3 times daily as directed -E11.9 OneTouch Ultra Blue In Vitro Strip (Glucose Blood) Patient tests 2 times a day. Dx E11.9 Lancet Devices (ONETOUCH DELICA LANCING DEV) MISC Use 3 times daily as directed -E11.9 ONETOUCH ULTRASOFT LANCETS MISC Use 3 times daily as directed -E11.9 aspirin enteric coated 81 MG TBEC Take 1 Tab by mouth daily. EPINEPHrine, anaphylaxis, (EPI-PEN) 0.3 MG/0.3ML SOAJ injection For a severe reaction: Place orangeend against the outer thigh, press firmly, hold in place for 10 seconds and go to the Emergency room. Review of patient's allergies indicates: Allergen Reactions Bee Venom Jardiance [Empagliflozin] Inc Anion gap Lisinopril Cough Imp off med Penicillin G hives There were no vitals taken for this visit. Physical Exam: Mental Status Examination: alert and oriented. Airway Examination: normal oropharyngeal airway and neck mobility. Respiratory Examination: clear to auscultation. CV Examination: normal. ASA Grade: II - A patient with mild systemic disease. After reviewing the risks and benefits, the patient was deemed in satisfactory condition to undergothe procedure. The anesthesia plan was to use local anesthesia. Rivera Ma DO 11/21/2022 documented in this encounter Nursing Notes * Airam Washington RN - 11/21/2022 1:57 PM EDT Pt tolerated procedure well. Pt has been visited by Dr. Ma. Discharge instructions reviewed with pt and pt has verbalized understanding of these teachings. Pt ready for discharge. * Jamila Marquez RN - 11/21/2022 1:49 PM EDT Band aid applied to area. Patient transferred to PACU 11 via wheelchair * Jamila Marquez RN - 11/21/2022 1:48 PM EDT Patient tolerating pain management injection well. documented in this encounter OR Notes * OR Surgeon - Rivera Ma DO - 11/21/2022 1:49 PM EDT OPERATIVE RECORD OR [facility], Operating Room [facility] [address] [place] [address] Eduardo Shelby : 1955 DOS: 11/21/2022 SERVICE: INTERVENTIONAL PAIN MANAGEMENT PRE-OP DIAGNOSIS: Left sacroiliitis. POST-OP DIAGNOSIS: Same. SURGEON: Rivera Ma DO. ASSISTANTS: None. ANESTHESIA: 2 mL of 1% lidocaine. OPERATION: Left sacroiliac joint injection. FINDINGS: No intraoperative findings. ESTIMATED BLOOD LOSS: None. DRAINS: There were no drains placed. FLUIDS: No IV fluids. URINE OUTPUT: None. SPECIMEN: No specimens collected. COMPLICATIONS: None. CONDITION: Good. INDICATIONS AND HISTORY: Eduardo Shelby presents in anticipation of undergoing injection of the left sacroiliac joint for persistent buttock pain refractory to conservative management. The procedure was reviewed, as well as the risks of bleeding, infection, neural injury, worsening pain, or steroid side effects. DESCRIPTION OF OPERATION: After obtaining appropriate informed consent, Eduardo Shelby was takento the fluoroscopy suite, placed in a prone position. Time- out was taken to identify the patient, procedure, and the injection site, and the left sacroiliac joint was identified. The overlying skin sterilely prepped with ChloraPrep and draped. 1% lidocaine, 2 mL, was infiltrated in the skin and subcutaneous tissue, and a #25 gauge, 3-1/2 inch spinal needle was directed with fluoroscopic guidance into the inferior aspect of the joint without pain or paresthesia. After negative aspiration 0.5 mL of Omnipaque 180 was easily injected and showed appropriate intra-articular placement. There was no evidence of intravascular spread of contrast. Kenalog 40 mg with 2 mL of 0.25% preservative-free bupivacaine was then easily injected without pain. Needle was removed. Patient tolerated procedure well. Eduardo Shelby will be re- evaluated in approximately 4 weeks by phone and was given appropriatedischarge instructions following postprocedural monitoring. Rivera Ma, 11/21/2022 1:49 PM documented in this encounter Plan of Treatment Upcoming Encounters Date Type Specialty Care Team Description 02/07/2023 Office Visit Internal Medicine Preeti Landin MD [address] [facility], [place] [address] Scheduled Procedures Name Priority Associated Diagnoses Date/Ti [...] 07/06/2022, 110 10/2021, 10/31/2021, Additional history exists Diabetic Foot Exam 08/08/2023 08/07/2022, 0 07/17/2021, 09/03/2020, Additional history exists COLONOSCOPY-EVERY 5 YRS AGES 18-100 11/08/2023 11/07/2018, 11/07/2018, 10/28/2015 DTaP,Tdap,and Td Vaccines (4 - Td or Tdap) 09/14/2024 09/14/2014, 08/08/2010, 07/05/2009 Lipid Panel 07/07/2027 07/06/2022, /10/2021, 01/16/2022, Additional history exists Zoster Vaccines Completed [...] Not on filedocumented as of this encounter Procedures Procedure Name Priority Date/Time Associated Diagnosis Comments FLUORO INTERVENTIONAL PAIN PROCEDURE NONBILLABLE Routine 11/21/2022 1:48 PM EDT documented in this encounter Results * FLUORO INTERVENTIONAL PAIN PROCEDURE NONBILLABLE (11/21/2022 1:48 PM EDT) Narrative Scheduling, Silent - 11/21/2022 1:49 PM EDT This procedure will not be read by a Radiologist. Please see operative note. Rivera Francesco Cousins DO RAD FLUOROSCOPY documented in this encounter Administered Medications Inactive Administered Medications - up to 3 most recent administrations Medication Order MAR Action Action Date Dose Rate Site bupivacaine (Sensorcaine) 0.25 % inj 2.5 mg 2.5 mg (1 mL), Injection, ONCE, On Sat11/21/22 at 1415, For 1 dose Given 11/21/2022 1:48 PM EDT 2 mL Iohexol (Omnipaque 180) inj 1 mL 1 mL, Injection, ONCE, On Sat11/21/22 at 1415, For 1 dose Given 11/21/2022 1:46 PM EDT 1 mL lidocaine 1 % inj 20 mg 20 mg (2 mL), Subcutaneous, ONCE, On Sat11/21/22 at 1415, For 1 dose Given 11/21/2022 1:45 PM EDT 20 mg O ther-Specify Triamcinolone Acetonide (Kenalog) 40 MG/ML inj 40 mg 40 mg, Intra-Articular, ONCE, On Sat11/21/22 at 1415, For 1 dose Given 11/21/2022 1:47 PM EDT 40 mg documented in this encounter Active and Recently Administered Medications Times are shown in EDT. Scheduled Medication Order 11/19/2022 11/20/2022 11/21/2022 bupivacaine (Sensorcaine) 0.25 % inj 2.5 mg (COMPLETED) 2.5 mg (1 mL), Injection, ONCE, On Sat11/21/22 at 1415, For 1 dose 1348 (Given - Provid er: Jamila Marquez RN) Iohexol (Omnipaque 180) inj 1 mL (COMPLETED) 1 mL, Injection, ONCE, On Sat11/21/22 at 1415, For 1 dose 1346 (Given - Provid er: Jamila Marquez RN) lidocaine 1 % inj 20 mg (COMPLETED) 20 mg (2 mL), Subcutaneous, ONCE, On Sat11/21/22 at 1415, For 1 dose 1345 (Given - Provid er: Jamila Marquez RN) Triamcinolone Acetonide (Kenalog) 40 MG/ML inj 40 mg (COMPLETED) 40 mg, Intra-Articular, ONCE, On Sat11/21/22 at 1415, For 1 dose 1347 (Given - Provid er: Jamila Marquez RN) documented in this encounter Advance Directives Latest [...] and were consensually agreed upon. Care Teams Coil Winder Hand Relationship Specialty Start Date End Date Preeti Landin MD [address] [facility] [place] [address] PCP - General Internal Medicine 01/11/21 documented as of this encounter
--- OUTSIDE RECORDS SUMMARY | 2023-01-18 12:27 | External Medical Summary | Summary of Care ---
Author Name Unknown Organization [facility] Address [address] [place] [address] Phone [phone] Care Team Providers Care Optical Effects Camera Operator Name Role Phone Preeti Landin MD Primary Care Provider [phone] Encounter Details Date Type Department Care Team Description 09/03/2022 Orders Only Outcomes Research Department [address] [place] [address] Trudi Raya CHRA [employer] Other*[id number] Allergies Active Allergy Reactions Severity Noted Date Comments Bee Venom 04/28/2019 Empagliflozin 01/24/2022 Inc Anion gap Lisinopril Cough 11/19/2018 Imp off med Penicillin G 06/30/1997 hives documented as of this encounter (statuses as of 09/03/2022) Medications Medication Sig Dispensed Refills Start Date [...] as of this encounter (statuses as of 09/03/2022) Active Problems Problem Noted Date Ascending aorta [...] as of this encounter (statuses as of 09/03/2022) Resolved Problems Problem Noted Date Resolved Date [...] as of this encounter (statuses as of 09/03/2022) Immunizations Name Administration Dates Next Due DTaP [...] on file documented as of this encounter Plan of Treatment Upcoming Encounters Date Type Specialty Care Team Description 10/02/2022 Office Visit Pain Medicine Rivera Ma DO [address] [place] [phone] 10/24/2022 Office Visit Orthopedics Rigoberto Espinosa MD [address] [place] [phone] 02/07/2023 Office Visit Internal Medicine Preeti Landin MD [address] [place] [address] Scheduled Orders Name Type Priority Associated Diagnoses Orde r Schedule MYCODE SUBSEQUENT ADULT Lab Routine [employer] Other*[id number] Every 6 Months for 2 Occurrences starting 09/03/2022 until 09/23/2023 Scheduled Procedures Name Priority Associated Diagnoses Date/Ti me COLONOSCOPY FLEXIBLE PROXIMA L DIAGNOSTIC Recall History of colonic polyps Health Maintenance Due Date Last Done Comments COVID-19 Vaccine (#1) 1955 Depression Screening, Annual for Pts 12 and Over 02/19/2020 02/18/2019 DIABETES-EYE EXAM 06/02/2022 06/02/2021, , 11/04/2018, Additional history exists HbA1c 01/05/2023 07/06/2022, 10/2021, 10/19/2021, Additional history exists Albumin/Creatinine Ratio 01/16/20232 022, 01/04/2021, 10/28/2019, Additional history exists GFR 07/07/2023 07/06/2022, 110 10/2021, 10/31/2021, Additional history exists Yearly B-12 07/07/2023 07/06/2022, 05/0 08/2021, 01/04/2021, Additional history exists DIABETES-FOOT EXAM 08/08/2023 08/07/2022, 0 07/17/2021, 09/03/2020, Additional history exists COLONOSCOPY-EVERY 5 YRS AGES 18-100 11/08/2023 11/07/2018, 11/07/2018, 10/28/2015 DTaP,Tdap,and Td Vaccines (4 - Td or Tdap) 09/14/2024 09/14/2014, 08/08/2010, 07/05/2009 Lipid Panel 07/07/2027 07/06/2022, 1110/2021, 01/16/2022, Additional history exists Zoster Vaccines Completed [...] as of this encounter Visit Diagnoses Diagnosis [employer] [facility] Other*[id number] documented in this encounter Advance Directives Latest [...] and were consensually agreed upon. Care Teams Optical Effects Camera Operator Relationship Specialty Start Date End Date Preeti Landin MD [address] [facility] [place] [address] PCP - General Internal Medicine 01/11/21 documented as of this encounter
--- OUTSIDE RECORDS SUMMARY | 2023-01-18 12:28 | External Medical Summary | Summary of Care ---
Author Name Unknown Organization [facility] Address [address] [facility] [place] [address] Phone [phone] Care Team Providers Care Progress Worker Name Role Phone Preeti Landin MD Primary Care Provider [phone] Reason for Visit * Reason Comments NEW PATIENT callus * Evaluate & Treat - Unlimited Visits (Within 10 days (routine)) - Authorized Specialty Diagnoses / Procedures Referred By Conthoward t Referred To Contact Podiatry Diagnoses Type 2 diabetes mellitus with hemoglobin A1c goal of less than 7.5% (HCC) Callus of foot Preeti Landin MD [address] [place] [address] Referral ID Status Reason Start Date Expiration Date Visits Requested Visits Authorized [id number] Authorized Specialty Services Required 08/07/2022 999 [id number] Encounter Details Date Type Department Care Team Description 08/09/2022 Office Visit Podiatry [facility] [address] [place] [phone] Carla Barber DPM [address] [place] [phone] Left foot pain*; Type 2 diabetes mellitus with hemoglobin A1c goal of less than 7.5% (HCC); Porokeratosis Allergies Active Allergy Reactions Severity Noted Date Comments Bee Venom 04/28/2019 Empagliflozin 01/24/2022 Inc Anion gap Lisinopril Cough 11/19/2018 Imp off med Penicillin G 06/30/1997 hives documented as of this encounter (statuses as of 08/09/2022) Medications Medication Sig Dispensed Refills Start Date [...] as of this encounter (statuses as of 08/09/2022) Active Problems Problem Noted Date Ascending aorta [...] as of this encounter (statuses as of 08/09/2022) Resolved Problems Problem Noted Date Resolved Date [...] as of this encounter (statuses as of 08/09/2022) Immunizations Name Administration Dates Next Due DTaP [...] as of this encounter Progress Notes * Carla Barber, JOSTINM - 08/09/2022 10:55 AM EDT Podiatry New Patient Note [facility] Name: Eduardo Shelby : 1955 Date: 08/09/2022 CHIEF COMPLAINT: Left foot pain HISTORY OF PRESENT ILLNESS: This patient is a 67 year old male who presents today with complaints of left foot pain. Pt states for the past month he has noticed increased pain to the bottom of his left foot. He has pain when walking barefoot and feels he is walking on something. He has little pain when wearing a shoe. Has a history of DM2. Denies any other complaints. Presents wearing sandals. Past Medical History: Diagnosis Date Allergic rhinitis [...] of colon Vitamin D insufficiency 02/28/2014 Past Surgical History: Procedure Laterality Date ARTHROPLASTY KNEE TOTAL Bilateral 2010 [facility] COLONOSCOPY, DIAGNOSTIC (RECTUM) 08/18/10 hyperplastic polyp- Dr Cox- repeat in 5 years COLONOSCOPY, DIAGNOSTIC (RECTUM) 10/28/2015 adenomatous polyps, diverticulosis, repeat 3 yrs/[facility] COLONOSCOPY, DIAGNOSTIC (RECTUM) 11/07/2018 diverticulosis sigmoid colon/biopsies show adenomatous polyps/recall 5 years/FLEXIBLE PROXIMAL DIAGNOSTIC performed by Lizeth Walsh MD at ENDOSCOPY [facility] ELBOW ARTHROSCOPY/REMOVE OBJECT Right 05/20/2019 ARTHROSCOPY ELBOW WITH REMOVAL LOOSE BODY performed by Breanna Marte DO at OR [facility] EXPLORATION OF SCROTUM Right 01/26/2016 ADULT SCROTAL EXPLORATION performed by Reena Murillo MD at OR [facility] EXPLORE PENETRATING WND, ABDMN/BACK Right 03/02/2016 EXPLORATION OF PENETRATING WOUND ABDOMEN FLANK OR BACK performed by Reena Murillo MD at OR [facility] KNEE ARTHROSCOPY/MENISCUS REPAIR 2004 right and left - Dr. Rivers MANIPULATE ELBOW W/ANESTH Right 05/20/2019 MANIPULATION ELBOW WITH ANESTHESIA performed by Breanna Marte DO at OR [facility] OPEN WOUND DEBRIDEMENT UP TO 20 CM2 Right 03/02/2016 OPEN WOUND DEBRIDEMENT UP TO 20 CM2 performed by Reena Murillo MD at OR [facility] RELEASE ELBOW JOINT Right 05/20/2019 ARTHROTOMY ELBOW WITH CAPSULAR EXCISION FOR CAPSULAR RELEASE performed by Breanna Marte DO at OR [facility] REMOVAL OF APPENDIX age 11 REMOVAL OF HYDROCELE, UNILATERAL Right 12/23/2015 EXCISION HYDROCELE UNILATERAL performed by Reena Murillo MD at OR [facility] REVISION OF ULNAR NERVE AT ELBOW Right 10/26/2020 NEUROPLASTY AND OR TRANSPOSITION ULNAR NERVE ELBOW performed by Breanna Marte DO at OR [facility] US SCROTUM/TESTES 09/26/06 bilateral hydrocele Family History Problem Relation Age of Onset Heart Disorder Mother Cancer Father 83 colon No Known Problems Sister No Known Problems Sister No Known Problems Sister No Known Problems Brother Social History Socioeconomic History Marital status: Number of children: 0 Years of education: 12 Occupational History Occupation: [employer] 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 ALLERGIES: Review of patient's allergies indicates: Allergen Reactions Bee Venom Jardiance [Empagliflozin] Inc Anion gap Lisinopril Cough Imp off med Penicillin G hives REVIEW OF SYSTEMS: CONSTITUTIONAL: No change in weight, No weakness, No fatigue and No fevers, sweats, or chills EYE: No recent significant change in vision and No eye pain, redness, discharge EARS: No ear pain and No recent change in hearing NOSE: No history of frequent colds or sinusitis and No nasal stuffiness PULMONARY: No cough, sputum, or hemoptysis and No recent change in breathing CARDIOVASCULAR: No chest pain and No shortness of breath EXTREMITIES: Left foot pain SKIN/INTEGUMENTARY: No edema, No rash and No itching NEUROLOGIC: Normal balance, No headaches, No seizures and No weakness PSYCHIATRIC: No depression, No anxiety and No psychosis LEFT FOCUSED PODIATRIC EXAM: Vitals: There were no vitals filed for this visit. General: Patient is awake alert oriented to person place time. No apparent distress. Vascular: DP/PT pulses palpable. CFT < 3 sec 1-5. No edema noted. Temperature gradient is normal warm to cold. Neurologic: Protective sensation intact to light touch. Sensation to sharp/dull is intact. There is no babinskiresponse elicited. Ankle clonus is absent. Dermatological: Skin is normal in appearance with no open lesions or interdigital macerations. Nails 1-5 are normalin length and thickness. Pedal hair is noted. Porokeratosis noted to the plantar left foot. Musculoskeletal: POP noted to porokeratosis. No pain with active or passive ROM of the digits or ankle joint. Musclestrength is 5/5 for all muscle groups of the lower extremity. DIAGNOSTIC STUDIES: None ASSESSMENT: 1. Left foot pain 2. Porokeratosis, left foot 3. DM2 PLAN: - Discussed with pt the cause of the plantar lesion and how this will always come back. - Skin lesion debrided to appropriate level with the use of a 15 blade x1 - Continue with pumice stone and lotion - Continue with good, supportive shoes - Pt to RTC as needed. Instructed to call with any problems or questions. Carla Barber DPM Referring: Preeti Landin MD documented in this encounter Nursing Notes * Cesia Rich LPN - 08/09/2022 10:21 AM EDT Pt presents for new visit, referred by PCP. Callus on bottom of R foot x several months, painful ifhe is not wearing shoes. documented in this encounter Plan of Treatment Upcoming Encounters Date Type Specialty Care Team Description 08/10/2022 Telemedicine Urology Fabian Parra MD [address] [facility] [address] [facility] [place] [id number] 7, Telemed [facility] [place] [id number] 08/24/2022 Office Visit Orthopedics Rigoberto Espinosa MD [address] [place] [phone] 02/07/2023 Office Visit Internal Medicine Preeti Landin MD [address] [place] [address], [place] [id number] Scheduled Procedures Name Priority Associated Diagnoses Date/Ti me COLONOSCOPY FLEXIBLE PROXIMA L DIAGNOSTIC Recall History of colonic polyps Scheduled Referrals Name Type Priority Associated Diagnoses Orde r Schedule PODIATRY REFERRAL OP Referral Within 10 days (routine) Type 2 diabetes mellitus with hemoglobin A1c goal of less than 7.5% (HCC) Callus of foot Ordered: 08/07/2022 Health Maintenance Due Date Last Done Comments COVID-19 Vaccine (#1) 1955 Depression Screening, Annual for Pts 12 and Over 02/19/2020 02/18/2019 DIABETES-EYE EXAM 06/02/2022 06/02/2021, , 11/04/2018, Additional history exists HbA1c 01/05/2023 07/06/2022, 0 10/2021, 10/19/2021, Additional history exists Albumin/Creatinine Ratio [...] 09/14/2014, 08/08/2010, 07/05/2009 Lipid Panel 07/07/2027 07/06/2022, 0 10/2021, 01/16/2022, Additional history exists Zoster Vaccines [...] as of this encounter Visit Diagnoses Diagnosis Left foot pain- Primary Pain in limb Type 2 diabetes mellitus with hemoglobin A1c goal of less than 7.5% (HCC) Porokeratosis Other specified congenital anomaly of skin documented in this encounter Advance Directives Latest [...] and were consensually agreed upon. Care Teams Progress Worker Relationship Specialty Start Date End Date Preeti Landin MD [address] [place] [address] PCP - General Internal Medicine 01/11/21 documented as of this encounter
--- OUTSIDE RECORDS SUMMARY | 2023-01-18 12:28 | External Medical Summary | Summary of Care ---
Author Name Unknown Organization [facility] Address [address] [place] [address] Phone [phone] Care Team Providers Care [employer] Name Role Phone Preeti Landin MD Primary Care Provider [phone] Reason for Referral * Evaluate & Treat - Unlimited Visits (Within 10 days (routine)) - Authorized Specialty Diagnoses / Procedures Referred By Speedy blancas Referred To Contact Podiatry Diagnoses Type 2 diabetes mellitus with hemoglobin A1c goal of less than 7.5% ([facility]) Callus of foot Preeti Landin MD [address] [place] [address] Referral ID Status Reason Start Date Expiration Date Visits Requested Visits Authorized [id number] Authorized Specialty Services Required 08/07/2022 999 999 Question Answer Referral Priority Within 10 days (routine) Which condition are you referring this patient for? General Podiatry/Other * Evaluate & Treat - Unlimited Visits (Within 30 days (routine)) - Authorized Specialty Diagnoses / Procedures Referred By Speedy blancas Referred To Contact Orthopaedic Surgery / Orthopedics Diagnoses Hip pain, left Arthritis of left hip Preeti Landin MD [address] [place] [address] Referral ID Status Reason Start Date Expiration Date Visits Requested Visits Authorized [id number] Authorized Specialty Services Required 08/07/[phone] Question Answer Referral Priority Within 30 days (routine) What body part is the patient being seen for? Hip What condition is the patient being seen for? Arthritis including related infection Reason for Visit * Reason Comments Follow Up Encounter Details Date Type Department Care Team Description 08/07/2022 Office Visit General Internal Medicine [address] [place] [address] [facility] [place] [address] Preeti Landin MD [address] [facility] [place] [address] Type 2 diabetes mellitus with hemoglobin A1c goal of less than 7.5% ([facility])*; Dyslipidemia, goal LDL below 100; Ascending aorta dilation ([facility]); HTN, goal below 140/80; Vitamin D insufficiency; DM type 2 nursing care encounter ([facility]); Encounter for long-term (current) use of medications; Hip pain, left; Arthritis of left hip; Need for hepatitis B vaccination; Callus of foot; Sprain of sacroiliac region, initial encounter Allergies Active Allergy Reactions Severity Noted Date Comments Bee Venom 04/28/2019 Empagliflozin 01/24/2022 Inc Anion gap Lisinopril Cough 11/19/2018 Imp off med Penicillin G 06/30/1997 hives documented as of this encounter (statuses as of 08/07/2022) Medications Medication Sig Dispensed Refills Start Date [...] hemoglobin A1c goal of less than 7.0% ([facility]) Take 1 Tab by mouth daily. 100 Tab 3 01/16/2018 Active ONETOUCH ULTRASOFT LANCETS MISC Use 3 times daily as directed -E11.9 100 Each 02/18/2019 Active Lancet Devices (ONETOUCH DELICA LANCING DEV) MISC Use 3 times daily as directed -E11.9 100 Each 02/18/2019 Active OneTouch Ultra Blue In Vitro Strip (Glucose Blood)Indications: Type 2 diabetes mellitus with hemoglobin A1c goal of less than 7.0% (HCC) Patient tests 2 times a day. Dx E11.9 100 Strip 5 04/01/2020 Active Glucose Blood In Vitro Strip Use 3 times daily as directed -E11.9 100 Strip 04/01/2020 Active Ozempic (1 MG/DOSE) 4 MG/3ML [...] every evening. 90 Tablet 1 08/07/2022 Active Losartan Potassium 50 MG Oral Tablet (Cozaar)Indication s:Type 2 diabetes mellitus with hemoglobin A1c goal of less than 7.5% (HCC) Take 0.5 Tablets (25 mg) by mouth every evening. 45 Tablet 1 01/24/2022 3 Discontinue d(Refill) Atorvastatin Calcium 40 MG Oral Tablet (Lipitor)Indicatio ns:Dyslipidemia, goal LDL below 100 Take 1 Tablet (40 mg) by mouth every evening. 90 Tablet 1 01/24/2022 3 Discontinue d(Refill) documented as of this encounter (statuses as of 08/07/2022) Active Problems Problem Noted Date Ascending aorta [...] as of this encounter (statuses as of 08/07/2022) Resolved Problems Problem Noted Date Resolved Date [...] as of this encounter (statuses as of 08/07/2022) Immunizations Name Administration Dates Next Due DTaP [...] Sign Reading Time Taken Comments Blood Pressure 126/70 08/07/2022 2:20 PM EDT Pulse 68 08/07/2022 2:20 PM EDT Temperature 37 C (98.6 F) 08/07/2022 2:20 PM EDT Respiratory Rate 18 08/07/2022 2:20 PM EDT Oxygen Saturation 98% 08/07/2022 2:20 PM EDT Inhaled Oxygen Concentration - - Weight 91.1 kg (200 lb 14.4 oz) 08/07/2022 2:20 PM EDT Height - - Body Mass Index 29.67 01/24/2022 3:52 PM EST documented in this encounter Patient Instructions * Patient Instructions* Munira DENISE Stephen - 08/07/2022 2:24 PM EDT Diabetes: Keeping Feet Healthy Inspect your feet every day for signs of a problem. Diabetes can damage nerves in your feet and cause neuropathy. This condition makes it hard for you to feel injuries or sore spots. Diabetes can also change blood flow, making it harder for small problems, like a blister, to heal properly. In fact, minor injuries can quickly become serious infections that send you to the hospital. Practice self-care to protect your feet and keep them healthy. Take Special Care Inspect your feet daily for problems such as redness, blisters, cracks, dry skin, or numbness. Use a mirror to see the bottoms of your feet. Or, ask for help. Manage your diabetes. Monitor and control your blood sugar. Take all your medications as prescribed. Avoid walking barefoot, even indoors. Wash your feet with warm water and mild soap. Dry well, especially between toes. Dont treat corns or calluses yourself. Talk to your doctor or hydrometer tester (a doctor who specializes in foot care) if you need assistance trimming your toenails. Use moisturizing cream or lotion if you have dry skin, but dont use it between toes. Dont use heating pads on your feet. If you have neuropathy, you could get a burn and not feel it. Stop smoking. Smoking restricts blood flow and can make it harder for wounds to heal. Have Regular Checkups Foot problems can develop quickly. So be sure to follow your healthcare teams schedule for regular checkups. During office visits, take off your shoes and socks as soon as you get in the exam room. Ask your healthcare provider to examine your feet for problems. This will make it easier to find and treat small skin irritations before they get worse. Regular checkups can also help keep track of the blood flow and feeling in your feet. If you have neuropathy, you may need to have checkups more often. Wear Proper Footwear Wearing proper footwear is very important. If areas of your feet have been damaged by too much pressure, your healthcare provider may recommend changing your footwear. In some cases, avoiding high heels or tight work boots may be all thats needed. Or, your healthcare provider may recommend special shoes or custom inserts. These help protect your feet and keep existing irritations from getting worse. If you need special footwear, ask your healthcare provider if you qualify for [employer] diabetic shoe program. Make Sure Shoes and Socks Fit Any pair of shoes--new or old--should feel comfortable as soon as you put them on. There shouldnt be any rubbing when you walk. Wear the right shoe for any activity. For instance, a running shoe is designed to keep your feet injury-free while jogging. Buy shoes at the end of the day, when your feet are larger. Make sure they provide support without feeling too loose. Make sure your socks fit, t oo. Wear soft, seamless, well-padded socks for activity. Cotton or microfiber socks are best to help to absorb sweat. To protect your feet, avoid shoes that are open-toed or open-heeled. If you have questions about what kinds of shoes and socks are best, talk to your healthcare team. Get Regular Exercise Regular exercise improves blood flow in your feet. It also increases foot strength and flexibility.Gentle exercises, like walking or riding a stationary bicycle, are best. You can also do special foot exercises. Just be sure to talk with your healthcare provider before starting any exercise program. Also mention if any exercise causes pain, redness, or other signs of foot problems. Note: If you have any kind of break in the skin of your foot or ankle, keep the area clean. Then call your doctor--especially if the area doesnt appear to be healing. 1210-1207 [employer], [address] [place] [address], [place] [address]. All rights reserved. This information is not intended as a substitute for professional medical care. Always follow your healthcare professional's instructions. documented in this encounter Progress Notes * Munira Stephen LPN - 08/07/2022 2:24 PM EDT Socks and Shoes Removed for Annual Diabetic Foot Screening RIGHT FOOT: No Reddened, Cracking, Or Open Areas Noted. RIGHT Dorsalis Pedis Pulse: Palpable RIGHT Posterior Tibial Pulse: Palpable RIGHT Monofilament:Patient reports feeling monofilament pressure on plantar surface of foot LEFT FOOT: Area of Concern painful callus left outer aspect LEFT Dorsalis Pedis Pulse: Palpable LEFT Posterior Tibial Pulse: Palpable LEFT Monofilament:Patient reports feeling monofilament pressure on plantar surface of foot Do you need diabetic shoes: No DM Foot Exam completed today. Provider aware. Munira Stephen LPN * Preeti Landin MD - 08/07/2022 2:16 PM EDT SUBJECTIVE: Eduardo Shelby is a 65 year old male. Chief Complaint Patient presents with Follow Up HPI: Patient presents for 6 mth fu I have reviewed the patient's medications and allergies, past medical, surgical, social and family history, updating these as appropriate. See Histories section of the electronic medical record for adisplay of this information. Wt Readings from Last 6 Encounters: 08/07/22 91.1 kg (200 lb 14.4 oz) 01/24/22 92.9 kg (204 lb 11.2 oz) 10/18/21 88.3 kg (194 lb 11.2 oz) 08/03/21 92.9 kg (204 lb 11.2 oz) 07/17/21 95.4 kg (210 lb 6.4 oz) 05/15/21 98.6 kg (217 lb 6.4 oz) BP Readings from Last 6 Encounters: 08/07/22 126/70 01/24/22 128/66 10/26/21 136/78 10/18/21 122/72 07/17/21 132/78 05/15/21 138/72 I saw him last in April of 2019, re-established 01/29 Patient PMH type 2 diabetes, dyslipidemia, hypertension, obesity, history of bilateral TKR History of tobacco chew Use- quit at age 29, history of heavy drinking in past, retired now, plays golf in summer does not exercise, does not follow a low carb diet FH colon cancer Colonoscopy 2010-HPP 10/2015-TAP--4 P-Dc,Tc,AC--rpt 3 yrs--:- 11/27 --moderate perianal erythema,sig tics, 1 mm polyp transverse colon removed-TAP,, repeat in 5years--11/2023 Urine for microalbumin negative, eye exam up-to-date, foot exam up-to-date. On ARB. EYE exam--06/30 [facility], had exam 2 wks ago Fasting sugar <120,does not ch PPBS. States he does not feel good if It goes below ,130 no symptoms of hypoglycemia At preop EKG>04/2019--abn--ectopic atrial rhythm, an age undetermined inferior infarction cannot be excluded with Q-waves noted in the inferior leads II, III, AVF, inverted T-waves noted in the inferior leads.-- ordered stress test, referred to Cardiology, saw Dr. Kelly, he was cleared for surgery then, recommended repeat echo or CT chest in 1-2 years to follow-up on the borderline enlargement of the ascending aorta. 11/05/21--echo-Echo same changes from 2 years ago.-normal EF, proximal ascending aorta enlarged sameat 3.8 cm --Interpretation Summary The examination is adequate to evaluate the referral indication. The qualitative LV ejection fraction is 60-64% (normal). The LV wall thickness is mildly increased (concentric). The left ventricular wall motion is normal. The left ventricular diastolic function is mildly abnormal (grade I). There is moderate focal calcification of the left coronary cusp. Aortic stenosis is absent. Mild mitral regurgitation is present. The aortic root is normal sized. The proximal ascending thoracic aorta is borderline enlarged, 3.8 cm. --repeat in 2 yrs Screening PSA-01/26-nml cbc,alt,ldl,ferritin,testosterone, tsh, psa Hydrocele--nelia--had Rt excised in 2015, drained Left in 10/26 --no recurrence. +nocturia x 3,no difficulty with stream of urine., no incontinence or hematuria H/o ED-complains of difficulty getting erection, viagra did not help-think Cialis helped and is requesting a prescription. Labs.--nl 01/26/1907/30--try cialis 10mg>>had urology f/u 08/03/21--chg to 5mg daily AAA screen, history of tobacco use.--neg at 2.2cm 01/17/21 RT cubital tunnel syndrome status post release by Dr. Marte on 10/26/2020, he had symptoms of numbness of his right hand since 03/31, also had atrophy of the interossei muscles., completed physical therapy at [facility],had Ortho f/u in February. 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 05/30-Complains of numbness/tingling in the toes/bottom of his feet when he is sitting down in the evenings, resolves when he gets up and walks, denies any symptoms at night or during the day, no creepy crawly sensation in his legs. B12 , TSH normal in December.-will recheck labs with routine labs in July. Discussed option of tryinglow-dose gabapentin, willing. During the exam when he took his a jacket off noticed a skin nodule on his right forearm, states hehas had for more than 6 months, thought it was related to a bug bite, and he scratches area often. He golfs a lot but does not wear any sunscreen. Apply suncreen SPF>30 30 min prior to going out in sun. --appt 01/02/22--looks more flat today 07/17/2021 and 10/30 07/30-weight as above. Denies symptoms of chest pain shortness of breath or palpitations. Numbness in the feet have been improved with gabapentin taking 2 to 3 times a week. Today complains of low back pain on the left side, no radiation down the leg. No weakness or numbness of the extremities. History of bilateral knee replacement in the past. Wishes to see chiropractor. No previous x-ray of LS spine on file ---mild diffuse ddd. 10/30>taking gabapentin rarely now.noted hi AG 07/31--c/o pain Left low back--st had inj in past with relief--saw ortho 2020 had HC inj left hip, will refer back. No sx sciatica, not worse with walking. Taking advil 4 tabs 4d/week. 11/06/21-has dec bicarb with AG since on jardiance-checked with endo on ask-a-doc C peptide is normal. BMP shows evidence of slight dehydration, bicarb is improved to 21, anion gap is normal., random sugar was 206. Urinalysis-UA very concentrated with SG 1.034, trace ketones, glucose greater than 1000. --he needs to increase intake of fluids 10 cups per day. we -Discontinue Jardiance, increase glipizide to 10 mg twice daily, changed to XL formulation --rx sent. -01/30-fbs 111, no hypoglycemia, bmp better 07/31-a1c lower , fbs 61-, bicarb 21, ag nml last 3 -denies sx,-decrease dose of glipizide to 10+5 mg daily--new Rx sent for 5 mg tabs, slow wt loss, started playing golf again, eating less junk food At home fbs 115-120 Denies CP/sob/palpitations/cough/constipation/diarrhoea/blood in stools or urine. C/o ?callus left foot Had COVID-19 vaccine, does not have his card with him hepatitis B vaccine 3 today Immunization History Administered Date(s) Administered DTaP - Dipth/Tet/Acell Pertussis 07/05/2009, 08/08/2010 Hepatitis B, 20+ yrs 01/24/2022, 02/28/2022 Pneumococcal Conjugate Vacc, 13 Valent (Prevnar) 03/24/2020 Pneumococcal Polysaccharide PPV23 (Pneumovax) 02/06/2013, 05/15/2021 Seasonal Influenza, Quadrivalent Hd (Fluzone Hd) 12/14/2020, 11/27/2021 Seasonal Influenza, Quadrivalent, No Preserve, 6 Mons & Above, IM 01/08/2018, 11/19/2018, 11/30/2019 Seasonal Influenza, Quadrivalent, No Preserve, IM 12/10/2017 Seasonal Influenza, Split, IIV3, With Preserve, Inj 12/09/2012, 02/11/2014, 01/07/2015, 12/10/2015, 01/07/2017 TDAP (age 10 and older)(Boostrix) 09/14/2014 Varicella Zoster Vaccine (Adult) 04/23/2016 Zoster Vaccine Recombinant (Shingrix) 11/19/2018, 02/18/2019 Hemoglobin AIC Results: Lab Results Component Value Date/Time HEMOGLOBIN A1C - [facility] 5.8 (H) 07/06/2022 08:19 AM HEMOGLOBIN A1C - [facility] 6.3 (H) 01/16/2022 07:07 AM HEMOGLOBIN A1C - [facility] 6.2 (H) 10/19/2021 07:04 AM HEMOGLOBIN A1C - [facility] 7.6 (H) 10/28/2019 03:56 PM HEMOGLOBIN A1C - [facility] 7.8 (H) 05/27/2019 08:50 AM HEMOGLOBIN A1C - [facility] 7.9 (H) 02/23/2019 12:45 PM Hemoglobin Results: Lab Results Component Value Date/Time HGB 15.1 04/20/1996 10:50 AM HGB - [facility] 13.4 (L) 07/14/2021 07:04 AM HGB - [facility] 13.5 (L) 01/04/2021 07:45 AM HGB - [facility] 14.2 04/23/2019 09:54 AM HGB - [facility] 12.9 (L) 02/23/2019 12:45 PM HGB - [facility] 13.0 (L) 11/13/2018 12:10 PM TSH Results: Lab Results Component Value Date/Time TSH - [facility] 3.45 01/04/2021 07:45 AM TSH - [facility] 3.26 01/16/2018 11:16 AM TSH - [facility] 1.84 02/26/2014 02:35 PM TSH - [facility] 2.60 11/07/2012 08:55 AM PSA Results: Lab Results Component Value Date/Time PSA - [facility] 2.32 07/14/2021 07:04 AM PSA - [facility] 2.74 01/16/2018 11:16 AM PSA SCREENING 2.06 10/16/2007 03:15 PM PSA SCREENING 1.78 10/10/2006 10:21 AM Results for orders placed or performed in visit on 07/06/22 BASIC METABOLIC PANEL Result Value Ref Range BUN 18 6 - 20 mg/dL Creatinine 1.0 0.6 - 1.2 mg/dL Estimated Glomerular Filtration Rate 79 >=60 mL/min Sodium 142 135 - 146 mmol/L Potassium 4.1 3.5 - 5.1 mmol/L Chloride 106 98 - 107 mmol/L CO2 21 (L) 22 - 32 mmol/L Anion Gap 15 7 - 15 mmol/L Glucose 61 (L) 70 - 120 mg/dL Calcium 9.0 8.4 - 10.2 mg/dL ALT Result Value Ref Range ALT 25 10 - 50 U/L HEMOGLOBIN A1C Result Value Ref Range Hemoglobin A1C 5.8 (H) 4.0 - 5.6 % Estimated Average Glucose 120 <126 mg/dL LDL CHOLESTEROL (DIRECT MEASURE) Result Value Ref Range LDL Cholesterol (Direct Measure) 43 <=129 mg/dL VITAMIN B12 Result Value Ref Range Vitamin B12 731 232 - 1,245 pg/mL MYCODE SST1 Result Value Ref Range MyCode Specimen Freezing of extracted DNA, whole blood and/or serum. MYCODE SST2 Result Value Ref Range MyCode Specimen Freezing of extracted DNA, whole blood and/or serum. 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 100 Tab 3 Atorvastatin Calcium 40 MG Oral Tablet (Lipitor) Take 1 Tablet (40 mg) by mouth every evening. 90 Tablet 1 EPINEPHrine, anaphylaxis, (EPI-PEN) 0.3 MG/0.3ML SOAJ injection For a severe reaction: Place orange end against the outer thigh, press firmly, hold in place for 10 seconds and go to the Emergencyroom. 2 Device 3 Gabapentin 100 MG Oral Capsule (Neurontin) TAKE 1 CAPSULE BY MOUTH AT 8 PM. START 05/15/21 30 Capsule 2 glipiZIDE ER 10 MG Oral Tablet Extended Release 24 Hour (glipiZIDE XL) Take 1 Tablet by mouth daily before dinner. 30 minutes before a meal. with 5mg tab - dec dose from 07/13/2022 90 Tablet 1 glipiZIDE ER 5 MG Oral Tablet Extended Release 24 Hour (glipiZIDE XL) Take 1 Tablet by mouth daily before dinner. 30 minutes before a meal. With 10 mg tab - dec dose from 07/13/2022 90 Tablet 1 Glucose Blood In Vitro Strip Use 3 times daily as directed -E11.9 100 Strip 11 Ibuprofen 200 MG Oral Tablet (Motrin IB) Take 2 Tablets (400 mg) by mouth 2 times a day as needed for Pain, Moderate. 50 Tablet 1 Lancet Devices (ONETOUCH DELICA LANCING DEV) MISC Use 3 times daily as directed -E11.9 100 Each11 Losartan Potassium 50 MG Oral Tablet (Cozaar) Take 0.5 Tablets (25 mg) by mouth every evening. 45 Tablet 1 metFORMIN HCl ER 500 MG Oral Tablet Extended Release 24 Hour (Glucophage XR) TAKE 4 TABLETS BY MOUTH EVERY DAY WITH DINNER 360 Tablet 3 OneTouch Ultra Blue In Vitro Strip (Glucose Blood) Patient tests 2 times a day. Dx E11.9 100 Strip 5 ONETOUCH ULTRASOFT LANCETS MISC Use 3 times daily as directed -E11.9 100 Each 11 Ozempic (1 MG/DOSE) 4 MG/3ML Subcutaneous Solution Pen-injector (Semaglutide (1 MG/DOSE)) INJECT UNDER THE SKIN 1 MG ONCE A WEEK . DX:E11.9 9 mL 3 Tadalafil 5 MG Oral Tablet (Cialis) Take 1 Tablet (5 mg) by mouth in the morning. 30 Tablet 5 No current facility-administered medications for this visit. Past Medical History: Diagnosis Date Allergic rhinitis [...] (RECTUM) 10/28/2015 adenomatous polyps, diverticulosis, repeat 3 yrs/[facility] COLONOSCOPY, DIAGNOSTIC (RECTUM) 11/07/2018 diverticulosis sigmoid colon/biopsies show adenomatous polyps/recall 5 years/FLEXIBLE PROXIMAL DIAGNOSTIC performed by Lizeth Walsh MD at ENDOSCOPY [facility] ELBOW ARTHROSCOPY/REMOVE OBJECT Right 05/20/2019 ARTHROSCOPY ELBOW WITH REMOVAL LOOSE BODY performed by Breanna Marte DO at OR [facility] EXPLORATION OF SCROTUM Right 01/26/2016 ADULT SCROTAL EXPLORATION performed by Reena Murillo MD at OR [facility] EXPLORE PENETRATING WND, ABDMN/BACK Right 03/02/2016 EXPLORATION OF PENETRATING WOUND ABDOMEN FLANK OR BACK performed by Reena Murillo MD at OR [facility] KNEE ARTHROSCOPY/MENISCUS REPAIR 2004 right and left - Dr. Rivers MANIPULATE ELBOW W/ANESTH Right 05/20/2019 MANIPULATION ELBOW WITH ANESTHESIA performed by Breanna Marte DO at OR [facility] OPEN WOUND DEBRIDEMENT UP TO 20 CM2 Right 03/02/2016 OPEN WOUND DEBRIDEMENT UP TO 20 CM2 performed by Reena Murillo MD at OR [facility] RELEASE ELBOW JOINT Right 05/20/2019 ARTHROTOMY ELBOW WITH CAPSULAR EXCISION FOR CAPSULAR RELEASE performed by Breanna Marte DO at OR [facility] REMOVAL OF APPENDIX age 11 REMOVAL OF HYDROCELE, UNILATERAL Right 12/23/2015 EXCISION HYDROCELE UNILATERAL performed by Reena Murillo MD at OR [facility] REVISION OF ULNAR NERVE AT ELBOW Right 10/26/2020 NEUROPLASTY AND OR TRANSPOSITION ULNAR NERVE ELBOW performed by Breanna Marte DO at OR [facility] US SCROTUM/TESTES 09/26/06 bilateral hydrocele Review of patient's allergies indicates: Allergen Reactions Bee Venom Jardiance [Empagliflozin] Inc Anion gap Lisinopril Cough Imp off med Penicillin G hives Family History Problem Relation Age of Onset Heart Disorder Mother Cancer Father 83 colon No Known Problems Sister No Known Problems Sister No Known Problems Sister No Known Problems Brother Social History Tobacco Use Smoking status: Never Smokeless tobacco: Former Types: Snuff Vaping Use Vaping Use: Never used Substance Use Topics Alcohol use: Not Currently Alcohol/week: 66.7 standard drinks Types: 80 12 oz of beer per week 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 OBJECTIVE: BP 126/70 | Pulse 68 | Temp 37 C (98.6 F) (Tympanic) | Resp 18 | Wt 91.1 kg (200 lb 14.4 oz) | SpO2 98% | BMI 29.67 kg/m | BSA 2.11 m PHYSICAL EXAM: General: alert, healthy, no distress, well nourished and well developed Head: Normocephalic, atraumatic Neck: supple, no adenopathy, no bruits, no JVD, thyroid normal size, non-tender, without nodularity Heart: regular Rhythm and rate, no murmurs. 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 Back-+TTP left SI jt Rt hand-atrophy of the interossei muscle 1st greater than the others. 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 - PODIATRY REFERRAL OP ct current meds Repeat Fasting labs 2-5 days before next Appointment. Dyslipidemia, goal LDL below 100 - Atorvastatin Calcium 40 MG Oral Tablet (Lipitor); Take 1 Tablet by mouth every evening. Ascending aorta dilation (HCC) Stable echo in 2 yrs HTN, goal below 140/80 At goal Vitamin D insufficiency ct current meds DM type 2 nursing care encounter (HCC) - DIABETES FOOT EXAM Encounter for long-term (current) use of medications - VITAMIN B12; Future; Expected date: 02/07/2023 Hip pain, left - ORTHOPAEDICS REFERRAL OP Arthritis of left hip - ORTHOPAEDICS REFERRAL OP Need for hepatitis B vaccination Dose 3 today Callus of foot - PODIATRY REFERRAL OP Use soft callus/corn pads. Sprain of sacroiliac region, initial encounter - XR SACROILIAC JOINTS 3 OR MORE VIEWS; Future; Expected date: 08/07/2022 Consider PT if n/b with short term nsaids. Follow Up: Return in about 6 months (around 02/07/2023) for Return with Physician, Fasting Labs 2-5Days Before Next Visit. | For: Return with Physician, Fasting Labs 2-5 Days Before Next Visit | Check-out note: 40 min cpe Preeti Landin MD 08/07/2022 documented in this encounter Nursing Notes * Munira Stephen LPN - 08/07/2022 2:20 PM EDT Eduardo Shelby presents for 6 month recheck. Medications & HM reviewed. Says he has a callus or something on the bottom of his left foot that kills him when he walks on a hard surface in his bare feet. documented in this encounter Plan of Treatment Upcoming Encounters Date Type Specialty Care Team Description 08/09/2022 Office Visit Podiatry Carla Barber DPM [address] [facility] [place] [address] 08/10/2022 Telemedicine Urology Fabian Parra MD [address] [place] [address] [place] [address] 7, Telemed [facility] Urology Ex [address] [place] [address] 08/24/2022 Office Visit Orthopedics Rigoberto Espinosa MD [address] [facility] [place] [address] 02/07/2023 Office Visit Internal Medicine Preeti Landin MD [address] [place] [address], [place] [address] Pending Results Name Type Priority Associated Diagnoses Date /Time XR SACROILIAC JOINTS 3 OR MORE VIEWS Medical Imaging Routine Sprain of sacroiliac region, initial encounter 08/07/2022 3:42 PM EDT Scheduled Orders Name Type Priority Associated Diagnoses Orde r Schedule VITAMIN B12 Lab Routine Type 2 diabetes mellitus with hemoglobin A1c goal of less than 7.5% (HCC) Encounter for long-term (current) use of medications Expected: 02/07/2023 (Approximate), Expires: 08/08/2023 XR SACROILIAC JOINTS 3 OR MORE VIEWS Medical Imaging Routine Sprain of sacroiliac region, initial encounter Expected: 08/07/2022, Expires: 09/08/2023 Scheduled Procedures Name Priority Associated Diagnoses Date/Ti me COLONOSCOPY FLEXIBLE PROXIMA L DIAGNOSTIC Recall History of colonic polyps Scheduled Referrals Name Type Priority Associated Diagnoses Order Schedule ORTHOPAEDICS REFERRAL OP Referral Within 30 days (routine) Hip pain, left Arthritis of left hip Ordered: 08/07/2022 PODIATRY REFERRAL OP Referral Within 10 d ays (routine) Type 2 diabetes mellitus with hemoglobin A1c goal of less than 7.5% (HCC) Callus of foot Ordered: 08/07/2022 Health Maintenance Due Date Last Done Comments COVID-19 Vaccine (#1) 1955 Depression Screening, Annual for Pts 12 and Over 02/19/2020 02/18/2019 DIABETES-EYE EXAM 06/02/2022 06/02/2021, , 11/04/2018, Additional history exists HbA1c 01/05/2023 07/06/2022, 110 10/2021, 10/19/2021, Additional history exists Albumin/Creatinine Ratio 01/16/202301/16/2 022, 01/04/2021, 10/28/2019, Additional history exists GFR 07/07/2023 07/06/2022, 11/0 10/2021, 10/31/2021, Additional history exists Yearly B-12 07/07/2023 07/06/2022, 05/0 08/2021, 01/04/2021, Additional history exists DIABETES-FOOT EXAM 08/08/2023 08/07/2022, 0 07/17/2021, 09/03/2020, Additional history exists COLONOSCOPY-EVERY 5 YRS AGES 18-100 11/08/2023 11/07/2018, 11/07/2018, 10/28/2015 DTaP,Tdap,and Td Vaccines (4 - Td or Tdap) 09/14/2024 09/14/2014, 08/08/2010, 07/05/2009 Lipid Panel 07/07/2027 07/06/2022, 11/10/2021, 01/16/2022, Additional history exists Zoster Vaccines Completed [...] hemoglobin A1c goal of less than 7.5% (HCC)- Primary Dyslipidemia, goal LDL below 100 Other and unspecified hyperlipidemia Ascending aorta dilation (HCC) Thoracic aortic ectasia HTN, goal below 140/80 Unspecified essential hypertension Vitamin D insufficiency Unspecified vitamin D deficiency DM type 2 nursing care encounter (HCC) Type II or unspecified type diabetes mellitus without mention of complication, not stated as uncontrolled Encounter for long-term (current) use of medications Encounter for long-term (current) use of other medications Hip pain, left Pain in joint, pelvic region and thigh Arthritis of left hip Need for hepatitis B vaccination Need for prophylactic vaccination and inoculation against viral hepatitis Callus of foot Corns and callosities Sprain of sacroiliac region, initial encounter documented in this encounter Advance Directives Latest [...] and were consensually agreed upon. Care Teams Thermo Processor Relationship Specialty Start Date End Date Preeti Landin MD [address] [place] [address], [place] [address] PCP - General Internal Medicine 01/11/21 documented as of this encounter"
--- OUTSIDE RECORDS SUMMARY | 2023-01-18 12:28 | External Medical Summary | Summary of Care ---
Author Name Unknown Organization [facility] Address [address] [facility] [place] [address] Phone [phone] Care Team Providers Care Authors Motivational Name Role Phone Preeti Landin MD Primary Care Provider [phone] Reason for Visit * Reason Onset Date Comments Referral 07/30/2022 Encounter Details Date Type Department Care Team Description 07/30/2022 Telephone General Internal Medicine [facility] [address] [place] [address] Preeti Landin MD 200 [place] [address] Referral Allergies Active Allergy Reactions Severity Noted Date Comments Bee Venom 04/28/2019 Empagliflozin 01/24/2022 Inc Anion gap Lisinopril Cough 11/19/2018 Imp off med Penicillin G 06/30/1997 hives documented as of this encounter (statuses as of 08/02/2022) Medications Medication Sig Dispensed Refills Start Date [...] . DX:E11.9 9 mL 3 01/10/2022 Active Losartan Potassium 50 MG Oral Tablet (Cozaar)Indications: Type 2 diabetes mellitus with hemoglobin A1c goal of less than 7.5% (HCC) Take 0.5 Tablets (25 mg) by mouth every evening. 45 Tablet 1 01/24/2022 Active Atorvastatin Calcium 40 MG Oral Tablet (Lipitor)Indications :Dyslipidemia, goal LDL below 100 Take 1 Tablet (40 mg) by mouth every evening. 90 Tablet 1 01/24/2022 Active Ibuprofen 200 MG Oral Tablet (Motrin [...] from 07/13/2022 90 Tablet 1 07/12/2022 Active documented as of this encounter (statuses as of 08/02/2022) Active Problems Problem Noted Date Ascending aorta [...] as of this encounter (statuses as of 08/02/2022) Resolved Problems Problem Noted Date Resolved Date [...] as of this encounter (statuses as of 08/02/2022) Immunizations Name Administration Dates Next Due DTaP - Dipth/Tet/Acell Pertussis 08/08/2010,06/10 Hepatitis B, 20+ yrs 02/28/2022,01/24/2022 Pneumococcal Conjugate Vacc, 13 Valent (Prevnar) 03/24/2020 [...] encounter Miscellaneous Notes * Telephone Encounter - GARTH Ellison - 08/02/2022 3:20 PM EDT Urology department calling asking for referral to please be placed for patient. * Telephone Encounter - Ed Lemus, GARTH - 07/31/2022 2:17 PM EDT Pt is scheduled for urology appt on 08/10 * Telephone Encounter - Ban Ngo, GARTH - 07/30/2022 1:51 PM EDT Has the patient been seen for this problem? (Y/N)?: yes If No, an appt needs to be scheduled before a referral will be placed (exception: proceed with referral request if referral request is for a yearly routine appointment with speciality) Patient Name: Eduardo Shelby Patient Primary care provider: Preeti Landin MD Does this need to be an insurance referral (Y/N)?: yes If Yes, does the insurance referral need to be placed into the [employer] system? Name of preferred specialist: Dr Parra Type of specialist: Urology Location of specialist: [facility] Phone #: [phone] Specialist's Fax #: Reason for visit: One year return Date of visit: August 10, 2022 documented in this encounter Plan of Treatment Upcoming Encounters Date Type Specialty Care Team Description 08/07/2022 Office Visit Internal Medicine Preeti Landin MD [address] [place] [address], [place] [address] 08/10/2022 Telemedicine Urology Fabian Parra MD [address] [place] [address] [place] [address] 7, Telemed [facility] Urology Ex R[address] [place] [address] Scheduled Procedures Name Priority Associated Diagnoses Date/Ti me COLONOSCOPY FLEXIBLE PROXIMA L DIAGNOSTIC Recall History of colonic polyps Health Maintenance Due Date Last Done Comments COVID-19 Vaccine (#1) 1955 Depression Screening, Annual for Pts 12 and Over 02/19/2020 02/18/2019 DIABETES-EYE EXAM 06/02/2022 06/02/2021, , 11/04/2018, Additional history exists DIABETES-FOOT EXAM 07/17/2022 07/17/2021, 0 09/03/2020, 10/28/2019, Additional history exists Hepatitis B (3 of 3 - 19+ 3-dose series) 07/29/2022 02/28/2022, 01/24/2022 HbA1c 01/05/2023 07/06/2022, 110 10/2021, 10/19/2021, Additional history exists Albumin/Creatinine Ratio 01/16/2023 022, 01/04/2021, 10/28/2019, Additional history exists GFR 07/07/2023 07/06/2022, 110 10/2021, 10/31/2021, Additional history exists Yearly B-12 07/07/2023 07/06/2022, 05/0 08/2021, 01/04/2021, Additional history exists COLONOSCOPY-EVERY 5 YRS AGES 18-100 11/08/2023 11/07/2018, 11/07/2018, 10/28/2015 DTaP,Tdap,and Td Vaccines (4 - Td or Tdap) 09/14/2024 09/14/2014, 08/08/2010, 07/05/2009 Lipid Panel 07/07/2027 07/06/2022, 11/0 10/2021, 01/16/2022, Additional history exists Zoster Vaccines Completed 02/18/2019, 11/09, 04/23/2016 Pneumococcal Vaccine: 65+ Years Completed 05/15/2021, 03/24/2020, 02/06/2013 Influenza Vaccine (FLU shot) Completed , 12/14/2020, 11/30/2019, Additional history exists GARDASIL-HPV IMMUNIZATION SERIES Aged Out No longer [...] and were consensually agreed upon. Care Teams Authors Motivational Relationship Specialty Start Date End Date Preeti Landin MD 200 [place] [address] PCP - General Internal Medicine 01/11/21 documented as of this encounter
--- OUTSIDE RECORDS SUMMARY | 2023-01-18 12:28 | External Medical Summary | Summary of Care ---
Author Name Unknown Organization [facility] Address [address] [place] [facility] [place] [place] [place] [address] Phone [phone] Care Team Providers Care Supply And Distribution Manager Name Role Phone Preeti Landin MD Primary Care Provider [phone] Reason for Referral * Evaluate & Treat - Unlimited Visits (Within 10 days (routine)) - Authorized Specialty Diagnoses / Procedures Referred By Speedy blancas Referred To Contact Urology Diagnoses Erectile dysfunction, unspecified erectile dysfunction type Preeti Landin MD 200 [facility] [place] [address] Referral ID Status Reason Start Date Expiration Date Visits Requested Visits Authorized [id number] Authorized Specialty Services Required 08/07/2022 999 999 Question Answer Referral Priority Within 10 days (routine) What is the patient being referred for? ED Reason for Visit * Reason Onset Date Comments Referral 07/30/2022 Encounter Details Date Type Department Care Team Description 07/30/2022 Telephone General Internal Medicine [facility] [address] [place] [address] Preeti Landin MD 200 [facility] [place] [address] Referral Allergies Active Allergy Reactions Severity Noted [...] as of this encounter Miscellaneous Notes * Addendum Note - Preeti Landin MD - 08/07/2022 1:16 PM EDTAddended by: PREETI LANDIN on: 08/07/2022 01:16 PM Modules accepted: Orders * Addendum Note - Manav Griffith LPN - 08/03/2022 3:07 PM EDTAddended by: MANAV GRIFFITH on: 08/03/2022 03:07 PM Modules accepted: Orders * Telephone Encounter - GARTH Ellison - 08/02/2022 3:20 PM EDT Urology department calling asking for referral to please be placed for patient. * Telephone Encounter - GARTH Farnsworth - 07/31/2022 2:17 PM EDT Pt is scheduled for urology appt on 08/10 * Telephone Encounter - GARTH Carrion - 07/30/2022 1:51 PM EDT Has the [...] referral need to be placed into the [employer] system? Name of preferred specialist: Dr Parra Type of specialist: Urology Location of specialist: [facility] Phone #: [phone] Specialist's Fax #: Reason for visit: One year return Date of visit: August 10, 2022 documented in this encounter Plan of Treatment Upcoming Encounters Date Type Specialty Care Team Description 08/07/2022 Office Visit Internal Medicine Preeti Landin MD 200 [facility] [place] [address] 08/10/2022 Telemedicine Urology Fabian Parra MD 27 [facility] [address] [place] [id number] 7, Telemed [facility] Urology Ex Rm [address] [facility] [place] [address] Scheduled Procedures Name Priority Associated Diagnoses Date/Ti me COLONOSCOPY FLEXIBLE PROXIMA L DIAGNOSTIC Recall History of colonic polyps Scheduled Referrals Name Type Priority Associated Diagnoses Orde r Schedule UROLOGY REFERRAL OP Referral Within 10 da ys (routine) Erectile dysfunction, unspecified erectile dysfunction type Ordered: 08/07/2022 Health Maintenance Due Date Last [...] Additional history exists Yearly B-12 07/07/2023 07/06/2022, 050 08/2021, 01/04/2021, Additional history exists COLONOSCOPY-EVERY 5 [...] as of this encounter Visit Diagnoses Diagnosis Erectile dysfunction, unspecified erectile dysfunction type- Primary documented in this encounter Advance Directives Latest [...] and were consensually agreed upon. Care Teams Supply And Distribution Manager Relationship Specialty Start Date End Date Preeti Landin MD [address] [place] [address] PCP - General Internal Medicine 01/11/21 documented as of this encounter
--- OUTSIDE RECORDS SUMMARY | 2023-01-18 12:28 | External Medical Summary | Summary of Care ---
Author Name Unknown Organization [facility] Address [address] [facility] [place] [address] Phone [phone] Care Team Providers Care Director Critical Care Name Role Phone Preeti Landin MD Primary Care Provider [phone] Reason for Visit * Reason Onset Date Comments Referral 07/30/2022 Encounter Details Date Type Department Care Team Description 07/30/2022 Telephone General Internal Medicine [facility] 200 [facility] [place] [address] Preeti Landin MD 200 [place] [address] Referral Allergies Active Allergy Reactions Severity Noted Date Comments Bee Venom 04/28/2019 Empagliflozin 01/24/2022 Inc Anion gap Lisinopril Cough 11/19/2018 Imp off med Penicillin G 06/30/1997 hives documented as of this encounter (statuses as of 08/03/2022) Medications Medication Sig Dispensed Refills Start Date [...] as of this encounter (statuses as of 08/03/2022) Active Problems Problem Noted Date Ascending aorta [...] as of this encounter (statuses as of 08/03/2022) Resolved Problems Problem Noted Date Resolved Date [...] as of this encounter (statuses as of 08/03/2022) Immunizations Name Administration Dates Next Due DTaP [...] encounter Miscellaneous Notes * Addendum Note - Manav Griffith LPN [...] referral need to be placed into the [employer] system? Name of preferred specialist: Dr Parra Type of specialist: Urology Location of specialist: [facility] Phone #: [phone] Specialist's Fax #: Reason for visit: One year return Date of visit: August 10, 2022 documented in this encounter Plan of Treatment Upcoming Encounters Date Type Specialty Care Team Description 08/07/2022 Office Visit Internal Medicine Preeti Landin MD 200 [facility], [place] [id number] 08/10/2022 Telemedicine Urology Fabian Parra MD [address] [place] [address] [place] [address] 7, Telemed [facility] Urology Ex R[address] [place] [address] Scheduled Procedures Name Priority Associated Diagnoses Date/Ti [...] and were consensually agreed upon. Care Teams Director Critical Care Relationship Specialty Start Date End Date Preeti Landin MD 200 [facility] [place] [address] PCP - General Internal Medicine 01/11/21 documented as of this encounter
--- OUTSIDE RECORDS SUMMARY | 2023-01-18 12:28 | External Medical Summary | Summary of Care ---
Author Name Unknown Organization [facility] Address [address] [facility] [place] [address] Phone [phone] Care Team Providers Care Control Manager Name Role Phone Preeti Landin MD Primary Care Provider [phone] Reason for Visit * Reason Onset Date Comments Referral 07/30/2022 Encounter Details Date Type Department Care Team Description 07/30/2022 Telephone General Internal Medicine [facility] 200 [place] [address] Preeti Landin MD 200 [place] [address] Referral Allergies Active Allergy Reactions Severity Noted Date Comments Bee Venom 04/28/2019 Empagliflozin 01/24/2022 Inc Anion gap Lisinopril Cough 11/19/2018 Imp off med Penicillin G 06/30/1997 hives documented as of this encounter (statuses as of 07/31/2022) Medications Medication Sig Dispensed Refills Start Date [...] as of this encounter (statuses as of 07/31/2022) Active Problems Problem Noted Date Ascending aorta [...] as of this encounter (statuses as of 07/31/2022) Resolved Problems Problem Noted Date Resolved Date [...] as of this encounter (statuses as of 07/31/2022) Immunizations Name Administration Dates Next Due DTaP [...] Miscellaneous Notes * Telephone Encounter - GARTH Farnsworth - [...] referral need to be placed into the [employer] system? Name of preferred specialist: Dr Parra Type of specialist: Urology Location of specialist: [facility] Phone #: [phone] Specialist's Fax #: Reason for visit: One year return Date of visit: August 10, 2022 documented in this encounter Plan of Treatment Upcoming Encounters Date Type Specialty Care Team Description 08/07/2022 Office Visit Internal Medicine Preeti Landin MD [address] [place] [address] 08/10/2022 Telemedicine Urology Fabian Parra MD 27 [facility] [address] [place] [address] 7, Telemed [facility] Urology Ex Rm [address] [facility] [place] [address] Scheduled Procedures Name Priority Associated Diagnoses Date/Ti [...] series) 07/29/2022 02/28/2022, 01/24/2022 HbA1c 01/05/2023 07/06/2022, 11/0 10/2021, 10/19/2021, Additional [...] and were consensually agreed upon. Care Teams Control Manager Relationship Specialty Start Date End Date Preeti Landin MD [address] [place] [address], [place] [address] PCP - General Internal Medicine 01/11/21 documented as of this encounter
--- OUTSIDE RECORDS SUMMARY | 2023-01-18 12:29 | External Medical Summary | Summary of Care ---
Author Name Unknown Organization [facility] Address [address] [facility] [place] [address] Phone [phone] Care Team Providers Care Die Cut Operator Name Role Phone Preeti Landin MD Primary Care Provider [phone] Reason for Visit * Reason Comments eRx-Medication Refill Encounter Details Date Type Department Care Team Description 07/30/2022 Refill General Internal Medicine [facility] 200 [place] [address] Preeti Landin MD 200 [place] [address] Type 2 diabetes mellitus with hemoglobin A1c goal of less than 7.5% (HCC) Allergies Active Allergy Reactions Severity Noted Date Comments Bee Venom 04/28/2019 Empagliflozin 01/24/2022 Inc Anion gap Lisinopril Cough 11/19/2018 Imp off med Penicillin G 06/30/1997 hives documented as of this encounter (statuses as of 07/30/2022) Medications Medication Sig Dispensed Refills Start Date [...] WITH DINNER 360 Tablet 3 07/30/2022 Active metFORMIN HCl ER 500 MG Oral Tablet Extended Release 24 Hour (Glucophage XR)Indications:Typ e 2 diabetes mellitus with hemoglobin A1c goal of less than 7.5% (HCC) TAKE 4 TABLETS BY MOUTH EVERY DAY with dinner 360 Tablet 3 07/17/2021 3 Discontinued documented as of this encounter (statuses as of 07/30/2022) Active Problems Problem Noted Date Ascending aorta [...] as of this encounter (statuses as of 07/30/2022) Resolved Problems Problem Noted Date Resolved Date [...] as of this encounter (statuses as of 07/30/2022) Immunizations Name Administration Dates Next Due DTaP [...] encounter Miscellaneous Notes * Telephone Encounter - Trevin Pina RPh - 07/30/2022 3:18 PM EDTSigned Prescriptions: Disp Refills metFORMIN HCl ER 500 MG Oral Tablet Extend*360 Ta*3 Sig: TAKE 4 TABLETS BY MOUTH EVERY DAY WITH DINNERAuthorizing Provider: Bety LANDIN User: JOHAN PINA documented in this encounter Plan of Treatment Upcoming Encounters Date Type Specialty Care Team Description 07/30/2022 Nurse Only Ancillary Nurse Tigre Mares [address] [place] [address] 08/07/2022 Office Visit Internal Medicine Preeti Landin MD [address] [place] [address] 08/10/2022 Telemedicine Urology Fabian Parra MD [address] [place] [address] [place] [address] 7, Telemed [facility] Mares Urology Ex Rm [address] [place] [address] Scheduled Procedures Name Priority Associated Diagnoses Date/Ti [...] hemoglobin A1c goal of less than 7.5% ([facility]) documented in this encounter Advance Directives Latest [...] and were consensually agreed upon. Care Teams Die Cut Operator Relationship Specialty Start Date End Date Preeti Landin MD [address] [place] [address], [place] [address] PCP - General Internal Medicine 01/11/21 documented as of this encounter
--- NOTE | 2023-01-18 13:21 | Orthopedic Progress Note ---
Date of Service January 18, 2023 Assessment & Plan (1) Lumbar disc herniation with radiculopathy: Plan: This time continue physical therapy monitor his CHRISTINA output of the discharge home next few days. Admission and Anticipated Discharge Date Admission Date: January 15, 2023 Subjective Back pain controlled leg symptoms markedly improved Physical Exam Physical Exam: Patient is comfortable. Is good strength testing. Results & Data Vital Signs (Past 12 Hours) Vital Signs Temp Pulse Resp BP BP Pulse Ox O2 Del Method 01/18/23 09:07 113/69 01/18/23 07:58 87/59 L 01/18/23 07:35 36.9 C 72 16 121/75 93 Room Air 01/18/23 05:29 64 01/18/23 05:27 100/61 01/18/23 03:18 37.0 C 59 L 16 97/61 L 95 Room Air
[2023-01-18] MEDS ORDERED: MAGNESIUM SULFATE / D5W 1 GM/100 ML BAG IV ONE (14:11)
--- NOTE | 2023-01-18 14:11 | Hospitalist Progress Note ---
Date of Service January 18, 2023 Assessment & Plan (1) Radicular pain of right lower extremity: (2) Right low back pain: Plan Patient came in with abrupt worsening of right lower back pain since yesterday, radiating down to RLE. He is being managed for the following: Lumbosacral radiculopathy Ambulatory dysfunction Had Injection [address] Ma per patient --Lumbar CT:No acute abnormalities in particular no evidence of fracture or other acute abnormality to explain leg pain. Degenerative changes are seen in the spine, if there is concern for neural foraminal stenosis, MRI can be performed. --MRI:1. Examination is severely degraded by extensive patient motion.2. Moderate to severe degenerative change of the lumbar spine as described.3. Moderate spinal canal stenosis is seen L3-L4 and L4-L5.4. Severe bilateral foraminal narrowing at L4-L5 with possible impingement of the exiting bilateral L4 nerve roots. Recommend correlation for symptoms. POD#1 s/p lumbar decompression bilaterally facetectomies and foraminotomies L3 L4-5, posterior spinal fusion L4-[address] Talamantes Per ortho for pain control, wound care, anticoagulation and activities Monitor H&H - hgb 12 today (from 14.6 pre-op, EBL 100ml) Hypotensive episode this AM with BP 87/59 after transfer, improved to 113/69 with 500ml NSS bolus. Remains asymptomatic. Cont maintenance fluids for another 1 L today. Patient counseled on caution with transfers Hypomagnesemia Started on oral supplement, given 1gm IV today. Continue to monitor with daily labs Nonobstructive nephrolithiasis. Diverticulosis without diverticulitis. Incidental findings on CT Follow-up as outpatient Hyperlipidemia Continue atorvastatin Hypertension Continue losartan DM II A1c 6.6 on 01/18 Hold PO meds Glycemic consult given high dose steroids post-op Monitor blood glucose levels DVT Px: SCDs Code Status: Full code Pt was seen and examined in collaboration with Dr. Álvarez, please see addendum Admission and Anticipated Discharge Date Admission Date: January 15, 2023 Supervising Physician Co-Signing Physician Notes Pt seen and examined by me, care coordinated w/ KATELYNN Duff, pls refer to her note above for further detail. Pt s/p lumbar spine surgery yesterday. This AM hypotensive and received IV NS bolus, BP improved. This afternoon he is feeling well. He ambulates to bathroom and in hallway. Voiding w/o difficulty. No BM yet. Pt's present at the bedside. Pt is awake alert oriented, answers appropriately. Lungs are CTAB. Heart sounds regular. Abdomen is soft nontender, nondistended, + bowel sounds. Pt moves extremities. Skin is warm and dry. Cont. to closely monitor, plan as above. MD Henri Subjective Patient was seen and examined in room 315 in follow up for R sided back pain. Pain has improved. Became hypotensive this morning after moving to bedside chair. Denies any associated lightheadedness, CP, SOB. No F/C, lightheadedness, CP, SOB, N/V, abd pain, dysuria, diarrhea or constipation. Marie removed this AM. Passing flatus post op, no postop bowel movement. Review of Systems Review of Systems: At least ten systems reviewed and negative except as noted in the HPI. Physical Exam Physical Exam: Gen: WD/WN, NAD, laying in bed resting comfortably, A&Ox3 HEENT: Normocephalic, atraumatic, conjunctivae moist, sclerae anicteric, mucous membranes moist Lung: Clear to Auscultation bilaterally, no wheezes/rales/rhonchi Heart: Regular rate, regular rhythm, no murmurs, rubs, or gallops Abdomen: Soft, NT, ND +BS x 4 Extremities: Spinal dressing c/d/i, +CRHISTINA drain, no edema, no sensory or motor deficits noted in BLE Skin: Warm, no rash Results & Data Results & Data Vital Signs (Past 12 Hours) Vital Signs Temp Pulse Resp BP BP Pulse Ox O2 Del Method 01/18/23 09:07 113/69 01/18/23 07:58 87/59 L 01/18/23 07:35 36.9 C 72 16 121/75 93 Room Air 01/18/23 05:29 64 01/18/23 05:27 100/61 01/18/23 03:18 37.0 C 59 L 16 97/61 L 95 Room Air Laboratory Results Short CBC 01/18/23 Range/Units 06:07 WBC 9.36 (4.8-10.8) K/ul Hgb 12.0 L (14.0-18.0) g/dl Hct 35.6 L (42.0-52.0) % Plt Count 196 (130-400) K/uL BMP 01/18/23 06:07 Sodium 136 Potassium 4.1 Chloride 103 Carbon Dioxide 27 BUN 22 Creatinine 1.03 Glucose 161 H Calcium 8.9 Diagnostic Findings Lumbar Spine CT 01/13/23 07:16 CT abd pelvis wo con, CT lumbar spine wo con CLINICAL HISTORY: R low back pain, into R gluteal area, down R leg TECHNIQUE: Helical axial images of the abdomen and pelvis were obtained. Automated dose lowering techniques and/or adjustment according to patient size were utilized for this exam. This exam was performed without intravenous contrast. COMPARISON: None available at the time of this dictation. FINDINGS: Lower chest: No acute abnormality. Atherosclerotic disease is seen in the coronary arteries. Liver: Unremarkable. No focal lesions are seen. Gallbladder and biliary tree: No calcified gallstones. Normal caliber wall. No intra- or extrahepatic biliary ductal dilation. Pancreas: Unremarkable, no focal lesions. Spleen: Unremarkable. Adrenals: Unremarkable. Kidneys and ureters: Nonobstructive nephrolithiasis is seen. Bladder: Unremarkable. Reproductive organs: Unremarkable. Bowel: Diverticulosis is seen without evidence of diverticulitis. There is a tiny hiatal hernia. Lymph nodes Retroperitoneal: Unremarkable. Pelvic: Unremarkable. Mesenteric: Unremarkable. Peritoneum: Normal. Vessels: Atherosclerotic calcifications are seen. Abdominal wall: Left fat containing inguinal hernia. Bones: Prominent degenerative changes are seen in the spine and left greater than right hip joints. Partial visualization of degenerative disc disease in the lower spine which may result in significant neural foraminal stenosis. IMPRESSION: 1. No acute abnormalities in particular no evidence of fracture or other acute abnormality to explain leg pain. Degenerative changes are seen in the spine, if there is concern for neural foraminal stenosis, MRI can be performed. 2. Nonobstructive nephrolithiasis. 3. Diverticulosis without diverticulitis. ACT 112: Negative or not required by law. Electronically signed by: Saúl Ag M.D. 01/13/2023 8:52 AM Abdomen/Pelvis CT 01/13/23 08:16 CT abd pelvis wo con, CT lumbar spine wo con CLINICAL HISTORY: R low back pain, into R gluteal area, down R leg TECHNIQUE: Helical axial images of the abdomen and pelvis were obtained. Automated dose lowering techniques and/or adjustment according to patient size were utilized for this exam. This exam was performed without intravenous contrast. COMPARISON: None available at the time of this dictation. FINDINGS: Lower chest: No acute abnormality. Atherosclerotic disease is seen in the coronary arteries. Liver: Unremarkable. No focal lesions are seen. Gallbladder and biliary tree: No calcified gallstones. Normal caliber wall. No intra- or extrahepatic biliary ductal dilation. Pancreas: Unremarkable, no focal lesions. Spleen: Unremarkable. Adrenals: Unremarkable. Kidneys and ureters: Nonobstructive nephrolithiasis is seen. Bladder: Unremarkable. Reproductive organs: Unremarkable. Bowel: Diverticulosis is seen without evidence of diverticulitis. There is a tiny hiatal hernia. Lymph nodes Retroperitoneal: Unremarkable. Pelvic: Unremarkable. Mesenteric: Unremarkable. Peritoneum: Normal. Vessels: Atherosclerotic calcifications are seen. Abdominal wall: Left fat containing inguinal hernia. Bones: Prominent degenerative changes are seen in the spine and left greater than right hip joints. Partial visualization of degenerative disc disease in the lower spine which may result in significant neural foraminal stenosis. IMPRESSION: 1. No acute abnormalities in particular no evidence of fracture or other acute abnormality to explain leg pain. Degenerative changes are seen in the spine, if there is concern for neural foraminal stenosis, MRI can be performed. 2. Nonobstructive nephrolithiasis. 3. Diverticulosis without diverticulitis. ACT 112: Negative or not required by law. Electronically signed by: Saúl Ag M.D. 01/13/2023 8:52 AM Lumbar Spine MRI 01/14/23 09:38 Exam(s): MRI L SPINE Without Contrast EXAM: MR Lumbar Spine Without Intravenous Contrast CLINICAL HISTORY: Reason for exam: back and right leg pain. TECHNIQUE: Magnetic resonance images of the lumbar spine without intravenous contrast in multiple planes. COMPARISON: CT lumbar spine 01/13/2023. FINDINGS: Vertebrae: Modic degenerative endplate changes are seen in the lumbar spine. Grade 1 anterolisthesis of L4 on L5. Chronic compression deformity of the T11 and T12 vertebral bodies. Spinal cord: Unremarkable. No discrete signal abnormality is seen in the distal spinal cord or the descending nerve roots on motion degraded examination. Soft tissues: Unremarkable. DISCS/SPINAL CANAL/NEURAL FORAMINA: T12-L1: Disc bulge with endplate osteophytes and bilateral facet arthrosis. No significant spinal canal stenosis or foraminal narrowing. L1-L2: Disc bulge with endplate osteophytes and bilateral facet arthrosis. No significant spinal canal stenosis or foraminal narrowing. L2-L3: Disc bulge with endplate osteophytes and bilateral facet arthrosis. Mild spinal canal stenosis. Mild bilateral foraminal narrowing. L3-L4: Disc bulge with endplate osteophytes and bilateral facet arthrosis. Moderate spinal canal stenosis. Moderate right and mild-to- moderate left foraminal narrowing. L4-L5: Disc bulge with endplate osteophytes and severe bilateral facet arthrosis. Bilateral facet joint effusions as well as synovial cysts. Moderate spinal canal stenosis. Severe bilateral foraminal narrowing with possible impingement of exiting bilateral L4 nerve roots. L5-S1: Disc bulge with endplate osteophytes and severe bilateral facet arthrosis. Bilateral facet joint effusions. No significant spinal canal stenosis. Moderate to severe bilateral foraminal narrowing. Other findings: Examination is severely degraded by extensive patient motion. IMPRESSION: 1. Examination is severely degraded by extensive patient motion. 2. Moderate to severe degenerative change of the lumbar spine as described. 3. Moderate spinal canal stenosis is seen L3-L4 and L4-L5. 4. Severe bilateral foraminal narrowing at L4-L5 with possible impingement of the exiting bilateral L4 nerve roots. Recommend correlation for symptoms. Electronically signed by: Arya Islas MD 01/14/23 20:48 PM Chest X-Ray 01/15/23 12:21 XR chest 1V portable HISTORY: 67 years-old Male pre op preoperative exam COMPARISON: None TECHNIQUE: AP view of the chest FINDINGS: Cardiomediastinal and hilar silhouettes are within normal limits. No pneumothorax, pleural effusion or airspace consolidation. Distal descending thoracic aortic tortuosity. Bones appear grossly intact. IMPRESSION: No acute process. ACT 112: Negative or not required by law. The above report was generated using voice recognition software. It may contain grammatical, syntax or spelling errors. Electronically signed by: Selwyn Shane M.D. 01/15/2023 12:40 PM Lumbar Spine X-Ray 01/17/23 07:45 INTRAOPERATIVE RADIOGRAPHS CLINICAL HISTORY: L4-L5 spinal fusion. Fluoro time: 17 seconds Ka,r: 13.50 mGy FINDINGS: 2 spot fluoroscopic views of the lumbar spine are presented. There has been discectomy at L4-L5 with laminectomy and posterior fusion at this level. Interpedicular screws are in place. The orthopedic hardware appears intact. IMPRESSION: Intraoperative images from lumbar spinal fusion surgery as above. Electronically signed by: Baron Farrell M.D. 01/17/2023 10:35 AM
[2023-01-18] MEDS: ATORVASTATIN 40 MG TAB PO SCH (19:59)
[2023-01-18] MEDS: ASPIRIN 81 MG ECTAB PO SCH (19:59)
[2023-01-18] MEDS: LOSARTAN POTASSIUM 50 MG TAB PO SCH (20:00)
[2023-01-19] MEDS: POLYETHYLENE (MIRALAX) 17 GM PACK PO SCH ×5 (00:06→23:58)
[2023-01-19] MEDS: oxyCODONE HCL IR 5 MG TAB (IMMEDIATE RELEASE) PO PRN ×5 (04:02→23:57)
[2023-01-19] MEDS: LACTATED RINGER'S 1,000 ML IV SCH (04:02)
[2023-01-19 06:12] LABS: Hematocrit (blood only) 33.8 % (42.0-52.0); Hemoglobin 11.4 g/dl (14.0-18.0); Mean Corpuscular Hemoglobin 29.8 pg (25.0-34.0); Mean Corpuscular Hgb Conc 33.7 g/dL (32.0-36.0); Mean Corpuscular Volume 88.5 fL (80.0-100.0); Platelet Count 176 K/uL (130-400); RDW Coefficient of Variation 14.2 % (11.5-14.5); RDW Standard Deviation 45.4 fL (36.4-46.3); Red Blood Count 3.82 M/uL (4.70-6.10); White Blood Count 9.06 K/ul (4.8-10.8)
[2023-01-19 06:35] LABS: BUN Creatinine Ratio 21.5 (10-20); Creatinine Clr Calc Pharmacy 81.1 ml/min; Est GFR (African American) 97.4 ml/min; Est GFR (Non-African American) 84.1 ml/min; Magnesium 1.7 mg/dl (1.7-2.4); Potassium 4.1 mmol/L (3.5-5.1)
[2023-01-19] MEDS ORDERED: MAGNESIUM SULFATE / D5W 1 GM/100 ML BAG IV ONE (08:35)
--- NOTE | 2023-01-19 08:35 | Hospitalist Progress Note ---
Date of Service January 19, 2023 Assessment & Plan (1) Radicular pain of right lower extremity: (2) Right low back pain: Plan Patient came in with abrupt worsening of right lower back pain radiating down to RLE. He is being managed for the following: Lumbosacral radiculopathy Ambulatory dysfunction Had Injection [address] Ma per patient --Lumbar CT:No acute abnormalities in particular no evidence of fracture or other acute abnormality to explain leg pain. Degenerative changes are seen in the spine, if there is concern for neural foraminal stenosis, MRI can be performed. --MRI:1. Examination is severely degraded by extensive patient motion.2. Moderate to severe degenerative change of the lumbar spine as described.3. Moderate spinal canal stenosis is seen L3-L4 and L4-L5.4. Severe bilateral foraminal narrowing at L4-L5 with possible impingement of the exiting bilateral L4 nerve roots. Recommend correlation for symptoms. POD#2 s/p lumbar decompression bilaterally facetectomies and foraminotomies L3 L4-5, posterior spinal fusion L4-[address] Talamantes Per ortho for pain control, wound care, anticoagulation and activities Monitor H&H - hgb 11.4 today Hypotensive episode yesterday AM with BP 87/59 after transfer, improved to 113/69 with 500ml NSS bolus. Remains asymptomatic. BP improved, currently 125/68 Acute blood loss anemia, post-op, vs dilutional component Pre-op Hgb 13-14, post op Hgb 12. Currently Hgb 11.4 - cont. to monitor H&H - no need for blood transfusion Hypomagnesemia Started on oral supplement, given 1gm IV today. Continue to monitor with daily labs Nonobstructive nephrolithiasis. Diverticulosis without diverticulitis. Incidental findings on CT Follow-up as outpatient Hyperlipidemia Continue atorvastatin Hypertension Continue losartan DM II A1c 6.6 on 01/18 Hold PO meds Glycemic consult given high dose steroids post-op Monitor blood glucose levels DVT Px: SCDs Code Status: Full code Admission and Anticipated Discharge Date Admission Date: January 15, 2023 Subjective Patient was seen and examined in room 315 in follow up for R sided back pain. Post-op pain controlled and pain in leg resolved. Ambulatory in hallway. Denies any fever, chills, chest pain, shortness of breath. No abd. pain, n/v. Voiding w/o difficulty. No BM, + flatus. Review of Systems Review of Systems: All systems reviewed & are unremarkable except as noted in Subjective Physical Exam Physical Exam: Gen: WD/WN, M in NAD, laying in bed resting comfortably, A&Ox3 HEENT: Normocephalic, atraumatic, conjunctivae moist, sclerae anicteric, mucous membranes moist Lung: Clear to Auscultation bilaterally, no wheezes/rales/rhonchi Heart: Regular rate, regular rhythm, no murmurs, rubs, or gallops Abdomen: Soft, NT, ND +BS x 4 Extremities: Spinal dressing c/d/i, +CHRISTINA drain, no edema, no sensory or motor deficits noted in BLE Skin: Warm, no rash Results & Data Results & Data Vital Signs (Past 12 Hours) Vital Signs Temp Pulse Resp BP Pulse Ox O2 Del Method 01/19/23 07:28 36.3 C L 76 16 125/68 98 Room Air 01/18/23 21:35 36.9 C 77 16 154/76 H 94 Room Air Laboratory Results 01/19/23 01/19/23 01/18/23 Range/Units 07:25 05:52 20:38 WBC 9.06 (4.8-10.8) K/ul RBC 3.82 L (4.70-6.10) M/uL Hgb 11.4 L (14.0-18.0) g/dl Hct 33.8 L (42.0-52.0) % MCV 88.5 (80.0-100.0) fL MCH 29.8 (25.0-34.0) pg MCHC 33.7 (32.0-36.0) g/dL RDW Std Deviation 45.4 (36.4-46.3) fL RDW Coeff of Aspen 14.2 (11.5-14.5) % Plt Count 176 (130-400) K/uL MPV 10.0 (9.4-12.4) fL Sodium 135 L (136-145) mmol/L Potassium 4.1 (3.5-5.1) mmol/L Chloride 104 (98-107) mmol/L Carbon Dioxide 25 (21-32) mmol/L Anion Gap 6 (3-11) BUN 20 (6-23) mg/dl Creatinine 0.93 (0.6-1.4) mg/dl Est Cr Clr Drug Dosing 81.1 ml/min Est GFR ( Amer) 97.4 ml/min Est GFR (Non-Af Amer) 84.1 ml/min BUN/Creatinine Ratio 21.5 H (10-20) Glucose 169 H (70-99(Fasting)) mg/dl POC Glucose 175 H 82 (70-99) mg/dl Calcium 9.0 (8.6-10.3) mg/dl Magnesium 1.7 (1.7-2.4) mg/dl Crossmatch 01/18/23 01/18/23 01/16/23 Range/Units 16:46 11:32 15:25 WBC (4.8-10.8) K/ul RBC (4.70-6.10) M/uL Hgb (14.0-18.0) g/dl Hct (42.0-52.0) % MCV (80.0-100.0) fL MCH (25.0-34.0) pg MCHC (32.0-36.0) g/dL RDW Std Deviation (36.4-46.3) fL RDW Coeff of Aspen (11.5-14.5) % Plt Count (130-400) K/uL MPV (9.4-12.4) fL Sodium (136-145) mmol/L Potassium (3.5-5.1) mmol/L Chloride (98-107) mmol/L Carbon Dioxide (21-32) mmol/L Anion Gap (3-11) BUN (6-23) mg/dl Creatinine (0.6-1.4) mg/dl Est Cr Clr Drug Dosing ml/min Est GFR ( Amer) ml/min Est GFR (Non-Af Amer) ml/min BUN/Creatinine Ratio (10-20) Glucose (70-99(Fasting)) mg/dl POC Glucose 208 H 291 H (70-99) mg/dl Calcium (8.6-10.3) mg/dl Magnesium (1.7-2.4) mg/dl Crossmatch See Detail Medications Administered Current Inpatient Medications Acetaminophen (Acetaminophen 500 Mg Tab) 1,000 mg PO Q8H PRN PRN Reason: MILD Pain Scale 1,2,3 & Pre PT Stop: 02/16/23 10:24 Last Admin: 01/18/23 08:24 Dose: 1,000 mg Al Hydrox/Mg Hydrox/Simethicone (Aluminum/Magnesium Susp 30 Ml Udc) 30 ml PO Q6H PRN PRN Reason: Dyspepsia Stop: 02/16/23 10:24 Aspirin (Aspirin 81 Mg Ectab) 81 mg PO PM SYMONE Stop: 02/12/23 20:59 Last Admin: 01/18/23 19:59 Dose: 81 mg Atorvastatin Calcium (Atorvastatin 40 Mg Tab) 40 mg PO HS SYMONE Stop: 02/12/23 20:59 Last Admin: 01/18/23 19:59 Dose: 40 mg Bisacodyl (Bisacodyl 10 Mg Supp) 10 mg MA DAILY PRN PRN Reason: Constipation Stop: 02/16/23 10:24 Dextrose (Dextrose 50% 50 Ml Syringe) 25 - 50 ml IV UD PRN; Protocol PRN Reason: Hypoglycemia Protocol Stop: 02/12/23 10:41 Diphenhydramine HCl (Diphenhydramine Capsule 25 Mg Cap) 25 mg PO Q6H PRN PRN Reason: Allergic Rhinitis/Insomnia Stop: 02/16/23 10:24 Famotidine (Famotidine 20 Mg Tab) 20 mg PO Q12H PRN PRN Reason: Dyspepsia Stop: 02/16/23 10:24 Last Admin: 01/18/23 14:56 Dose: 20 mg Glucagon (Glucagon For Inj 1 Mg Vial) 1 mg SQ UD PRN; Protocol PRN Reason: Hypoglycemia Protocol Stop: 02/12/23 10:41 Glucose (Glucose 10 Tab/Tube) 4 - 8 tab PO UD PRN; Protocol PRN Reason: Hypoglycemia Treatment Stop: 02/12/23 10:41 Glucose (Glucose 40% Gel 15 Gm Tube) 15 - 30 gm PO UD PRN; Protocol PRN Reason: Hypoglycemia Protocol Stop: 02/12/23 10:41 Hydromorphone HCl (Hydromorphone Inj 0.5 Mg/0.5 Ml Syr) 0.5 mg IV Q3H PRN PRN Reason: MODERATE Pain (Scale 4,5,6) & Pre PT Stop: 01/31/23 10:24 Hydromorphone HCl (Hydromorphone Inj 1 Mg/Ml Syringe) 1 mg IV Q3H PRN PRN Reason: SEVERE Pain (Scale 7,8,9,10) Stop: 01/31/23 10:24 Hydroxyzine HCl (Hydroxyzine Hcl 25 Mg Tab) 25 mg PO Q8H PRN PRN Reason: Anxiety Stop: 02/16/23 10:24 Lactated Ringer's (Lr) 1,000 mls @ 15 mls/hr IV .Q24H [facility] Stop: 02/16/23 06:59 Last Admin: 01/19/23 04:02 Dose: Not Given Lorazepam 0.5 mg/ Syringe 0.5 mls @ 2 mls/min IV Q8H PRN; Protocol PRN Reason: Sedation/Anxiety Stop: 02/16/23 10:24 Dexamethasone 6 mg/ Syringe 1.5 mls @ 1 mls/min IV DAILY [facility] Stop: 01/20/23 09:02 Last Admin: 01/18/23 08:46 Dose: 1 mls/min Promethazine HCl 12.5 mg/ (Sodium Chloride) 50.5 mls @ 202 mls/hr IV Q6H PRN PRN Reason: Nausea &/or Vomiting Stop: 02/16/23 10:24 Influenza Virus Vaccine Quadrival (Do Not Administer Flu Vaccine) 1 each N/A PRN PRN PRN Reason: Notification Stop: 02/16/23 10:24 Insulin Aspart (Insulin Aspart Per Unit Charge) 0 units SC ACHS [facility] Stop: 02/16/23 11:29 Last Admin: 01/18/23 21:42 Dose: Not Given Insulin Glargine (Lantus Per Unit Charge) 30 units SC DAILY [facility] Stop: 01/20/23 09:01 Last Admin: 01/18/23 08:48 Dose: 30 units Lidocaine (Lidocaine 5% 1 Patch) 1 patch TD QAM [facility] Stop: 02/13/23 08:59 Last Admin: 01/18/23 08:47 Dose: Not Given Lorazepam (Lorazepam 0.5 Mg Tab) 0.5 mg PO Q8H PRN PRN Reason: Sedation/Anxiety Stop: 02/16/23 10:24 Losartan Potassium (Losartan Potassium 50 Mg Tab) 50 mg PO PM [facility] Stop: 02/13/23 20:59 Last Admin: 01/18/23 20:00 Dose: 50 mg Magnesium Chloride (Magnesium Chloride W/Calcium 64mg Delayed Rel Tab) 64 mg PO BID [facility] Stop: 02/15/23 20:59 Last Admin: 01/18/23 20:00 Dose: 64 mg Magnesium Hydroxide (Magnesium Hydroxide Susp 30 Ml Udc) 30 ml PO Q6H PRN PRN Reason: Constipation Stop: 02/12/23 10:38 Magnesium Hydroxide (Magnesium Hydroxide Susp 30 Ml Udc) 30 ml PO Q24H PRN PRN Reason: Constipation Stop: 02/16/23 10:24 Metoclopramide HCl (Metoclopramide Hcl Inj 5 Mg/Ml 2 Ml Vial) 10 mg IV Q6H PRN PRN Reason: Nausea &/or Vomiting Stop: 02/16/23 10:24 Miscellaneous (Carbohydrates For Hypoglycemia ) 15 - 30 gm PO UD PRN PRN Reason: Hypoglycemia Protocol Stop: 02/12/23 10:41 Miscellaneous (Remove Lidoderm Patch) 1 each N/A DAILY@2100 [facility] Stop: 02/12/23 20:59 Last Admin: 01/18/23 20:00 Dose: 1 each Miscellaneous Information (Pharmacy Glycemic Mgmt Consult) 1 each N/A UD PRN; Protocol PRN Reason: Consult Stop: 02/16/23 20:59 Naloxone HCl (Naloxone Hcl 0.4 Mg/1 Ml Vial/Carp) 0.1 mg IV Q5M PRN PRN Reason: Oversedation/Resp depression Stop: 02/16/23 10:24 Ondansetron HCl (Ondansetron Inj 2 Mg/Ml 2 Ml Vial) 4 mg IV Q6H PRN PRN Reason: Nausea &/or Vomiting Stop: 02/16/23 10:24 Ondansetron HCl (Ondansetron 4 Mg Od Tab) 4 mg PO Q6H PRN PRN Reason: Nausea Stop: 02/16/23 10:24 Oxycodone HCl (Oxycodone Hcl Ir 5 Mg Tab (Immediate Release)) 5 - 10 mg PO Q4H PRN PRN Reason: Pain & Pre PT Stop: 01/31/23 10:24 Last Admin: 01/19/23 04:02 Dose: 10 mg Pneumococcal Polyvalent Vaccine (Do Not Administer Pneumococcal Vaccine) 1 each N/A PRN PRN PRN Reason: Notification Stop: 02/16/23 10:24 Polyethylene Glycol (Polyethylene (Miralax) 17 Gm Pack) 17 gm PO Q6 [facility] Stop: 02/17/23 05:59 Last Admin: 01/19/23 04:02 Dose: 17 gm Senna/Docusate Sodium (Docusate Sodium/Senna 50/8.6mg Tab) 1 tab PO BID [facility] Stop: 02/14/23 08:59 Last Admin: 01/18/23 19:59 Dose: 1 tab Sodium Biphosphate/Sodium Phosphate (Sod Phosphate/Sod Biphosphate Enema 132 Ml Btl) 132 ml MA ONE PRN PRN Reason: Constipation Stop: 02/16/23 10:24 Tramadol HCl (Tramadol Hcl 50 Mg Tablet) 50 - 100 mg PO Q4H PRN PRN Reason: Moderate-Severe pain & Pre PT Stop: 02/16/23 10:24
--- NOTE | 2023-01-19 08:51 | Orthopedic Progress Note ---
Date of Service January 19, 2023 Assessment & Plan (1) Lumbar disc herniation with radiculopathy: Plan: We will continue physical therapy monitor CHRISTINA output anticipate discharge home tomorrow. Admission and Anticipated Discharge Date Admission Date: January 15, 2023 Subjective Back pain controlled leg pain improved Physical Exam Physical Exam: Patient is constricted testing for discomfort. Results & Data Vital Signs (Past 12 Hours) Vital Signs Temp Pulse Resp BP Pulse Ox O2 Del Method 01/19/23 07:28 36.3 C L 76 16 125/68 98 Room Air 01/18/23 21:35 36.9 C 77 16 154/76 H 94 Room Air
[2023-01-19] MEDS: DOCUSATE SODIUM/SENNA 50/8.6MG TAB PO SCH ×2 (09:01→20:55)
[2023-01-19] MEDS: dexAMETHasone 6 MG in SYRINGE 0 ML IV SCH (09:01)
[2023-01-19] MEDS: LIDOCAINE 5% 1 PATCH TD SCH (09:01)
[2023-01-19] MEDS: MAGNESIUM CHLORIDE W/CALCIUM 64MG DELAYED REL TAB PO SCH ×2 (09:02→20:55)
[2023-01-19] MEDS: LANTUS PER UNIT CHARGE SC SCH (09:47)
[2023-01-19] MEDS: INSULIN ASPART PER UNIT CHARGE SC SCH ×4 (09:47→21:01)
[2023-01-19] MEDS: LOSARTAN POTASSIUM 50 MG TAB PO SCH (20:55)
[2023-01-19] MEDS: ASPIRIN 81 MG ECTAB PO SCH (20:55)
[2023-01-19] MEDS: ATORVASTATIN 40 MG TAB PO SCH (20:55)
[2023-01-19] MEDS: MAGNESIUM HYDROXIDE SUSP 30 ML UDC PO PRN (21:01)
[2023-01-20] MEDS: oxyCODONE HCL IR 5 MG TAB (IMMEDIATE RELEASE) PO PRN ×2 (05:19→09:50)
[2023-01-20] MEDS: POLYETHYLENE (MIRALAX) 17 GM PACK PO SCH (05:20)
[2023-01-20] MEDS: MAGNESIUM HYDROXIDE SUSP 30 ML UDC PO PRN (05:21)
[2023-01-20] MEDS: LACTATED RINGER'S 1,000 ML IV SCH (06:00)
[2023-01-20 06:27] LABS: Hematocrit (blood only) 35.7 % (42.0-52.0); Hemoglobin 11.8 g/dl (14.0-18.0); Mean Corpuscular Hemoglobin 29.7 pg (25.0-34.0); Mean Corpuscular Hgb Conc 33.1 g/dL (32.0-36.0); Mean Corpuscular Volume 89.9 fL (80.0-100.0); Mean Platelet Volume 10.1 fL (9.4-12.4); Platelet Count 216 K/uL (130-400); RDW Coefficient of Variation 14.1 % (11.5-14.5); RDW Standard Deviation 46.5 fL (36.4-46.3); Red Blood Count 3.97 M/uL (4.70-6.10); White Blood Count 9.36 K/ul (4.8-10.8)
[2023-01-20 06:44] LABS: BUN Creatinine Ratio 23.8 (10-20); Calcium 9.5 mg/dl (8.6-10.3); Creatinine Clr Calc Pharmacy 74.7 ml/min; Est GFR (African American) 88.2 ml/min; Est GFR (Non-African American) 76.1 ml/min; Magnesium 1.9 mg/dl (1.7-2.4); Potassium 4.3 mmol/L (3.5-5.1)
--- NOTE | 2023-01-20 07:46 | Hospitalist Progress Note ---
Date of Service January 20, 2023 Assessment & Plan (1) Radicular pain of right lower extremity: (2) Right low back pain: Plan Patient came in with abrupt worsening of right lower back pain radiating down to RLE. He is being managed for the following: Lumbosacral radiculopathy Ambulatory dysfunction Had Injection [address] Ma per patient --Lumbar CT:No acute abnormalities in particular no evidence of fracture or other acute abnormality to explain leg pain. Degenerative changes are seen in the spine, if there is concern for neural foraminal stenosis, MRI can be performed. --MRI:1. Examination is severely degraded by extensive patient motion.2. Moderate to severe degenerative change of the lumbar spine as described.3. Moderate spinal canal stenosis is seen L3-L4 and L4-L5.4. Severe bilateral foraminal narrowing at L4-L5 with possible impingement of the exiting bilateral L4 nerve roots. Recommend correlation for symptoms. POD#3 s/p lumbar decompression bilaterally facetectomies and foraminotomies L3 L4-5, posterior spinal fusion L4-[address] Talamantes Per ortho for pain control, wound care, anticoagulation and activities Monitor H&H - hgb 11.8 today Hypotensive episode yesterday AM with BP 87/59 after transfer, improved to 113/69 with 500ml NSS bolus. Remains asymptomatic. BP improved, currently 125/68 Acute blood loss anemia, post-op, vs dilutional component Pre-op Hgb 13-14, post op Hgb 12. Currently Hgb 11.8 - cont. to monitor H&H - no need for blood transfusion Hypomagnesemia Started on oral supplement Nonobstructive nephrolithiasis. Diverticulosis without diverticulitis. Incidental findings on CT Follow-up as outpatient Hyperlipidemia Continue atorvastatin Hypertension Continue losartan DM II A1c 6.6 on 01/18 Hold PO meds Glycemic consult given high dose steroids post-op Monitor blood glucose levels DVT Px: SCDs Code Status: Full code Admission and Anticipated Discharge Date Admission Date: January 15, 2023 Subjective Patient was seen and examined in room 315 in follow up for R sided back pain. Post-op pain controlled and pain in leg resolved. Ambulatory in hallway w/ waker. Denies any fever, chills, chest pain, shortness of breath. No abd. pain, n/v. Voiding w/o difficulty. No BM, + flatus. plan do Dc home today Review of Systems Review of Systems: All systems reviewed & are unremarkable except as noted in Subjective Physical Exam Physical Exam: Gen: WD/WN, M in NAD, laying in bed resting comfortably, A&Ox3 HEENT: Normocephalic, atraumatic, conjunctivae moist, sclerae anicteric, mucous membranes moist Lung: Clear to Auscultation bilaterally, no wheezes/rales/rhonchi Heart: Regular rate, regular rhythm, no murmurs, rubs, or gallops Abdomen: Soft, NT, ND +BS x 4 Extremities: Spinal dressing c/d/i, +CHRISTINA drain, no edema, no sensory or motor deficits noted in BLE Skin: Warm, no rash Results & Data Results & Data Vital Signs (Past 12 Hours) Vital Signs Temp Pulse Resp BP BP Pulse Ox O2 Del Method 01/20/23 07:19 71 97 Room Air 01/20/23 07:00 37.2 C 100 H 16 130/74 92 Room Air 01/19/23 20:17 36.9 C 91 H 18 144/88 H 96 Room Air Laboratory Results 01/20/23 01/20/23 01/19/23 Range/Units 07:42 06:02 20:58 WBC 9.36 (4.8-10.8) K/ul RBC 3.97 L (4.70-6.10) M/uL Hgb 11.8 L (14.0-18.0) g/dl Hct 35.7 L (42.0-52.0) % MCV 89.9 (80.0-100.0) fL MCH 29.7 (25.0-34.0) pg MCHC 33.1 (32.0-36.0) g/dL RDW Std Deviation 46.5 H (36.4-46.3) fL RDW Coeff of Aspen 14.1 (11.5-14.5) % Plt Count 216 (130-400) K/uL MPV 10.1 (9.4-12.4) fL Sodium 137 (136-145) mmol/L Potassium 4.3 (3.5-5.1) mmol/L Chloride 102 (98-107) mmol/L Carbon Dioxide 29 (21-32) mmol/L Anion Gap 6 (3-11) BUN 24 H (6-23) mg/dl Creatinine 1.01 (0.6-1.4) mg/dl Est Cr Clr Drug Dosing 74.7 ml/min Est GFR ( Amer) 88.2 ml/min Est GFR (Non-Af Amer) 76.1 ml/min BUN/Creatinine Ratio 23.8 H (10-20) Glucose 161 H (70-99(Fasting)) mg/dl POC Glucose 175 H 187 H (70-99) mg/dl Calcium 9.5 (8.6-10.3) mg/dl Magnesium 1.9 (1.7-2.4) mg/dl 01/19/23 01/19/23 Range/Units 16:38 11:29 WBC (4.8-10.8) K/ul RBC (4.70-6.10) M/uL Hgb (14.0-18.0) g/dl Hct (42.0-52.0) % MCV (80.0-100.0) fL MCH (25.0-34.0) pg MCHC (32.0-36.0) g/dL RDW Std Deviation (36.4-46.3) fL RDW Coeff of Aspen (11.5-14.5) % Plt Count (130-400) K/uL MPV (9.4-12.4) fL Sodium (136-145) mmol/L Potassium (3.5-5.1) mmol/L Chloride (98-107) mmol/L Carbon Dioxide (21-32) mmol/L Anion Gap (3-11) BUN (6-23) mg/dl Creatinine (0.6-1.4) mg/dl Est Cr Clr Drug Dosing ml/min Est GFR ( Amer) ml/min Est GFR (Non-Af Amer) ml/min BUN/Creatinine Ratio (10-20) Glucose (70-99(Fasting)) mg/dl POC Glucose 200 H 203 H (70-99) mg/dl Calcium (8.6-10.3) mg/dl Magnesium (1.7-2.4) mg/dl Medications Administered Current Inpatient Medications Acetaminophen (Acetaminophen 500 Mg Tab) 1,000 mg PO Q8H PRN PRN Reason: MILD Pain Scale 1,2,3 & Pre PT Stop: 02/16/23 10:24 Last Admin: 01/18/23 08:24 Dose: 1,000 mg Al Hydrox/Mg Hydrox/Simethicone (Aluminum/Magnesium Susp 30 Ml Udc) 30 ml PO Q6H PRN PRN Reason: Dyspepsia Stop: 02/16/23 10:24 Aspirin (Aspirin 81 Mg Ectab) 81 mg PO PM SYMONE Stop: 02/12/23 20:59 Last Admin: 01/19/23 20:55 Dose: 81 mg Atorvastatin Calcium (Atorvastatin 40 Mg Tab) 40 mg PO HS SYMONE Stop: 02/12/23 20:59 Last Admin: 01/19/23 20:55 Dose: 40 mg Bisacodyl (Bisacodyl 10 Mg Supp) 10 mg AR DAILY PRN PRN Reason: Constipation Stop: 02/16/23 10:24 Dextrose (Dextrose 50% 50 Ml Syringe) 25 - 50 ml IV UD PRN; Protocol PRN Reason: Hypoglycemia Protocol Stop: 02/12/23 10:41 Diphenhydramine HCl (Diphenhydramine Capsule 25 Mg Cap) 25 mg PO Q6H PRN PRN Reason: Allergic Rhinitis/Insomnia Stop: 02/16/23 10:24 Famotidine (Famotidine 20 Mg Tab) 20 mg PO Q12H PRN PRN Reason: Dyspepsia Stop: 02/16/23 10:24 Last Admin: 01/18/23 14:56 Dose: 20 mg Glucagon (Glucagon For Inj 1 Mg Vial) 1 mg SQ UD PRN; Protocol PRN Reason: Hypoglycemia Protocol Stop: 02/12/23 10:41 Glucose (Glucose 10 Tab/Tube) 4 - 8 tab PO UD PRN; Protocol PRN Reason: Hypoglycemia Treatment Stop: 02/12/23 10:41 Glucose (Glucose 40% Gel 15 Gm Tube) 15 - 30 gm PO UD PRN; Protocol PRN Reason: Hypoglycemia Protocol Stop: 02/12/23 10:41 Hydromorphone HCl (Hydromorphone Inj 0.5 Mg/0.5 Ml Syr) 0.5 mg IV Q3H PRN PRN Reason: MODERATE Pain (Scale 4,5,6) & Pre PT Stop: 01/31/23 10:24 Hydromorphone HCl (Hydromorphone Inj 1 Mg/Ml Syringe) 1 mg IV Q3H PRN PRN Reason: SEVERE Pain (Scale 7,8,9,10) Stop: 01/31/23 10:24 Hydroxyzine HCl (Hydroxyzine Hcl 25 Mg Tab) 25 mg PO Q8H PRN PRN Reason: Anxiety Stop: 02/16/23 10:24 Lactated Ringer's (Lr) 1,000 mls @ 15 mls/hr IV .Q24H SYMONE Stop: 02/16/23 06:59 Last Admin: 01/20/23 06:00 Dose: Not Given Lorazepam 0.5 mg/ Syringe 0.5 mls @ 2 mls/min IV Q8H PRN; Protocol PRN Reason: Sedation/Anxiety Stop: 02/16/23 10:24 Dexamethasone 6 mg/ Syringe 1.5 mls @ 1 mls/min IV DAILY [facility] [place] Stop: 01/20/23 09:02 Last Admin: 01/19/23 09:01 Dose: 1 mls/min Promethazine HCl 12.5 mg/ (Sodium Chloride) 50.5 mls @ 202 mls/hr IV Q6H PRN PRN Reason: Nausea &/or Vomiting Stop: 02/16/23 10:24 Influenza Virus Vaccine Quadrival (Do Not Administer Flu Vaccine) 1 each N/A PRN PRN PRN Reason: Notification Stop: 02/16/23 10:24 Insulin Aspart (Insulin Aspart Per Unit Charge) 0 units SC ACHS [facility] [place] Stop: 02/16/23 11:29 Last Admin: 01/19/23 21:01 Dose: 3 units Insulin Glargine (Lantus Per Unit Charge) 30 units SC DAILY SYMONE Stop: 01/20/23 09:01 Last Admin: 01/19/23 09:47 Dose: 30 units Lidocaine (Lidocaine 5% 1 Patch) 1 patch TD QAM [facility] [place] Stop: 02/13/23 08:59 Last Admin: 01/19/23 09:01 Dose: 1 patch Lorazepam (Lorazepam 0.5 Mg Tab) 0.5 mg PO Q8H PRN PRN Reason: Sedation/Anxiety Stop: 02/16/23 10:24 Losartan Potassium (Losartan Potassium 50 Mg Tab) 50 mg PO PM SYMONE Stop: 02/13/23 20:59 Last Admin: 01/19/23 20:55 Dose: 50 mg Magnesium Chloride (Magnesium Chloride W/Calcium 64mg Delayed Rel Tab) 64 mg PO BID SYMONE Stop: 02/15/23 20:59 Last Admin: 01/19/23 20:55 Dose: 64 mg Magnesium Hydroxide (Magnesium Hydroxide Susp 30 Ml Udc) 30 ml PO Q6H PRN PRN Reason: Constipation Stop: 02/12/23 10:38 Last Admin: 01/20/23 05:21 Dose: 30 ml Magnesium Hydroxide (Magnesium Hydroxide Susp 30 Ml Udc) 30 ml PO Q24H PRN PRN Reason: Constipation Stop: 02/16/23 10:24 Metoclopramide HCl (Metoclopramide Hcl Inj 5 Mg/Ml 2 Ml Vial) 10 mg IV Q6H PRN PRN Reason: Nausea &/or Vomiting Stop: 02/16/23 10:24 Miscellaneous (Carbohydrates For Hypoglycemia ) 15 - 30 gm PO UD PRN PRN Reason: Hypoglycemia Protocol Stop: 02/12/23 10:41 Miscellaneous (Remove Lidoderm Patch) 1 each N/A DAILY@2100 [facility] [place] Stop: 02/12/23 20:59 Last Admin: 01/19/23 20:56 Dose: 1 each Miscellaneous Information (Pharmacy Glycemic Mgmt Consult) 1 each N/A UD PRN; Protocol PRN Reason: Consult Stop: 02/16/23 20:59 Naloxone HCl (Naloxone Hcl 0.4 Mg/1 Ml Vial/Carp) 0.1 mg IV Q5M PRN PRN Reason: Oversedation/Resp depression Stop: 02/16/23 10:24 Ondansetron HCl (Ondansetron Inj 2 Mg/Ml 2 Ml Vial) 4 mg IV Q6H PRN PRN Reason: Nausea &/or Vomiting Stop: 02/16/23 10:24 Ondansetron HCl (Ondansetron 4 Mg Od Tab) 4 mg PO Q6H PRN PRN Reason: Nausea Stop: 02/16/23 10:24 Oxycodone HCl (Oxycodone Hcl Ir 5 Mg Tab (Immediate Release)) 5 - 10 mg PO Q4H PRN PRN Reason: Pain & Pre PT Stop: 01/31/23 10:24 Last Admin: 01/20/23 05:19 Dose: 10 mg Pneumococcal Polyvalent Vaccine (Do Not Administer Pneumococcal Vaccine) 1 each N/A PRN PRN PRN Reason: Notification Stop: 02/16/23 10:24 Polyethylene Glycol (Polyethylene (Miralax) 17 Gm Pack) 17 gm PO Q6 [facility] [place] Stop: 02/17/23 05:59 Last Admin: 01/20/23 05:20 Dose: Not Given Senna/Docusate Sodium (Docusate Sodium/Senna 50/8.6mg Tab) 1 tab PO BID [facility] [place] Stop: 02/14/23 08:59 Last Admin: 01/19/23 20:55 Dose: 1 tab Sodium Biphosphate/Sodium Phosphate (Sod Phosphate/Sod Biphosphate Enema 132 Ml Btl) 132 ml AR ONE PRN PRN Reason: Constipation Stop: 02/16/23 10:24 Tramadol HCl (Tramadol Hcl 50 Mg Tablet) 50 - 100 mg PO Q4H PRN PRN Reason: Moderate-Severe pain & Pre PT Stop: 02/16/23 10:24
[2023-01-20] MEDS: LANTUS PER UNIT CHARGE SC SCH (08:11)
[2023-01-20] MEDS: INSULIN ASPART PER UNIT CHARGE SC SCH (08:11)
[2023-01-20] MEDS: DOCUSATE SODIUM/SENNA 50/8.6MG TAB PO SCH (08:12)
[2023-01-20] MEDS: MAGNESIUM CHLORIDE W/CALCIUM 64MG DELAYED REL TAB PO SCH (08:12)
[2023-01-20] MEDS: dexAMETHasone 6 MG in SYRINGE 0 ML IV SCH (08:13)
[2023-01-20] MEDS: LIDOCAINE 5% 1 PATCH TD SCH (08:15)
--- NOTE | 2023-01-20 08:31 | Orthopedic Progress Note ---
Date of Service January 20, 2023 Assessment & Plan (1) Lumbar disc herniation with radiculopathy: Plan: Eduardo is postoperative day 3 status post TLIF L4-5. He is orthopedically stable for discharge. DC CHRISTINA drain and dressing changes prior to discharge. I have ordered a shower. DVT prophylaxis in the form of teds and SCDs. Continue with pain control. Admission and Anticipated Discharge Date Admission Date: January 15, 2023 Subjective Eduardo is postoperative day 3 status post TLIF L4-5. He is doing great. Leg pain has resolved. Back pain is controlled. CHRISTINA drain output last shift is 20 cc. H&H is morning are 11.8 and 35.7 respectively. He has seen physical therapy Rosa Isela 325 feet. Review of Systems Review of Systems: All systems reviewed & are unremarkable except as noted in HPI & below Physical Exam Physical Exam: He sitting up in bed in no acute distress Alert and oriented x3 Strength is intact bilateral lower extremities Lumbar dressing is clean dry and intact with functioning CHRISTINA drain Results & Data Vital Signs (Past 12 Hours) Vital Signs Temp Pulse Resp BP Pulse Ox O2 Del Method 01/20/23 07:19 71 97 Room Air 01/20/23 07:00 37.2 C 100 H 16 130/74 92 Room Air
--- NOTE | 2023-01-20 09:36 | Discharge Summary ---
Date of Service January 20, 2023 Admission HPI Per Admitting Provider 67-year-old male with PMH of T2DM, HLD, HTN, BPH presented to the ED with complaint of abrupt worsening of right lower back pain since yesterday, patient notes that he has been having some right low back pain for past couple of days. Reports pain is sharp, radiating down right lower extremity up to ankle, unable to lie flat or stand, slept on recliner last night, it is affecting his activities of daily living severely and hence decided to come to the hospital. Patient reports pain of 8/10 intensity. Patient denies fever/headache/dizziness/sore throat/cough/chest pain/palpitations/abdominal pain/acute changes in his bowel or bladder habits. Patient reports he generally walks 3 miles a day without any shortness of breath/chest pain/getting winded/dizziness. Patient reports no smoking, quitting drinking in 1995, denies use of recreational drugs Full code Medications reviewed with the patient, plan of care discussed with the patient and patient was agreeable. Admission Exam Per Admitting Provider GENERAL: Alert and oriented x3. Mild distress due to pain, on RA. HEENT: No pallor, no icterus. Pupils equal, round and reactive to light. Oral mucosa moist. NECK: No JVD, no neck masses. HEART: S1 and S2 heard. Regular rate and rhythm. No murmur, no gallop. RESPIRATORY SYSTEM: Normal AP diameter. No accessory muscle use. No wheezing, no crackles. ABDOMEN: Soft, bowel sounds present, nontender, no distention. CENTRAL NERVOUS SYSTEM: No facial droop. Speech is clear. Obeys simple commands. Moves extremities. EXTREMITIES: No edema, no erythema seen. SLRT could not be performed as patient cannot lie flat, patient was sitting up in bed/leaning forward. Principal Diagnosis Lumbar disc herniation with radiculopathy Discharge Exam Gen: WD/WN, M in NAD, laying in bed resting comfortably, A&Ox3 HEENT: Normocephalic, atraumatic, conjunctivae moist, sclerae anicteric, mucous membranes moist Lung: Clear to Auscultation bilaterally, no wheezes/rales/rhonchi Heart: Regular rate, regular rhythm, no murmurs, rubs, or gallops Abdomen: Soft, NT, ND +BS x 4 Extremities: Spinal dressing c/d/i, +CHRISTINA drain, no edema, no sensory or motor deficits noted in BLE Skin: Warm, no rash Discharge Data Allergies Allergy/AdvReac Type Severity Reaction Status Date / Time bee venom protein (honey bee) Allergy Intermediate ITCHING/SWE Verified 01/13/23 09:58 LLING Penicillins Allergy Unknown RASH Verified 01/13/23 09:58 Consultations 01/13/23 10:35 ED Decision to Admit Stat 01/14/23 08:48 Consult Orthopedic Surgery Routine Procedures Performed Operation Date: 01/17/23 07:45 Actual Procedures p L4-L5 Decompression and Fusion, Spinal Cord Monitoring(Not Applicable) - Grady Talamantes DO Ordered Studies 01/13/23 07:16 CT lumbar spine wo con Stat 01/13/23 08:16 CT abd pelvis wo con Stat FINDINGS: Lower chest: No acute abnormality. Atherosclerotic disease is seen in the coronary arteries. Liver: Unremarkable. No focal lesions are seen. Gallbladder and biliary tree: No calcified gallstones. Normal caliber wall. No intra- or extrahepatic biliary ductal dilation. Pancreas: Unremarkable, no focal lesions. Spleen: Unremarkable. Adrenals: Unremarkable. Kidneys and ureters: Nonobstructive nephrolithiasis is seen. Bladder: Unremarkable. Reproductive organs: Unremarkable. Bowel: Diverticulosis is seen without evidence of diverticulitis. There is a tiny hiatal hernia. Lymph nodes Retroperitoneal: Unremarkable. Pelvic: Unremarkable. Mesenteric: Unremarkable. Peritoneum: Normal. Vessels: Atherosclerotic calcifications are seen. Abdominal wall: Left fat containing inguinal hernia. Bones: Prominent degenerative changes are seen in the spine and left greater than right hip joints. Partial visualization of degenerative disc disease in the lower spine which may result in significant neural foraminal stenosis. IMPRESSION: 1. No acute abnormalities in particular no evidence of fracture or other acute abnormality to explain leg pain. Degenerative changes are seen in the spine, if there is concern for neural foraminal stenosis, MRI can be performed. 2. Nonobstructive nephrolithiasis. 3. Diverticulosis without diverticulitis. 01/14/23 09:38 MR lumbar spine wo con Urgent FINDINGS: Vertebrae: Modic degenerative endplate changes are seen in the lumbar spine. Grade 1 anterolisthesis of L4 on L5. Chronic compression deformity of the T11 and T12 vertebral bodies. Spinal cord: Unremarkable. No discrete signal abnormality is seen in the distal spinal cord or the descending nerve roots on motion degraded examination. Soft tissues: Unremarkable. DISCS/SPINAL CANAL/NEURAL FORAMINA: T12-L1: Disc bulge with endplate osteophytes and bilateral facet arthrosis. No significant spinal canal stenosis or foraminal narrowing. L1-L2: Disc bulge with endplate osteophytes and bilateral facet arthrosis. No significant spinal canal stenosis or foraminal narrowing. L2-L3: Disc bulge with endplate osteophytes and bilateral facet arthrosis. Mild spinal canal stenosis. Mild bilateral foraminal narrowing. L3-L4: Disc bulge with endplate osteophytes and bilateral facet arthrosis. Moderate spinal canal stenosis. Moderate right and mild-to- moderate left foraminal narrowing. L4-L5: Disc bulge with endplate osteophytes and severe bilateral facet arthrosis. Bilateral facet joint effusions as well as synovial cysts. Moderate spinal canal stenosis. Severe bilateral foraminal narrowing with possible impingement of exiting bilateral L4 nerve roots. L5-S1: Disc bulge with endplate osteophytes and severe bilateral facet arthrosis. Bilateral facet joint effusions. No significant spinal canal stenosis. Moderate to severe bilateral foraminal narrowing. Other findings: Examination is severely degraded by extensive patient motion. IMPRESSION: 1. Examination is severely degraded by extensive patient motion. 2. Moderate to severe degenerative change of the lumbar spine as described. 3. Moderate spinal canal stenosis is seen L3-L4 and L4-L5. 4. Severe bilateral foraminal narrowing at L4-L5 with possible impingement of the exiting bilateral L4 nerve roots. Recommend correlation for symptoms. 01/17/23 07:45 FL lumbar spine 2-3V Routine Hospital Course (1) Radicular pain of right lower extremity: (2) Right low back pain: Plan Patient came in with abrupt worsening of right lower back pain radiating down to RLE. He is being managed for the following: Lumbosacral radiculopathy Ambulatory dysfunction Had Injection [address] Ma per patient --Lumbar CT:No acute abnormalities in particular no evidence of fracture or other acute abnormality to explain leg pain. Degenerative changes are seen in the spine, if there is concern for neural foraminal stenosis, MRI can be performed. --MRI:1. Examination is severely degraded by extensive patient motion.2. Moderate to severe degenerative change of the lumbar spine as described.3. Moderate spinal canal stenosis is seen L3-L4 and L4-L5.4. Severe bilateral foraminal narrowing at L4-L5 with possible impingement of the exiting bilateral L4 nerve roots. Recommend correlation for symptoms. S/p lumbar decompression bilaterally facetectomies and foraminotomies L3 L4-5, posterior spinal fusion L4-[address] Talamantes Per ortho for pain control, wound care, anticoagulation and activities Monitor H&H - hgb 11.8 today Acute blood loss anemia, post-op, vs dilutional component Pre-op Hgb 13-14, post op Hgb 12. Currently Hgb 11.8 - cont. to monitor H&H - no need for blood transfusion Hypomagnesemia Started on oral supplement Nonobstructive nephrolithiasis. Diverticulosis without diverticulitis. Incidental findings on CT Follow-up as outpatient Hyperlipidemia Continue atorvastatin Hypertension Continue losartan DM II A1c 6.6 on 01/18 Hold PO meds -> resume on discharge Glycemic consult given high dose steroids post-op Monitor blood glucose levels Total Time Total Time Spent Total Time Spent (In Minutes): 40 Discharge Plan Discharge Items Patient Disposition: Home - Self-Care Reason For Visit: RT LOW BACK PAIN Discharge Diagnosis: Lumbar disc herniation with radiculopathy Condition on Discharge: Good Activity: As commented below Lifting: No more than 5 pounds Bathing Comment: may shower 01/20 Exercise/Sports: None Weightbearing: Full weightbearing Non-emergency contact: Primary Care Provider Call non-emergency contact if: you have any medication questions Follow-up/Referrals: Preeti Landin MD [Primary Care Provider] - (Date & Time 01/24/2023 10:20 AM Provider Preeti Landin MD Department General Internal Medicine [facility] ) Diet: Regular Addtl Attending Provider Instructions: Follow up with primary care doctor on 01/24/2023 Recommend taking magnesium supplement and have you magnesium re-checked with your primary care doctor. Per surgeon: ACTIVITY RECOMMENDATIONS: SELF CARE INSTRUCTIONS AFTER THORACIC/LUMBAR FUSIONS 1. You may walk to your tolerance. It is good exercise for your legs and back. Expect some back and intermittent leg aches and pains. 2. You may perform "counter-top" level activities (make a sandwich, kyle with a project, etc.). 3. No bending or lifting of more than 10 pounds or back twisting of any nature (roll like a log when turning in bed). 4. You may ride in a car for 20-30 minutes at a time. No driving until after your first visit with your doctor. 5. Frequent changes of position and restricting sitting to 30 minutes at a time will help limit the amount of back spasms and stiffness you may experience. 6. You may discontinue the use of ambulatory aids (cane, crutches, etc.) once your strength and confidence allow. 7. 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 Do not take a tub bath, sit in a hot tub or go into a swimming pool until after your first recheck in the office. SPECIAL CARE INSTRUCTIONS: VERY IMPORTANT TO READ AND REVIEW A. Your surgical incision has been closed with a cosmetic suture under the skin that will dissolve in about 6 weeks. In 14 days, you can use a pair of clean scissors and cut the suture that is left outside of the skin at the ends of your incision. 1. The small skin tapes can be removed 7 days after surgery if they have not fallen off by that point. 2. You may keep the wound open to air as much as possible to promote healing after post-op day number 5 unless told otherwise by your doctor. 3. If you think the wound looks like it is becoming infected (redness or worsening drainage) and/or you are experiencing fever, chill or worsening back pain and muscle spasms, contact the office so that we may evaluate you as soon as possible. B. Complications are uncommon, but please contact us if you have any signs or symptoms of: 1. wound infection (fever higher than 102.5 degrees F, redness, separation of wound, drainage, or increasing pain from the incision) 2. blood clots in legs (pain, swelling, redness and warmth in legs) 3. urinary tract infection (fever higher than 102.5 degrees F, burning upon urination or increased frequency of urination) 4. nerve problems (inability to walk on your toes or heels, numbness, loss of bowel or bladder control) 5. any other symptoms that concern you C. Please call the office at if you have any concerns or questions about your operation or recovery. D. No smoking! Smoking drastically decreases the chance of a solid fusion. E. Do not take any anti-inflammatory medications (Indocin, Advil, Motrin, Aspirin, Naprosyn, etc.) as these may inhibit the chance of a solid fusion. Tylenol is okay to take for pain. MANAGING PAIN AFTER SPINAL SURGERY 1. Narcotic medication is intended for short-term use and will be provided for surgical pain. Surgical pain usually lasts for a period of 4-6 weeks. Narcotic medication includes Percocet, Vicodin, Darvocet, Tylenol #3 or Lortab. 2. Longer-term pain is more appropriately treated with non-narcotic medication such as Tylenol ES. 3. Muscle spasm is not appropriately treated with narcotics. Muscle relaxers such as Soma, Flexeril or Skelaxin can be used along with Tylenol ES. 4. Remember that we all live with some "aches and pains". This is not unusual or uncommon after an injury or as we get older. a. Back pain is expected and may include muscle spasms for 4 to 6 weeks after surgery. The pain should gradually improve. If the pain worsens for no apparent reason, please contact the office. b. Intermittent leg pain may also be experienced and should not be concerned about unless it worsens for no apparent reason. If so, please contact the office. 5. We will provide appropriate medication within the normal guidelines of their prescribed use. We will also be very cautious and aware of potential abuse and extended duration of patients' medication needs. a. Pain medications are for your comfort and to assist with sleep and rest so that the tissue can heal. They are not provided in order to return to normal activity and should not be used through the day. To do so or worsening pain at night can result from ongoing tissue damage and development of tolerance to the prescribed medicine. 6. Please allow 2-3 days to process refills. Prescriptions will not be mailed but must be picked up at the office. FOLLOW UP VISIT: Keep your scheduled follow-up appointment. Any questions, please call the office at . 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 Brake Worker Provider Instructions: please call [facility] for follow up appointment in 2 weeks [phone] Pending Studies at Discharge: No Stand-Alone Forms: My [employer], Smoking Cessation Medications and CO Order Prescriptions: New tramadol 50 mg tablet 50 mg PO Q6H PRN (Reason: pain, moderate) Qty: 30 0RF oxycodone 5 mg tablet 5 mg PO Q6H PRN (Reason: pain) Qty: 30 0RF Mag 64 64 mg Tablet,Delayed Release (Dr/Ec) 64 mg PO DAILY Qty: 7 0RF Continued atorvastatin 40 mg Tablet 40 mg PO HS aspirin [Aspir-81] 81 mg Tablet,Delayed Release (Dr/Ec) 81 mg PO PM losartan 25 mg Tablet 25 mg PO PM Ozempic 1 mg/dose (2 mg/1.5 mL) Pen Injector 1 mg SUBCUT WK Rx Instructions: MONDAYS glipizide 10 mg tablet extended release 24hr See Rx Instructions .ROUTE .COMPLEX Rx Instructions: Take 10mg tablet w/ 5mg tablet by mouth to equal 15mg every evening glipizide 5 mg tablet extended release 24hr See Rx Instructions .ROUTE .COMPLEX Rx Instructions: Take 5mg tablet w/ 10mg tablet by mouth to equal 15mg every evening metformin 500 mg tablet extended release 24 hr 2,000 mg PO PM Discharge Orders: Discharge Order (Routine); Ordered 01/20/23 Ordered By: Conor Bustos/Other Patient Handouts: Managing Type 2 Diabetes Admission Data Admit Date/Time: 01/15/23 07:59 Attending Provider: Conor Álvarez Admit Provider: Mallorie Miller Primary Care Provider: Preeti Landin Other Providers: Melida Mazariegos; Mallorie Miller; Grady Talamantes; Prashanth Caldwell
== END 2023-01-20 11:36 | disposition home or self-care (01) | DRG 454 ==
LOC: ED 06:57 → 3E 06:57 → SUATTDRO 10:39 → 3E 11:47 → SUATTDRO 01-15 07:59